=== PATIENT | male | born 1950 | race American Indian/Alaskan Native ===

== ENCOUNTER 2017-07-23 11:48 | Emergency (ER) | payer MEDICARE, OTHER ==
[2015-09-01 14:25] VITALS: BMI 23.3
[2017-07-23 11:53] VITALS: BP 152/81; PULSE 60; TEMP 98.4; O2SAT 94
--- NOTE | 2017-07-23 12:40 | RAD ---
HISTORY: SOB COMPARISON: Chest x-ray performed 02/27/16 TECHNIQUE: Chest PA and lateral FINDINGS: LUNGS: No focal consolidation. Please note that chest x-ray has limited sensitivity for the detection of pulmonary masses. PLEURA: No significant pleural effusion identified. No definite pneumothorax . CARDIOVASCULAR: Cardiomegaly. Tortuous aorta. OSSEOUS STRUCTURES: Degenerative changes of the spine. VISUALIZED UPPER ABDOMEN: Unremarkable. OTHER FINDINGS: None. IMPRESSION: No focal consolidation, significant pleural effusion, or definite pneumothorax identified.
[2017-07-23 12:48] LABS: BASO # 0.1 K/uL (0.0-0.2); BASO % 2.8 % (0.0-2.0); EOS # 0.5 K/uL (0.0-0.7); EOS % 10.8 % (0.0-4.0); HEMATOCRIT 44.1 % (35.0-51.0); LYMPH % 39.7 % (20.0-40.0); MEAN CELL VOLUME 91.9 fL (80.0-94.0); MEAN CORPUSCULAR HEMOGLOBIN 30.5 pg (27.0-31.0); MEAN CORPUSCULAR HGB CONC 33.2 g/dL (33.0-37.0); MEAN PLATELET VOLUME 8.8 fL (7.2-11.7); MONO # 0.7 K/uL (0.0-0.8); MONO % 14.9 % (0.0-10.0); NRBC % 0.1 % (0.0-2.0); RED CELL DISTRIBUTION WIDTH 14.2 % (11.5-14.5); WHITE BLOOD COUNT 4.9 K/uL (4.8-10.8)
--- NOTE | 2017-07-23 12:49 | C.PDOC ---
History Of Present Illness 66 yr old male with PMHx of COPD, presents to the ER with complaints of SOB for 1 week. Patient states he has been using his nebulizer treatments at home with no relief. Patient states he also started coughing up white sputum. He admits started smoking again. Denies fever or chest pain. Time Seen by Provider: 07/23/17 12:16 Chief Complaint (Nursing): Shortness Of Breath History Per: Patient History/Exam Limitations: no limitations Onset/Duration Of Symptoms: Days (1 week) Initiating Event: Exposure To Smoke Current Respiratory Medications: See Home Med List Associated Symptoms: Productive Cough Past Medical History Reviewed: Historical Data, Nursing Documentation, Vital Signs Vital Signs: Last Vital Signs Temp 98.4 F 07/23/17 11:50 Pulse 60 07/23/17 11:50 Resp 20 07/23/17 12:55 BP 152/81 H 07/23/17 11:50 Pulse Ox 94 L 07/23/17 13:21 - Medical History PMH: Asthma (CHILDHOOD), COPD, Fractures, HTN Surgical History: Coronary Stent (X2) Family History: States: No Known Family Hx - Social History Hx Alcohol Use: Yes Hx Substance Use: No - Immunization History Hx Tetanus Toxoid Vaccination: No Hx Influenza Vaccination: No Hx Pneumococcal Vaccination: No Review Of Systems Except As Marked, All Systems Reviewed And Found Negative. Constitutional: Negative for: Fever Cardiovascular: Negative for: Chest Pain Respiratory: Positive for: Cough, Shortness of Breath, Sputum (White) Gastrointestinal: Negative for: Vomiting, Abdominal Pain, Diarrhea Genitourinary: Negative for: Dysuria Skin: Negative for: Rash Neurological: Negative for: Weakness, Numbness, Headache, Dizziness Physical Exam - Physical Exam Appears: Non-toxic, No Acute Distress Skin: Warm, Dry, No Rash Head: Atraumatic, Normacephalic Eye(s): bilateral: Normal Inspection, EOMI Nose: Normal, No Flaring Oral Mucosa: Moist Throat: Normal, No Erythema, No Exudate Neck: Normal ROM, Supple Chest: Symmetrical, No Tenderness Cardiovascular: Rhythm Regular, No Murmur Respiratory: No Accessory Muscle Use, No Rales, Rhonchi (Scattered), Wheezing ( Bilateral ) Gastrointestinal/Abdominal: Normal Exam, Soft, No Tenderness, No Guarding, No Rebound Extremity: Normal ROM, No Pedal Edema, No Swelling Neurological/Psych: Oriented x3, Normal Speech Gait: Steady ED Course And Treatment - Laboratory Results Result Diagrams: 07/23/17 12:36 07/23/17 12:36 Lab Interpretation: No Acute Changes O2 Sat by Pulse Oximetry: 94 (RA) Pulse Ox Interpretation: Normal - Other Rad CXR X-Ray: Viewed By Me, Read By Radiologist Interpretation: HISTORY: SOB. COMPARISON: Chest x-ray performed 02/27/16. TECHNIQUE: Chest PA and lateral. FINDINGS: LUNGS: No focal consolidation. Please note that chest x-ray has limited sensitivity for the detection of pulmonary masses. PLEURA: No significant pleural effusion identified. No definite pneumothorax . CARDIOVASCULAR: Cardiomegaly. Tortuous aorta. OSSEOUS STRUCTURES: Degenerative changes of the spine. VISUALIZED UPPER ABDOMEN: Unremarkable. OTHER FINDINGS: None. IMPRESSION: No focal consolidation, significant pleural effusion, or definite pneumothorax identified. Medical Decision Making Medical Decision Making: Plan: * CXR * CBC * CMP * Albuterol IH * Solumedrol IVP Progress: CXR shows No focal consolidation, significant pleural effusion, or definite pneumothorax identified. Labs reviewed no leukocytosis or acute abnormality Patient was treated with duonebs and IV steroids. Patient observed in the ER for over 2 hours. Upon reevaluation patient is resting comfortably in no respiratory distress. He reports feeling better. Lung sounds have improved better air exchange, mild expiratory wheeze. He feels comfortable going home and asking for prescriptions. 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 Will discharge home and instruct to follow up with PCP Dr Hopper Disposition Counseled Patient/Family Regarding: Studies Performed, Diagnosis, Need For Followup, Rx Given, Smoking Cessation - Disposition Referrals: Hi Hopper MD [Staff Provider] - Disposition: HOME/ ROUTINE Disposition Time: 14:40 Condition: IMPROVED Additional Instructions: Follow up with your primary medical doctor Ruchi in 2-5 days for further evaluation. Take medications as prescribed. Return to the emergency department at any time if symptoms persist or worsen. 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 - Scribe Statement The provider has reviewed the documentation as recorded by the Scribe Chely Giraldo All medical record entries made by the Scribe were at my direction and personally dictated by me. I have reviewed the chart and agree that the record accurately reflects my personal performance of the history, physical exam, medical decision making, and the department course for this patient. I have also personally directed, reviewed, and agree with the discharge instructions and disposition.
[2017-07-23] MEDS ORDERED: Albuterol-Ipratrop 3 mg / 0.5 (3 ml) UD ONE ×2 (12:50→13:03)
[2017-07-23] MEDS: Albuterol-Ipratrop 3 mg / 0.5 (3 ml) UD IH SCH ×3 (12:52→13:15)
[2017-07-23 12:57] VITALS: RESP 20
[2017-07-23 13:00] LABS: CHLORIDE 101 mmol/L (98-107); POTASSIUM 4.4 mmol/L (3.6-5.2); SODIUM 143 mmol/L (132-148)
[2017-07-23 13:02] LABS: ALB/GLOB RATIO 1.1 (1.0-2.1); AST/SGOT 29 U/L (17-59); BILIRUBIN,TOTAL 0.9 mg/dL (0.2-1.3); CARBON DIOXIDE 28 mmol/L (22-30); GFR AFRICAN-AMERICAN > 60; TOTAL PROTEIN 7.3 g/dL (6.3-8.3)
[2017-07-23 13:03] LABS: ALKALINE PHOSPHATASE 101 U/L (38-126); ALT/SGPT 26 U/L (21-72); BLOOD UREA NITROGEN 13 mg/dL (9-20); CALCIUM 9.7 mg/dl (8.6-10.4); GLUCOSE,RANDOM 80 mg/dL (75-110)
== END 2017-07-23 14:49 | disposition home or self-care (01) ==
LOC: C.ER 11:48
DX: J44.1 Chronic obstructive pulmonary disease with (acute) exacerbation (principal)
CPT/HCPCS: 71020; 80053; 83880; 85025; 94150; 94640; 96374; 99283; J2930

== ENCOUNTER 2018-12-17 09:13 | Inpatient (IN) | payer MEDICARE ==
[2018-12-17 09:28] VITALS: BMI 25.9
[2018-12-17] MEDS ORDERED: Iodixanol 320 MG/ML 100 ML BOTTLE IV ONE ×2 (09:35→09:41)
[2018-12-17 09:39] LABS: BASO % 0.9 % (0.0-2.0); EOS # 0.1 K/uL (0.0-0.7); EOS % 3.2 % (0.0-4.0); HEMOGLOBIN 14.6 g/dL (12.0-18.0); LYMPH % 51.7 % (20.0-40.0); MEAN CORPUSCULAR HGB CONC 33.3 g/dL (33.0-37.0); MEAN PLATELET VOLUME 8.6 fL (7.2-11.7); MONO # 0.5 K/uL (0.0-0.8); MONO % 13.9 % (0.0-10.0); NEUT # 1.2 K/uL (1.8-7.0); NEUT % 30.3 % (50.0-75.0); RBC 4.7 Mil/uL (4.40-5.90); RED CELL DISTRIBUTION WIDTH 13.6 % (11.5-14.5); WHITE BLOOD COUNT 3.9 K/uL (4.8-10.8)
--- NOTE | 2018-12-17 09:41 | C.PDOC ---
History Of Present Illness 68 year old male with a PMHx of HTN brought in by for complaints of left upper extremity weakness that began at 7:00am while making breakfast. Patient also felt right-sided facial weakness and was having some difficulty with speech per at bedside. He denies any facial numbness/droop, visual loss, dizziness, headache, chest pain, or SOB. Patient also reports he felt off balance while walking. On arrival, he states symptoms are completely resolved and he has no focal weakness. Patient speaking in full sentences. Seen im mediately on arrival and Code Stroke initiated. Time Seen by Provider: 12/17/18 09:30 Chief Complaint (Nursing): Weakness/Neurological Deficit History Per: Patient History/Exam Limitations: no limitations Onset/Duration Of Symptoms: Hrs (x 1) Current Symptoms Are (Timing): Still Present Seizure Or Post-ictal Symptoms: None Past Medical History Reviewed: Historical Data, Nursing Documentation, Vital Signs Vital Signs: Last Vital Signs Temp 97.8 F 12/17/18 09:18 Pulse 67 12/17/18 09:18 Resp 18 12/17/18 09:18 BP 154/89 H 12/17/18 09:18 Pulse Ox 99 12/17/18 09:18 - Medical History PMH: Asthma (CHILDHOOD), COPD, Fractures, HTN Denies: Chronic Kidney Disease Surgical History: Coronary Stent (X2) Family History: States: No Known Family Hx - Social History Hx Alcohol Use: Yes Hx Substance Use: No - Immunization History Hx Tetanus Toxoid Vaccination: No Hx Influenza Vaccination: No Hx Pneumococcal Vaccination: No Review Of Systems Constitutional: Negative for: Fever Eyes: Negative for: Vision Change Cardiovascular: Negative for: Chest Pain, Palpitations Respiratory: Negative for: Cough, Shortness of Breath Gastrointestinal: Negative for: Nausea, Vomiting, Diarrhea Musculoskeletal: Negative for: Back Pain Skin: Negative for: Rash, Lesions Neurological: Positive for: Weakness (left arm weakness and right facial weakness, now resolved), Change in Speech (now resolved). Negative for: Numbness, Incoordination, Confusion, Headache, Dizziness Physical Exam - Physical Exam Appears: Non-toxic, No Acute Distress Skin: Normal Color, Warm, Dry Head: Atraumatic, Normacephalic Eye(s): bilateral: Normal Inspection (conjunctiva clear, no nystagmus), PERRL, EOMI Nose: Normal Oral Mucosa: Moist Neck: Normal ROM Chest: Symmetrical Cardiovascular: Rhythm Regular, No Murmur Respiratory: Normal Breath Sounds, No Rales, No Rhonchi, No Wheezing Gastrointestinal/Abdominal: Soft, No Tenderness, No Distention Extremity: Bilateral: Atraumatic, Normal Color And Temperature, Normal ROM, Other (Bolt Sawyer strength equal bilaterally) Pulses: Left Dorsalis Pedis: Normal, Right Dorsalis Pedis: Normal Neurological/Psych: Oriented x3, Normal Speech (speaking in full sentences, no slur), Normal Cognition, Normal Cranial Nerves (2-12 grossly intact), Normal Motor, Normal Sensation, No Expressive Aphasia, No Dysarthria, Other (No drift, extremities with 5/5 strength throughout, patient following commands) Gait: Steady Other Neurological Findings: No Facial Palsy Extremity: Right: No Drift, Left: No Drift, Upper: No Drift, Lower: No Drift ED Course And Treatment - Laboratory Results Result Diagrams: 12/20/18 05:40 12/20/18 05:40 ECG: Interpreted By Me, Viewed By Ut ECG Rhythm: Sinus Bradycardia ECG Interpretation: No Acute Changes Rate From EC (bpm) O2 Sat by Pulse Oximetry: 99 (RA) Pulse Ox Interpretation: Normal - Other Rad CXR X-Ray: Read By Radiologist Interpretation: Accession No. : [id number]. Patient Name / ID : MARE CONTI / [id number]. Exam Date : 12/17/2018 09:43:02 ( Approved ). Study Comment : Sex / Age : M / 68Y. Creator : Zain Baer MD. Dictator : Zain Baer MD. Courtesy Driver : Hide Examiner : Zain Baer MD. Approver2 : Report Date : 12/17/2018 09:56:06. My Comment : . Date of service: 12/17/2018. HISTORY: Code Stroke. COMPARISON: 07/23/2017. FINDINGS: LUNGS: No active pulmonary disease. PLEURA: Curvilinear calcification at the level of the right hemidiaphragm which may be related to calcified diaphragmatic pleural plaque. This is not evident on the prior chest radiograph of 2017. This could indicate asbestos related pleural disease but is not certain merely on the basis of this examination. No pleural effusion or pneumothorax. CARDIOVASCULAR: No aortic atherosclerotic calcification present. Normal cardiac size. No pulmonary vascular congestion. OSSEOUS STRUCTURES: No significant abnormalities. V ISUALIZED UPPER ABDOMEN: Normal. OTHER FINDINGS: None. IMPRESSION: No infiltrate. Questionable calcified pleural plaque along right nish diaphragmatic pleural surface. No additional abnormality. - CT Scan/US CT Head Other Rad Studies (CT/US): Read By Radiologist, Radiology Report Reviewed CT/US Interpretation: Accession No. : [id number]. Patient Name / ID : MARE CONTI / [id number]. Exam Date : 12/17/2018 09:34:05 ( Approved ). Study Comment : Sex / Age : M / 68Y. Creator : Zain Baer MD. Dictator : Zain Baer MD. Courtesy Driver : Hide Examiner : Zain Baer MD. Approver2 : Report Date : 12/17/2018 09:47:15. My Comment : . Date of service: 12/17/2018. PROCEDURE: CT HEAD WITHOUT CONTRAST. HISTORY: Code Stroke. COMPARISON: Not available. TECHNIQUE: Axial computed tomography images were obtained through the head/brain without intravenous contrast. Radiation dose: Total exam DLP = 1060.58 mGy-cm. This CT exam was performed using one or more of the following dose reduction techniques: Automated exposure control, adjustment of the mA and/or kV according to patient size, and/or use of iterative reconstruction technique. FINDINGS: HEMORRHAGE: No intracranial hemorrhage. BRAIN: No mass effect or edema. No evidence of acute infarct. Minimal chronic periventricular matter ischemic change adjacent to the frontal horns of lateral ventricles. VENTRICLES: Unremarkable. No hydrocephalus. CALVARIUM: Unremarkable. PARANASAL SINUSES: Unremarkable as visualized. No significant inflammatory changes. MASTOID AIR CELLS: Unremarkable as visualized. No inflammatory changes. OTHER FINDINGS: None. IMPRESSION: No evidence of acute infarct. No intracranial hemorrhage. Minimal chronic white matter ischemic change. Findings were discussed by telephone with Dr. Concepcion at 9:46 a.m. on 12/17/2018. CTA Head/Neck Other Rad Studies (CT/US): Read By Radiologist, Radiology Report Reviewed CT/US Interpretation: Accession No. : [id number]. Patient Name / ID : MARE CONTI / [id number]. Exam Date : 12/17/2018 09:38:22 ( Approved ). Study Comment : Sex / Age : M / 68Y. Creator : Babak Abdul MD. Dictator : Babak Abdul MD. Courtesy Driver : Hide Examiner : Babak Abdul MD. Approver2 : Report Date : 12/17/2018 10:40:17. My Comment : . Date of service: 12/17/2018. PROCEDURE: CT Angiography of the Brain. HISTORY: code stroke. COMPARISON: None available. TECHNIQUE: CT angiography of the intracranial arteries was performed. Coronal and sagittal maximum intensity projection reformated images were generated. Radiation dose: Total exam DLP = 615.93 mGy- cm. This CT exam was performed using one or more of the following dose reduction techniques: Automated exposure control, adjustment of the mA and/or kV according to patient size, and/or use of iterative reconstruction technique. FINDINGS: INTERNAL CEREBRAL ARTERIES: Atherosclerotic plaques identified at the bilateral cavernous internal carotid artery segments resulting in at least a moderate stenosis at the right ICA but no significant stenosis at the left. The skull base, petrous, and supraclinoid segments are otherwise bilaterally widely patent. ANTERIOR CEREBRAL ARTERIES: Unremarkable. A1 and A2 segments are widely patent. Smaller distal branches unremarkable, as visualized. MIDDLE CEREBRAL ARTERIES: Unremarkable. M1 and M2 segments are widely patent. Perisylvian branches grossly symmetric. POSTERIOR CIRCULATION: Basilar Artery: Ectatic, widely patent basilar artery. Distal Vertebral Arteries: Hypoplastic right vertebral artery with left dominant vertebrobasilar circulation. Posterior Cerebral Arteries: Unremarkable. Posterior Inferior Cerebellar Arteries: Unremarkable. NECK CTA: Common Carotid arteries: Limited bilateral carotid bulbar atherosclerosis, partially calcified. The bilateral common carotid appear widely patent from their origins to their bifurcations with no significant stenosis appreciated. No evidence to suggest common carotid artery dissection. Internal Carotid arteries: No significant stenosis is appreciated throughout the cervical internal carotid artery segments bilaterally and there is no evidence of dissection either. External Carotid arteries: Appear unremarkable bilaterally. Vertebral arteries: The bilateral vertebral arteries appear patent from their origins to their distal cervical segments. No significant stenosis or definite pattern of dissection. Moderately hypoplastic right vertebral artery identified. ANEURYSM/ VASCULAR MALFORMATIONS: None. OTHER FINDINGS: None. IMPRESSION: 1. Limited bilateral carotid bulbar atherosclerosis without significant stenosis in the bilateral common or internal carotid arteries identified. 2. Bilateral cavernous partially calcified atherosclerosis with a least moderate stenosis at the right but no significant left-sided stenosis. Bilateral ICAs appear patent through their bifurcations. 3. No definite intracranial or extracranial arterial occlusion appreciable. 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 NIHSS Stroke Scale 2 - Date/Time Evaluation Performed Date Performed: 12/17/18 Time Performed: 09:20 When Was NIHSS Performed: Code Stroke - How Severe is the Stroke Level of Consciousness: 0=Alert LOC to Questions: 0=Both comments correct LOC to commands: 0=Obeys both correctly Best Gaze: 0=Normal Visual: 0=No visual loss Facial: 0=Normal Motor Arm - Left: 0=No drift Motor Arm - Right: 0=No drift Motor Leg - Left: 0=No drift Motor Leg - Right: 0=No drift Limb Ataxia: 0=Absent Sensory: 0=Normal Best Language: 0=No aphasia Dysarthia: 0=Normal articulation Extinction & Inattention (Neglect): 0=Normal, no object Score: 0 Medical Decision Making Medical Decision Makin:21 Patient was seen and evaluated immediately. Code Stroke orders placed. Pending CT Head. 9:[address] Medrano who advises that given all symptoms resolved, patient is not a TPA candidate. Requests CTA head/neck. 9:46 Informed by radiology that CT is negative for intracranial bleeding. Still pending labs, EKG, and CTA. 9:[address] Arrington, advised that AI picked up a large vessel occlusion on the scan. MRA and MRI likely recommended. 10:[address] Medrano, who advised not to order MRA but wants MRI of the brain. She recommends Integrilin 45mcg/kg bolus, and 0.5mcg/kg/min infusion. 10:07 Informed by RN that patient is currently unable to speak, non-verbal, not responding to questions. 10:11 Went to reassess patient, who is now speaking normally again. Episode lasted ~30 seconds per nursing staff at bedside. Sinus bradycardia @ 59 bpm, left axis deviation, normal intervals, no ST elevations or depressions 10:[address] Medrano, updated on clinical condition, and recommends giving IV fluids. 10:[address] Medrano, who discussed with neuro-interventionalists. Dr. Medrano states they want to transfer the patient to [place], where there is an open OR. Dr. Medrano is en route to evaluate the patient in the ED. 10:[address] Kahn, who reviewed CTA, states there is no occlusion. 10:48 Dr. Medrano is at bedside, evaluating patient. States she spoke again with interventionalists, plan is no longer to be transferred patient to be admitted to ICU. Now requesting MRA. Case discussed with Dr. Hopper, who accepts patient to his service. Paged Dr. Chidi mcgrath for ICU consult. 11:25 Left voice mail for lottery clerk, Dr. Degroot 11:31 Received call back from Dr. Degroot, patient accepted to ICU. Disposition Counseled Patient/Family Regarding: Studies Performed, Diagnosis - Disposition Disposition: HOSPITALIZED Disposition Time: 11:31 Condition: STABLE - POA Present On Arrival: None Core Measure Indicators: Code Stroke - Clinical Impression Clinical Impression: CVA (cerebral vascular accident) - Scribe Statement The provider has reviewed the documentation as recorded by the Milady Lindo Provider Attestation: All medical record entries made by the Briaibgiovanni were at my direction and personally dictated by me. I have reviewed the chart and agree that the record accurately reflects my personal performance of the history, physical exam, medical decision making, and the department course for this patient. I have also personally directed, reviewed, and agree with the discharge instructions and disposition. Decision To Admit - Pt Status Changed To: Hospital Disposition Of: Inpatient - Admit Certification Admit to Inpatient:: After my assessment, the patient will require hospitalization for at least two midnights. This is because of the severity of symptoms shown, intensity of services needed, and/or the medical risk in this patient being treated as an outpatient. - InPatient: Physician Admission Certification: I certify that this patient requires 2 or more midnights of care for the following reason:: CVA - . Bed Request Type: ICU Patient Diagnosis: CVA (cerebral vascular accident)
[2018-12-17 09:45] LABS: PROTHROMBIN TIME 11.2 SECONDS (9.7-12.2)
--- NOTE | 2018-12-17 09:51 | CT ---
Date of service: 12/17/2018 PROCEDURE: CT HEAD WITHOUT CONTRAST. HISTORY: Code Stroke COMPARISON: Not available TECHNIQUE: Axial computed tomography images were obtained through the head/brain without intravenous contrast. Radiation dose: Total exam DLP = 1060.58 mGy-cm. This CT exam was performed using one or more of the following dose reduction techniques: Automated exposure control, adjustment of the mA and/or kV according to patient size, and/or use of iterative reconstruction technique. FINDINGS: HEMORRHAGE: No intracranial hemorrhage. BRAIN: No mass effect or edema. No evidence of acute infarct. Minimal chronic periventricular matter ischemic change adjacent to the frontal horns of lateral ventricles. VENTRICLES: Unremarkable. No hydrocephalus. CALVARIUM: Unremarkable. PARANASAL SINUSES: Unremarkable as visualized. No significant inflammatory changes. MASTOID AIR CELLS: Unremarkable as visualized. No inflammatory changes. OTHER FINDINGS: None. IMPRESSION: No evidence of acute infarct. No intracranial hemorrhage. Minimal chronic white matter ischemic change. Findings were discussed by telephone with Dr. Concepcion at 9:46 a.m. on 12/17/2018.
[2018-12-17 09:55] LABS: ALB/GLOB RATIO 1.4 (1.0-2.1); ALBUMIN 4.8 g/dL (3.5-5.0); ALT/SGPT 10 U/L (21-72); AST/SGOT 29 U/L (17-59); BLOOD UREA NITROGEN 21 mg/dL (9-20); CALCIUM 9.6 mg/dl (8.6-10.4); GFR NON-AFRICAN AMERICAN 47; HDL CHOLESTEROL 52 mg/dL (30-70)
--- NOTE | 2018-12-17 09:59 | RAD ---
Date of service: 12/17/2018 HISTORY: Code Stroke COMPARISON: 07/23/2017 FINDINGS: LUNGS: No active pulmonary disease. PLEURA: Curvilinear calcification at the level of the right hemidiaphragm which may be related to calcified diaphragmatic pleural plaque. This is not evident on the prior chest radiograph of 2017. This could indicate asbestos related pleural disease but is not certain merely on the basis of this examination. No pleural effusion or pneumothorax. CARDIOVASCULAR: No aortic atherosclerotic calcification present. Normal cardiac size. No pulmonary vascular congestion. OSSEOUS STRUCTURES: No significant abnormalities. VISUALIZED UPPER ABDOMEN: Normal. OTHER FINDINGS: None. IMPRESSION: No infiltrate. Questionable calcified pleural plaque along right nish diaphragmatic pleural surface. No additional abnormality.
[2018-12-17] MEDS ORDERED: Eptifibatide 20 mg/10mL Inj IVP ONE ×3 (10:05→10:36)
[2018-12-17 10:06] LABS: LDL CHOLESTEROL 86 mg/dL (0-129)
[2018-12-17] MEDS ORDERED: Sodium Chloride 0.9% 1,000 ML IV ONE (10:15)
[2018-12-17] MEDS: Eptifibatide 0.75 mg/ml 75 MG/100 ML BOTTLE IV SCH (10:43)
--- NOTE | 2018-12-17 10:44 | CT ---
Date of service: 12/17/2018 PROCEDURE: CT Angiography of the Brain. HISTORY: code stroke COMPARISON: None available. TECHNIQUE: CT angiography of the intracranial arteries was performed. Coronal and sagittal maximum intensity projection reformated images were generated. Radiation dose: Total exam DLP = 615.93 mGy-cm. This CT exam was performed using one or more of the following dose reduction techniques: Automated exposure control, adjustment of the mA and/or kV according to patient size, and/or use of iterative reconstruction technique. FINDINGS: INTERNAL CEREBRAL ARTERIES: Atherosclerotic plaques identified at the bilateral cavernous internal carotid artery segments resulting in at least a moderate stenosis at the right ICA but no significant stenosis at the left. The skull base, petrous, and supraclinoid segments are otherwise bilaterally widely patent. ANTERIOR CEREBRAL ARTERIES: Unremarkable. A1 and A2 segments are widely patent. Smaller distal branches unremarkable, as visualized. MIDDLE CEREBRAL ARTERIES: Unremarkable. M1 and M2 segments are widely patent. Perisylvian branches grossly symmetric. POSTERIOR CIRCULATION: Basilar Artery: Ectatic, widely patent basilar artery. Distal Vertebral Arteries: Hypoplastic right vertebral artery with left dominant vertebrobasilar circulation. Posterior Cerebral Arteries: Unremarkable. Posterior Inferior Cerebellar Arteries: Unremarkable. NECK CTA: Common Carotid arteries: Limited bilateral carotid bulbar atherosclerosis, partially calcified. The bilateral common carotid appear widely patent from their origins to their bifurcations with no significant stenosis appreciated. No evidence to suggest common carotid artery dissection. Internal Carotid arteries: No significant stenosis is appreciated throughout the cervical internal carotid artery segments bilaterally and there is no evidence of dissection either. External Carotid arteries: Appear unremarkable bilaterally. Vertebral arteries: The bilateral vertebral arteries appear patent from their origins to their distal cervical segments. No significant stenosis or definite pattern of dissection. Moderately hypoplastic right vertebral artery identified. ANEURYSM/ VASCULAR MALFORMATIONS: None. OTHER FINDINGS: None. IMPRESSION: 1. Limited bilateral carotid bulbar atherosclerosis without significant stenosis in the bilateral common or internal carotid arteries identified. 2. Bilateral cavernous partially calcified atherosclerosis with a least moderate stenosis at the right but no significant left-sided stenosis. Bilateral ICAs appear patent through their bifurcations. 3. No definite intracranial or extracranial arterial occlusion appreciable. 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
[2018-12-17] MEDS: Sodium Chloride 0.9% 1,000 ML IV SCH ×3 (11:47→22:00)
--- NOTE | 2018-12-17 12:09 | CP.PCM.CON ---
History of Present Illness - History of Present Illness History of Present Illness: Neurology consult called by ER attending Dr. Concepcion. 68 yr old male who came in as a code stroke, but is not a TPA candidate. Mr. Hdz was well this morning, when he developed right sided weakness, and aphasia, which resolved, and then one hour later, he developed left arm weakness. CTA head and neck was done and showed a M1 occlusion of the MCA as per interventional neurologist. He was admitted to ICU, and will be monitored for further progression of symptoms. Intervention was not planned as the patients NIH stroke scale was 0 and he had good collaterals. THere is no prior history of symptoms as per family and he is now well with no complaints. NIHSS: 0. ROS: no headache, no nausea, no vomiting, no numbness, no tingling. 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 No tobacco, no etoh. All: nkda On exam: AAox3. PERRL. Cn 2-12 normal. EOMI. VFF. Speech fluent. Can name and repeat. No paraphasic errors. motor: tone normal. strength: 5/5 ul and ll bl. Sensory: intact ft, pin, position and vibration sense. Cerebellar: f/n no dysmetria Gait: normal. no ataxia +2 dtr ul and ll bl. Toes downgoing. No clonus. Past Patient History - Infectious Disease Hx of Infectious Diseases: None - Past Medical History & Family History Past Medical History?: Yes - Past Social History Smoking Status: Light Smoker < 10 Cigarettes Daily - CARDIAC Hx Hypertension: Yes - PULMONARY Hx Asthma: Yes (CHILDHOOD) Hx Chronic Obstructive Pulmonary Disease (COPD): Yes - NEUROLOGICAL Hx Neurological Disorder: No - HEENT Hx HEENT Problems: Yes Other/Comment: WEARS GLASSES - RENAL Hx Chronic Kidney Disease: No - ENDOCRINE/METABOLIC Hx Endocrine Disorders: No - HEMATOLOGICAL/ONCOLOGICAL Hx Blood Disorders: No Hx Blood Transfusions: No - INTEGUMENTARY Hx Dermatological Problems: No - MUSCULOSKELETAL/RHEUMATOLOGICAL Hx Fractures: Yes - GASTROINTESTINAL Hx Gastrointestinal Disorders: No - GENITOURINARY/GYNECOLOGICAL Hx Genitourinary Disorders: No - PSYCHIATRIC Hx Substance Use: No - SURGICAL HISTORY Hx Coronary Stent: Yes (X2) - ANESTHESIA Hx Anesthesia: Yes Hx Anesthesia Reactions: No Hx Malignant Hyperthermia: No Meds Allergies/Adverse Reactions: Allergies Allergy/AdvReac Type Severity Reaction Status Date / Time No Known Allergies Allergy Verified 12/17/18 09:30 - Medications Medications: Current Medications Eptifibatide (Integrilin) 75 mg in 100 mls @ 2.921 mls/hr IV .Q24H [facility] Last Admin: 12/17/18 10:43 Dose: 2.921 mls/hr Sodium Chloride (Sodium Chloride 0.9%) 1,000 mls @ 150 mls/hr IV .Q6H40M [facility] Last Admin: 12/17/18 11:47 Dose: Not Given Results - Vital Signs Recent Vital Signs: Last Vital Signs Temp 97.8 F 12/17/18 09:18 Pulse 65 12/17/18 10:00 Resp 12 12/17/18 10:00 BP 148/99 H 12/17/18 10:00 Pulse Ox 99 12/17/18 11:38 - Labs Result Diagrams: 12/19/18 06:24 12/19/18 06:21 Labs: Laboratory Results - last 24 hr 12/17/18 12/17/18 12/17/18 09:26 09:28 09:32 WBC 3.9 L RBC 4.70 Hgb 14.6 Hct 43.7 MCV 93.0 MCH 31.0 MCHC 33.3 RDW 13.6 Plt Count 241 MPV 8.6 Neut % (Auto) 30.3 L Lymph % (Auto) 51.7 H [place] % (Auto) 13.9 H Eos % (Auto) 3.2 Baso % (Auto) 0.9 Neut # (Auto) 1.2 L Lymph # (Auto) 2.0 [place] # (Auto) 0.5 Eos # (Auto) 0.1 Baso # (Auto) 0.0 PT INR APTT Sodium Potassium Chloride Carbon Dioxide Anion Gap BUN Creatinine Est GFR ( Amer) Est GFR (Non-Af Amer) POC Glucose (mg/dL) 103 Random Glucose Hemoglobin A1c 5.7 Calcium Total Bilirubin AST ALT Alkaline Phosphatase Troponin I Total Protein Albumin Globulin Albumin/Globulin Ratio Triglycerides Cholesterol LDL Cholesterol Direct HDL Cholesterol Blood Type Antibody Screen 12/17/18 12/17/18 12/17/18 09:32 09:32 09:53 WBC RBC Hgb Hct MCV MCH MCHC RDW Plt Count MPV Neut % (Auto) Lymph % (Auto) [place] % (Auto) Eos % (Auto) Baso % (Auto) Neut # (Auto) Lymph # (Auto) [place] # (Auto) Eos # (Auto) Baso # (Auto) PT 11.2 INR 1.0 APTT 30 Sodium 140 Potassium 3.7 Chloride 103 Carbon Dioxide 29 Anion Gap 12 BUN 21 H Creatinine 1.5 Est GFR ( Amer) 56 Est GFR (Non-Af Amer) 47 POC Glucose (mg/dL) Random Glucose 113 H D Hemoglobin A1c Calcium 9.6 Total Bilirubin 0.7 AST 29 ALT 10 L D Alkaline Phosphatase 97 Troponin I < 0.0120 Total Protein 8.1 Albumin 4.8 Globulin 3.3 Albumin/Globulin Ratio 1.4 Triglycerides 97 Cholesterol 162 LDL Cholesterol Direct 86 HDL Cholesterol 52 Blood Type O POSITIVE Antibody Screen Negative Assessment & Plan - Assessment and Plan (Free Text) Assessment: 68 yr old male with probable TIAS in left mca distribution, with a possible differential of epilepsy. We will admit him to ICU and monitor for further even ts. He is not a TPA candidate due to resolution of symptoms. Plan: 1. Admit to ICU 2. Neuro checks q one hour with any change in mental status please call neurology 3. start integrilin at 2mcg/kg/min 4. MRI MRA brain 5. Lipid profile 6. PT ST OT 7. EEG. 8. ECHO Thank you Harvey Carroll MD DPN Neurology
[2018-12-17] MEDS ORDERED: Gadodiamide 287 MG/ML VIAL (15ML) IV ONE (12:15)
--- NOTE | 2018-12-17 12:32 | MRI ---
Date of service: 12/17/2018 PROCEDURE: MR Angiography of the neck without contrast HISTORY: cva COMPARISON: None available. TECHNIQUE: 3D [id number] angiography of the neck was performed. Rotating maximum intensity projection images of the cervical carotid and vertebral arteries were generated. The origins of the common carotid arteries were not visualized, which is a limitation inherent to the non-contrast time of flight technique. FINDINGS: RIGHT CAROTID ARTERIES: Common Carotid Artery: Widely patent without significant stenosis. Carotid Bifurcation: Prominent atherosclerotic plaque is identified at the right carotid bulb. Internal Carotid Artery:Patent diffusely as imaged, without significant stenosis. Mild stenosis is identified at the proximal intra canalicular ICA segment at the skull base well proximal to the cavernous segment. External Carotid Artery (proximal branches): Normal. LEFT CAROTID ARTERIES: Common Carotid Artery: Widely patent without significant stenosis apparent. Carotid Bifurcation: [id number] atherosclerotic plaque is identified at the left carotid bulb Internal Carotid Artery:Patent diffusely as imaged with no significant stenosis appreciated. External Carotid Artery (proximal branches): Normal. VERTEBRAL ARTERIES: Right Vertebral Artery: Moderately hypoplastic throughout. Left Vertebral Artery: Normal. OTHER FINDINGS: None. IMPRESSION: No significant stenosis bilateral common or internal carotid arteries with prominent right and [id number] left carotid bulbar atherosclerotic plaque identified. No significant stenosis in either common or internal carotid artery as imaged.
--- NOTE | 2018-12-17 12:41 | MRI ---
Date of service: 12/17/2018 PROCEDURE: MRI BRAIN WITH AND WITHOUT CONTRAST HISTORY: cva COMPARISON: Noncontrast head CT 12/17/2018 9:34 a.m.. TECHNIQUE: Multiplanar, multisequence MR images of the brain were obtained with and without intravenous contrast enhancement (Omniscan 12 cc). FINDINGS: HEMORRHAGE: None DWI: No evidence of an acute or early subacute infarction. BRAIN PARENCHYMA: Good corticomedullary differentiation is seen. Reiterated limited diffuse cerebral atrophy and chronic microangiopathy. No suspicious extra-axial fluid collection is identified and the midline brain anatomy appears grossly nonfocal as imaged. No mass effect identified. ENHANCEMENT: No abnormal intracranial enhancement. VENTRICLES: Unremarkable. No hydrocephalus. CRANIUM: Unremarkable. ORBITS: Grossly unremarkable. PARANASAL SINUSES/MASTOIDS: Clear VASCULAR SYSTEM: Skull base flow voids intact. OTHER FINDINGS: None . IMPRESSION: Stable age-appropriate limited age related neuro degenerative change are identified as discussed above. There is no abnormal intracranial enhancement throughout the brain or extra-axial spaces..
--- NOTE | 2018-12-17 13:08 | MRI ---
Date of service: 12/17/2018 PROCEDURE: Magnetic Resonance Angiography Brain HISTORY: cva COMPARISON: CT angiogram of the head and neck 12/17/2018 9:41 a.m.. TECHNIQUE: 3D time of flight MR angiography of the intracranial arteries was performed. Rotating maximum intensity projection images were generated. FINDINGS: This examination is inferior to the CT angiogram of the head and neck performed 12/17/2018 due to the current study's motion artifacts and lack of intravenous contrast (by nature). INTERNAL CAROTID ARTERIES: The skull base, petrous, cavernous and supraclinoid segments are patient. No high-grade stenosis appreciable. No significant cavernous internal artery stenosis appreciable in the current exam, however, prior CT a is more lie oval than the current images. ANTERIOR CEREBRAL ARTERIES: Based on source images, A1 and A2 segments are patent. No significant stenosis appreciated. No occlusion. Smaller distal branches unremarkable, as visualized. Reformatted data sets poorly reformat the right A1 segment. MIDDLE CEREBRAL ARTERIES: Attenuation of M3 branches of the bilateral anterior and middle cerebral arteries is appreciated which is not apparent in the prior CT angiogram noted above. M1 and M2 branches appear adequately patent POSTERIOR CIRCULATION: Basilar Artery: Motion artifacts obscure basilar artery though ectasis is reiterated compared to the prior exam noted above. Distal Vertebral Arteries: Hypoplastic right vertebral artery with dominant left vertebrobasilar circulation identified. Posterior Cerebral Arteries: Unremarkable. Posterior Inferior Cerebellar Arteries: Unremarkable. ANEURYSM/ VASCULAR MALFORMATIONS: None. OTHER FINDINGS: None. IMPRESSION: Limited examination due to motion artifacts. This is most apparent in evaluation of the basilar artery, including source images. No significant interval stenosis or occlusion is felt to be present, particularly based on source images in this noncontrast MRI of the brain. The CT angiogram of the brain is felt to be far more robust in evaluation of the arterial anatomy of the brain and neck unless there has been a significant change in the neurological status since prior CT head and neck 12/17/2018 9:41 a.m.. Note, no acute intracranial findings are demonstrated in brain MRI immediately preceding this examination 12/17/2018.
--- NOTE | 2018-12-17 16:10 | CP.PCM.CON ---
History of Present Illness - History of Present Illness History of Present Illness: PGY-1 ICU consult note for Dr Degroot service CC: weakness, slurred speech, CODE stroke Patient is 68 year old male with pmhx of asthma, CAD with stents that came to the ED this morning after noticing that he was dropping objects and could not pick them, such as a frying larios and cup of coffee. Patient admits this never happened in this intensity anymore. Patient felt weak as well, could not get up from bed. Patient states he saw left lower side of face droop when he saw himself in the mirror. took him to the ED. Code stroke activated in the ED, but patient was outside [place] for tPA. In ed, patient noticed to have aphasia, which resolved an hour later, and then he developed left arm weakness. Patient seen in ICU, not feeling weak, reports no acute complaints at this time, AAOx3. Denies fever, chills, chest pain, headaches, or any other complaints Pmhx: asthma, CAD, Stents shx: unspecified leg and arm surgery all: NKDA Fmhx: CAD/NE (mother) Fmhx: 1 pack /day for 30 years, no alcohol, tobacco use Review of Systems - Review of Systems All systems: reviewed and no additional remarkable complaints except Review of Systems: as stated in HPI Past Patient History - Infectious Disease Hx of Infectious Diseases: None - Past Medical History & Family History Past Medical History?: Yes - Past Social History Smoking Status: Current Some Days Smoker - CARDIAC Hx Hypertension: Yes - PULMONARY Hx Asthma: Yes (CHILDHOOD) Hx Chronic Obstructive Pulmonary Disease (COPD): Yes - NEUROLOGICAL Hx Neurological Disorder: No - HEENT Hx HEENT Problems: Yes Other/Comment: WEARS GLASSES - RENAL Hx Chronic Kidney Disease: No - ENDOCRINE/METABOLIC Hx Endocrine Disorders: No - HEMATOLOGICAL/ONCOLOGICAL Hx Blood Disorders: No Hx Blood Transfusions: No - INTEGUMENTARY Hx Dermatological Problems: No - MUSCULOSKELETAL/RHEUMATOLOGICAL Hx Falls: No - GASTROINTESTINAL Hx Gastrointestinal Disorders: No - GENITOURINARY/GYNECOLOGICAL Hx Genitourinary Disorders: No - PSYCHIATRIC Hx Substance Use: No - SURGICAL HISTORY Hx Coronary Stent: Yes (X2) - ANESTHESIA Hx Anesthesia: Yes Hx Anesthesia Reactions: No Hx Malignant Hyperthermia: No Meds Allergies/Adverse Reactions: Allergies Allergy/AdvReac Type Severity Reaction Status Date / Time No Known Allergies Allergy Verified 12/17/18 09:30 - Medications Medications: Current Medications Famotidine (Pepcid) 20 mg IVP Q12 [facility] Eptifibatide (Integrilin) 75 mg in 100 mls @ 2.921 mls/hr IV .Q24H [facility] Last Admin: 12/17/18 10:43 Dose: 2.921 mls/hr Sodium Chloride (Sodium Chloride 0.9%) 1,000 mls @ 150 mls/hr IV .Q6H40M [facility] Last Admin: 12/17/18 11:47 Dose: Not Given Physical Exam - Constitutional Appears: Non-toxic, No Acute Distress - Head Exam Head Exam: ATRAUMATIC, NORMAL INSPECTION, NORMOCEPHALIC - Eye Exam Eye Exam: EOMI, Normal appearance Pupil Exam: NORMAL ACCOMODATION - ENT Exam ENT Exam: Mucous Membranes Moist, Normal Exam - Neck Exam Neck exam: Positive for: Normal Inspection - Respiratory Exam Respiratory Exam: Clear to Auscultation Bilateral, NORMAL BREATHING PATTERN. absent: Rales, Rhonchi, Wheezes - Cardiovascular Exam Cardiovascular Exam: REGULAR RHYTHM, +S1, +S2 - GI/Abdominal Exam GI & Abdominal Exam: Distended, Normal Bowel Sounds, Soft - Extremities Exam Extremities exam: Positive for: full ROM, normal inspection. Negative for: pedal edema, tenderness - Neurological Exam Neurological exam: Alert, CN II-XII Intact, Oriented x3 - Expanded Neurological Exam Expanded Cranial nerves: EOM's Intact: Normal, Facial Palsey w/Forehead Movement: Normal, Facial Palsey w/o Forehead Movement: Normal, Facial Sensation: Normal, Tongue D eviation: Normal Sensory exam: Lower Extremity Light Touch: Normal, Upper Extremity Light Touch: Normal Neuro motor strength exam: Left Upper Extremity: 4, Right Upper Extremity: 5, Left Lower Extremity: 5, Right Lower Extremity: 5 - Psychiatric Exam Psychiatric exam: Normal Affect, Normal Mood - Skin Skin Exam: Dry, Intact, Normal Color, Warm Results - Vital Signs Recent Vital Signs: Last Vital Signs Temp 98.3 F 12/17/18 14:00 Pulse 71 12/17/18 15:22 Resp 14 12/17/18 15:22 BP 108/60 12/17/18 15:22 Pulse Ox 99 12/17/18 15:00 - Labs Result Diagrams: 12/17/18 09:32 12/17/18 09:32 Labs: Laboratory Results - last 24 hr 12/17/18 12/17/18 12/17/18 09:26 09:28 09:32 WBC 3.9 L RBC 4.70 Hgb 14.6 Hct 43.7 MCV 93.0 MCH 31.0 MCHC 33.3 RDW 13.6 Plt Count 241 MPV 8.6 Neut % (Auto) 30.3 L Lymph % (Auto) 51.7 H [place] % (Auto) 13.9 H Eos % (Auto) 3.2 Baso % (Auto) 0.9 Neut # (Auto) 1.2 L Lymph # (Auto) 2.0 [place] # (Auto) 0.5 Eos # (Auto) 0.1 Baso # (Auto) 0.0 PT INR APTT Sodium Potassium Chloride Carbon Dioxide Anion Gap BUN Creatinine Est GFR ( Amer) Est GFR (Non-Af Amer) POC Glucose (mg/dL) 103 Random Glucose Hemoglobin A1c 5.7 Calcium Total Bilirubin AST ALT Alkaline Phosphatase Troponin I Total Protein Albumin Globulin Albumin/Globulin Ratio Triglycerides Cholesterol LDL Cholesterol Direct HDL Cholesterol Blood Type Antibody Screen 12/17/18 12/17/18 12/17/18 09:32 09:32 09:53 WBC RBC Hgb Hct MCV MCH MCHC RDW Plt Count MPV Neut % (Auto) Lymph % (Auto) [place] % (Auto) Eos % (Auto) Baso % (Auto) Neut # (Auto) Lymph # (Auto) [place] # (Auto) Eos # (Auto) Baso # (Auto) PT 11.2 INR 1.0 APTT 30 Sodium 140 Potassium 3.7 Chloride 103 Carbon Dioxide 29 Anion Gap 12 BUN 21 H Creatinine 1.5 Est GFR ( Amer) 56 Est GFR (Non-Af Amer) 47 POC Glucose (mg/dL) Random Glucose 113 H D Hemoglobin A1c Calcium 9.6 Total Bilirubin 0.7 AST 29 ALT 10 L D Alkaline Phosphatase 97 Troponin I < 0.0120 Total Protein 8.1 Albumin 4.8 Globulin 3.3 Albumin/Globulin Ratio 1.4 Triglycerides 97 Cholesterol 162 LDL Cholesterol Direct 86 HDL Cholesterol 52 Blood Type O POSITIVE Antibody Screen Negative Assessment & Plan - Assessment and Plan (Free Text) Assessment: 68 year old male with pmhx of asthma, CAD, HTN, came to ED for weakness whole body and right side droop of face, slurred speech, code stroke called for possible CVA, currently asymptomatic, CT head and CTA unremarkable Plan: Neuro AA0x3 CT head - No evidence of acute infarct. No intracranial hemorrhage. Minimal chronic white matter ischemic change CTA head and neck - 1. Limited bilateral carotid bulbar atherosclerosis without significant stenosis in the bilateral common or internal carotid arteries identified. 2. Bilateral cavernous partially calcified atherosclerosis with a least moderate stenosis at the right but no significant left-sided stenosis. Bilateral ICAs appear patent through their bifurcations. 3. No definite intracranial or extracranial arterial occlusion appreciable. Code stroke - NIHHSS score 0 MRA - no interval stenosis or occlusions close monitoring Neuro Q1 integrilin f/u Dr Medrano and neuro order fulfillment specialist NS 150cc/hr repeat Head w/o contrast in am Cardio Monitor Hx of Htn : start home meds: norvasc, metoprolol, losartan/HCTZ Pulm O2 NC Duonebs PRN Singulair GI HHD pepcid ppx Pepcid no DVT ppx due to possible bleeding, SCDS PT/OT Mulitvitamins Plan discussed with Dr Zane Mendoza, PGY-1 - Date & Time Date: 12/17/18 Time: 18:00
[2018-12-17 21:50] LABS: BLOOD UREA NITROGEN 15 mg/dL (9-20); CALCIUM 8.4 mg/dl (8.6-10.4); GFR NON-AFRICAN AMERICAN > 60
[2018-12-18 06:14] LABS: BASO % 0.6 % (0.0-2.0); EOS # 0.1 K/uL (0.0-0.7); EOS % 1.9 % (0.0-4.0); LYMPH # 1.8 K/uL (1.0-4.3); LYMPH % 29.7 % (20.0-40.0); MEAN CELL VOLUME 93.5 fL (80.0-94.0); MEAN CORPUSCULAR HEMOGLOBIN 30.7 pg (27.0-31.0); MEAN CORPUSCULAR HGB CONC 32.9 g/dL (33.0-37.0); MEAN PLATELET VOLUME 9.2 fL (7.2-11.7); MONO # 0.9 K/uL (0.0-0.8); MONO % 14.8 % (0.0-10.0); NEUT # 3.1 K/uL (1.8-7.0); NRBC % 0.2 % (0.0-2.0); RBC 4.23 Mil/uL (4.40-5.90); RED CELL DISTRIBUTION WIDTH 13.1 % (11.5-14.5); WHITE BLOOD COUNT 5.9 K/uL (4.8-10.8)
--- NOTE | 2018-12-18 06:36 | HP ---
HISTORY OF PRESENT ILLNESS: A 68-year-old male chief complaint slurred speech. The patient came to the ER. In the ER, they noted episode of slurred speech. The patient was advised admission to the hospital. The patient ____ hypertension. PHYSICAL EXAMINATION: GENERAL: The patient is awake, alert, and oriented. VITAL SIGNS: Temperature 98, pulse 90. HEENT: Within normal limits. NECK: Supple. CHEST: Symmetrical. HEART: Regular. ABDOMEN: Soft. EXTREMITIES: No edema. ASSESSMENT AND PLAN: The patient suffers from transient ischemic attack . The patient ICU admission. Neurology consultation with stat MRI of the brain which is being done now. Hi Hopper MD
[2018-12-18 07:12] LABS: ALB/GLOB RATIO 1.2 (1.0-2.1); ALBUMIN 3.7 g/dL (3.5-5.0); ALT/SGPT < 6 U/L (21-72); AST/SGOT 36 U/L (17-59); BLOOD UREA NITROGEN 13 mg/dL (9-20); CALCIUM 8.7 mg/dl (8.6-10.4); GFR NON-AFRICAN AMERICAN > 60
[2018-12-18] MEDS: Multiple Vitamins Tab PO SCH (09:15)
[2018-12-18] MEDS: Metoprolol Succinate 25 mg XL Tab PO SCH (10:30)
[2018-12-18] MEDS ORDERED: Eptifibatide 0.75 mg/ml 75 MG/100 ML BOTTLE IV SCH (11:00)
[2018-12-18] MEDS: Eptifibatide 0.75 mg/ml 75 MG/100 ML BOTTLE IV SCH (11:21)
[2018-12-18] MEDS: Sodium Chloride 0.9% 1,000 ML IV SCH (11:27)
--- NOTE | 2018-12-18 11:42 | CT ---
Date of service: 12/18/2018 PROCEDURE: CT HEAD WITHOUT CONTRAST. HISTORY: Code stroke COMPARISON: 12/17/2018 TECHNIQUE: Axial computed tomography images were obtained through the head/brain without intravenous contrast. Radiation dose: Total exam DLP = 1063.35 mGy-cm. This CT exam was performed using one or more of the following dose reduction techniques: Automated exposure control, adjustment of the mA and/or kV according to patient size, and/or use of iterative reconstruction technique. FINDINGS: HEMORRHAGE: No intracranial hemorrhage. BRAIN: No mass effect or edema. No evidence of acute infarct. Minimal periventricular white matter lucency consistent with chronic microvascular ischemic change. Minimal diffuse atrophy. VENTRICLES: Unremarkable. No hydrocephalus. CALVARIUM: Unremarkable. PARANASAL SINUSES: Unremarkable as visualized. No significant inflammatory changes. MASTOID AIR CELLS: Unremarkable as visualized. No inflammatory changes. OTHER FINDINGS: None. IMPRESSION: No evidence of acute infarct. No intracranial mass or hemorrhage. Mild age-appropriate atrophy and chronic white matter ischemic change. No change from 12/17/2018.
[2018-12-18] MEDS: Albuterol-Ipratrop 3 mg / 0.5 (3 ml) UD INH PRN ×2 (13:45→20:19)
[2018-12-18] MEDS: Budesonide 0.5 mg/2 ml Inhal Susp UD INH SCH ×2 (13:45→20:19)
--- NOTE | 2018-12-18 16:29 | CP.PCM.CON ---
History of Present Illness - History of Present Illness History of Present Illness: is a 68 year old male right hand dominant with PmHx as listed below. Arrived to ED as a code stroke with right upper and lower extremity weakness and change in speech described as expressive aphasia. CTA head/neck showed left M1 occlusion. Review of Systems - Constitutional Constitutional: As Per HPI - Neurological Neurological: Other Additional comments: General: awake, sitting up in bed Mental Status: alert and oriented to person, place and time, follows commands, regards on both sides Speech: no dysarthria, speech fluent Cranial Nerves: PERRL, BTT bilaterally,EOMI,no facial asymmetry, tongue midline Motor: 5/5 left and right upper and lower extremities Sensory: intact bilaterally Coordination: [id number] no dysmetria Gait: deferred Past Patient History - Infectious Disease Hx of Infectious Diseases: None - Past Medical History & Family History Past Medical History?: Yes - Past Social History Smoking Status: Current Some Days Smoker - CARDIAC Hx Hypertension: Yes - PULMONARY Hx Chronic Obstructive Pulmonary Disease (COPD): Yes - NEUROLOGICAL Hx Neurological Disorder: No - HEENT Hx HEENT Problems: Yes Other/Comment: WEARS GLASSES - RENAL Hx Chronic Kidney Disease: No - ENDOCRINE/METABOLIC Hx Endocrine Disorders: No - HEMATOLOGICAL/ONCOLOGICAL Hx Blood Disorders: No Hx Blood Transfusions: No - INTEGUMENTARY Hx Dermatological Problems: No - MUSCULOSKELETAL/RHEUMATOLOGICAL Hx Falls: No - GASTROINTESTINAL Hx Gastrointestinal Disorders: No - GENITOURINARY/GYNECOLOGICAL Hx Genitourinary Disorders: No - PSYCHIATRIC Hx Substance Use: No - SURGICAL HISTORY Hx Coronary Stent: Yes (X2) - ANESTHESIA Hx Anesthesia: Yes Hx Anesthesia Reactions: No Hx Malignant Hyperthermia: No Meds Allergies/Adverse Reactions: Allergies Allergy/AdvReac Type Severity Reaction Status Date / Time No Known Allergies Allergy Verified 12/17/18 09:30 - Medications Medications: Current Medications Albuterol/Ipratropium (Duoneb 3 Mg/0.5 Mg (3 Ml) Ud) 3 ml INH RQ6 PRN PRN Reason: Shortness of Breath Last Admin: 12/18/18 13:45 Dose: 3 ml Amlodipine Besylate (Norvasc) 10 mg PO DAILY [facility] Last Admin: 12/18/18 10:30 Dose: Not Given Aspirin (Aspirin Chewable) 81 mg PO DAILY [facility] Budesonide (Pulmicort Respules) 0.5 mg INH RQ12 [facility] Last Admin: 12/18/18 13:45 Dose: 0.5 mg Clopidogrel Bisulfate (Plavix) 75 mg PO DAILY [facility] Docusate Sodium (Colace) 100 mg PO BID [facility] Famotidine (Pepcid) 20 mg IVP Q12 [facility] Last Admin: 12/18/18 09:15 Dose: 20 mg Hydrochlorothiazide (Hydrodiuril) 25 mg PO DAILY [facility] Last Admin: 12/18/18 10:30 Dose: Not Given Sodium Chloride (Sodium Chloride 0.9%) 1,000 mls @ 75 mls/hr IV .[id number] [facility] Last Admin: 12/18/18 11:27 Dose: Not Given Losartan Potassium (Cozaar) 100 mg PO DAILY [facility] Last Admin: 12/18/18 10:30 Dose: Not Given Metoprolol Succinate (Toprol Xl) 25 mg PO DAILY [facility] Last Admin: 12/18/18 10:30 Dose: Not Given Montelukast Sodium (Singulair) 10 mg PO DAILY [facility] Last Admin: 12/18/18 09:15 Dose: 10 mg Multivitamins (Hexavitamin) 1 tab PO DAILY [facility] Last Admin: 12/18/18 09:15 Dose: 1 tab Rosuvastatin Calcium (Crestor) [address] [facility] Physical Exam - Head Exam Head Exam: ATRAUMATIC, NORMAL INSPECTION - Eye Exam Eye Exam: EOMI, PERRL - Neck Exam Neck exam: Positive for: Full Rom - Respiratory Exam Respiratory Exam: Clear to Auscultation Bilateral - Neurological Exam Neurological exam: CN II-XII Intact, Oriented x3, Reflexes Normal Results - Vital Signs Recent Vital Signs: Last Vital Signs Temp 98.4 F 12/18/18 12:00 Pulse 70 12/18/18 15:00 Resp 17 12/18/18 15:00 BP 138/84 12/18/18 14:22 Pulse Ox 99 12/18/18 15:00 - Labs Result Diagrams: 12/18/18 06:08 12/18/18 06:08 Labs: Laboratory Results - last 24 hr 12/17/18 12/17/18 12/18/18 21:14 21:34 06:08 WBC 5.9 D RBC 4.23 L Hgb 13.0 Hct 39.6 MCV 93.5 MCH 30.7 MCHC 32.9 L RDW 13.1 Plt Count 182 MPV 9.2 Neut % (Auto) 53.0 Lymph % (Auto) 29.7 Divide % (Auto) 14.8 H Eos % (Auto) 1.9 Baso % (Auto) 0.6 Neut # (Auto) 3.1 Lymph # (Auto) 1.8 Divide # (Auto) 0.9 H Eos # (Auto) 0.1 Baso # (Auto) 0.0 Sodium 138 Potassium 3.5 L Chloride 107 Carbon Dioxide 25 Anion Gap 9 L BUN 15 Creatinine 0.9 Est GFR ( Amer) > 60 Est GFR (Non-Af Amer) > 60 POC Glucose (mg/dL) 355 H Random Glucose 125 H Calcium 8.4 L Phosphorus Magnesium Total Bilirubin AST ALT Alkaline Phosphatase Total Protein Albumin Globulin Albumin/Globulin Ratio 12/18/18 12/18/18 12/18/18 06:08 07:28 11:48 WBC RBC Hgb Hct MCV MCH MCHC RDW Plt Count MPV Neut % (Auto) Lymph % (Auto) Divide % (Auto) Eos % (Auto) Baso % (Auto) Neut # (Auto) Lymph # (Auto) Divide # (Auto) Eos # (Auto) Baso # (Auto) Sodium 137 Potassium 4.1 Chloride 106 Carbon Dioxide 22 Anion Gap 13 BUN 13 Creatinine 0.9 Est GFR ( Amer) > 60 Est GFR (Non-Af Amer) > 60 POC Glucose (mg/dL) 81 126 H Random Glucose 73 L D Calcium 8.7 Phosphorus 2.6 Magnesium 1.7 Total Bilirubin 0.9 AST 36 ALT < 6 L D Alkaline Phosphatase 79 Total Protein 6.6 Albumin 3.7 Globulin 2.9 Albumin/Globulin Ratio 1.2 Assessment & Plan - Assessment and Plan (Free Text) Assessment: 68 year old male patient with left M1 occlusion on CTA. Head wCT today with no changes noted. Neurological assessment normal,with a slight drift noted via right upper extremity. Carotid duplex completed and preliminary result with no significant narrowing noted. Plan: Plan 1-agree with EEG monotoring 2-continue neuro checks per ICU protocol 3-If I can be of further assistance please contact me Critical Care This patient suffers from a critical illness, acute M1 occlusion; 45 minutes were spent in the neurological evaluation and treatment. - Date & Time Date: 12/18/18 Time: 16:45
--- NOTE | 2018-12-18 16:34 | CP.PCM.PN ---
<Ismael Blum - Last Filed: 12/18/18 16:41> Subjective - Date & Time of Evaluation Date of Evaluation: 12/18/18 Time of Evaluation: 16:31 - Subjective Subjective: Neurology Progress Note: Patient seen and assessed at bedside. Patient noted to have multiple episodes of dysphagia intermittently overnight. Patient reports that he remembers these episodes and denies any headache, aura, changes in his vision, confusion or memory loss during the episodes. He denies any other complaints at this time and 12 point ROS unremarkable except what is written above. Objective - Vital Signs/Intake and Output Vital Signs (last 24 hours): Temp Pulse Resp BP Pulse Ox 98.4 F 70 17 138/84 99 12/18/18 12:00 12/18/18 15:00 12/18/18 15:00 12/18/18 14:22 12/18/18 15:00 Intake and Output: 12/18/18 12/18/18 06:59 18:59 Intake Total 1549.8 1242.4 Output Total 450 Balance 1549.8 792.4 - Medications Medications: Current Medications Albuterol/Ipratropium (Duoneb 3 Mg/0.5 Mg (3 Ml) Ud) 3 ml INH RQ6 PRN PRN Reason: Shortness of Breath Last Admin: 12/18/18 13:45 Dose: 3 ml Amlodipine Besylate (Norvasc) 10 mg PO DAILY [facility] Last Admin: 12/18/18 10:30 Dose: Not Given Aspirin (Aspirin Chewable) 81 mg PO DAILY [facility] Budesonide (Pulmicort Respules) 0.5 mg INH RQ12 [facility] Last Admin: 12/18/18 13:45 Dose: 0.5 mg Clopidogrel Bisulfate (Plavix) 75 mg PO DAILY [facility] Docusate Sodium (Colace) 100 mg PO BID [facility] Famotidine (Pepcid) 20 mg IVP Q12 [facility] Last Admin: 12/18/18 09:15 Dose: 20 mg Hydrochlorothiazide (Hydrodiuril) 25 mg PO DAILY [facility] Last Admin: 12/18/18 10:30 Dose: Not Given Sodium Chloride (Sodium Chloride 0.9%) 1,000 mls @ 75 mls/hr IV .[id number] [facility] Last Admin: 12/18/18 11:27 Dose: Not Given Losartan Potassium (Cozaar) 100 mg PO DAILY [facility] Last Admin: 12/18/18 10:30 Dose: Not Given Metoprolol Succinate (Toprol Xl) 25 mg PO DAILY [facility] Last Admin: 12/18/18 10:30 Dose: Not Given Montelukast Sodium (Singulair) 10 mg PO DAILY [facility] Last Admin: 12/18/18 09:15 Dose: 10 mg Multivitamins (Hexavitamin) 1 tab PO DAILY [facility] Last Admin: 12/18/18 09:15 Dose: 1 tab Rosuvastatin Calcium (Crestor) 5 mg PO HS [facility] - Labs Labs: 12/18/18 06:08 12/18/18 06:08 PT 11.2 SECONDS (9.7-12.2) 12/17/18 09:32 INR 1.0 12/17/18 09:32 APTT 30 SECONDS (21-34) 12/17/18 09:32 - Constitutional Appears: Non-toxic, No Acute Distress - Head Exam Head Exam: ATRAUMATIC, NORMOCEPHALIC - Eye Exam Eye Exam: EOMI, Normal appearance, PERRL. absent: Conjunctival injection, Nystagmus, Periorbital swelling, Periorbital tenderness, Scleral icterus Pupil Exam: NORMAL ACCOMODATION, PERRL - ENT Exam ENT Exam: Mucous Membranes Moist, Normal Exam - Neck Exam Neck Exam: Full ROM, Normal Inspection. absent: Lymphadenopathy, Meningismus, Tenderness, Thyromegaly - Respiratory Exam Respiratory Exam: Clear to Ausculation Bilateral, NORMAL BREATHING PATTERN - Cardiovascular Exam Cardiovascular Exam: REGULAR RHYTHM - GI/Abdominal Exam GI & Abdominal Exam: Soft, Normal Bowel Sounds. absent: Tenderness - Extremities Exam Extremities Exam: Full ROM - Neurological Exam Neurological Exam: Alert, Awake, CN II-XII Intact, Normal Gait, Oriented x3, Reflexes Normal Neuro motor strength exam: Left Upper Extremity: 5, Right Upper Extremity: 5, Left Lower Extremity: 5, Right Lower Extremity: 5 Additional comments: No expressive or receptive aphasia appreciated on exam - Psychiatric Exam Psychiatric exam: Normal Affect, Normal Mood - Skin Skin Exam: Dry, Intact, Normal Color, Warm Assessment and Plan - Assessment and Plan (Free Text) Assessment: 68 year old male with a past medical history significant for CAD s/p two ABIODUN, HTN and COPD who presented as a code stroke with expressive aphasia and upper and lower extremity weakness. Plan: -MRI Brain negative for any acute infarctions -CTA Head/Neck showed left M1 occlusion -Start daily low dose ASA and Plavix -Video EEG to r/o seizures -Further recommendations as per Dr. Medrano Patient seen and case discussed with attending, Dr. Medrano. Ismael Blum PGY2 <Harvey Medrano - Last Filed: 12/18/18 17:27> Objective - Vital Signs/Intake and Output Vital Signs (last 24 hours): Temp Pulse Resp BP Pulse Ox 98.6 F 68 10 L 123/77 100 12/18/18 16:00 12/18/18 17:00 12/18/18 17:00 12/18/18 16:21 12/18/18 17:00 Intake and Output: 12/18/18 12/18/18 06:59 18:59 Intake Total 1549.8 1592.4 Output Total 650 Balance 1549.8 942.4 - Medications Medications: Current Medications Albuterol/Ipratropium (Duoneb 3 Mg/0.5 Mg (3 Ml) Ud) 3 ml INH RQ6 PRN PRN Reason: Shortness of Breath Last Admin: 12/18/18 13:45 Dose: 3 ml Amlodipine Besylate (Norvasc) 10 mg PO DAILY [facility] Last Admin: 12/18/18 10:30 Dose: Not Given Aspirin (Aspirin Chewable) 81 mg PO DAILY [facility] Budesonide (Pulmicort Respules) 0.5 mg INH RQ12 [facility] Last Admin: 12/18/18 13:45 Dose: 0.5 mg Clopidogrel Bisulfate (Plavix) 75 mg PO DAILY [facility] Docusate Sodium (Colace) 100 mg PO BID [facility] Famotidine (Pepcid) 20 mg IVP Q12 [facility] Last Admin: 12/18/18 09:15 Dose: 20 mg Hydrochlorothiazide (Hydrodiuril) 25 mg PO DAILY [facility] Last Admin: 12/18/18 10:30 Dose: Not Given Losartan Potassium (Cozaar) 100 mg PO DAILY [facility] Last Admin: 12/18/18 10:30 Dose: Not Given Metoprolol Succinate (Toprol Xl) 25 mg PO DAILY [facility] Last Admin: 12/18/18 10:30 Dose: Not Given Montelukast Sodium (Singulair) 10 mg PO DAILY [facility] Last Admin: 12/18/18 09:15 Dose: 10 mg Multivitamins (Hexavitamin) 1 tab PO DAILY [facility] Last Admin: 12/18/18 09:15 Dose: 1 tab Rosuvastatin Calcium (Crestor) 5 mg PO HS [facility] - Labs Labs: 12/18/18 06:08 12/18/18 06:08 PT 11.2 SECONDS (9.7-12.2) 12/17/18 09:32 INR 1.0 12/17/18 09:32 APTT 30 SECONDS (21-34) 12/17/18 09:32 Assessment and Plan - Assessment and Plan (Free Text) Plan: I examined the patient independently and agree with the assessment and plan. Dr. Medrano Neurology
--- NOTE | 2018-12-18 17:31 | CP.CCUPN ---
<John Holder - Last Filed: 12/18/18 17:45> CCU Objective - Vital Signs / Intake & Output Vital Signs (Last 4 hours): Vital Signs Temp Pulse Resp BP Pulse Ox 12/18/18 17:00 68 10 L 100 12/18/18 16:21 70 13 123/77 100 12/18/18 16:00 98.6 F 68 22 100 12/18/18 15:22 79 18 118/74 100 12/18/18 15:00 70 17 99 12/18/18 14:22 101 H 17 138/84 100 12/18/18 14:00 59 L 20 99 12/18/18 13:46 96 H Intake and Output (Last 8hrs): Intake & Output 12/18/18 12/18/18 12/18/18 06:59 14:59 22:59 Intake Total 693.2 917.4 675 Output Total 450 200 Balance 693.2 467.4 475 Weight 136 lb 0.2 oz Intake: Intake, IV Amount 573.2 617.4 225 Left Antecubital 550 600 225 side port left AC 23.2 17.4 0 Oral 120 300 450 Output: Urine 450 200 Urine, Voided 450 200 Other: # Voids Urine, Voided 0 0 1 # Bowel Movements 0 0 0 - Medications Active Medications: Active Medications Generic Name Dose Route Start Last Admin Trade Name Freq PRN Reason Stop Dose Admin Albuterol/Ipratropium 3 ml 12/17/18 20:00 12/18/18 13:45 Duoneb 3 Mg/0.5 Mg (3 Ml) Ud INH 3 ml RQ6 PRN Administration Shortness of Breath Amlodipine Besylate 10 mg 12/18/18 10:00 12/18/18 10:30 Norvasc PO Not Given DAILY [facility] Aspirin 81 mg 12/19/18 10:00 Aspirin Chewable PO DAILY [facility] Budesonide 0.5 mg 12/18/18 11:00 12/18/18 13:45 Pulmicort Respules INH 0.5 mg RQ12 DARSHAN Administration Clopidogrel Bisulfate 75 mg 12/19/18 10:00 Plavix PO DAILY [facility] Docusate Sodium 100 mg 12/18/18 18:00 Colace PO BID [facility] Famotidine 20 mg 12/17/18 22:00 12/18/18 09:15 Pepcid IVP 20 mg Q12 DARSHAN Administration Hydrochlorothiazide 25 mg 12/18/18 10:00 12/18/18 10:30 Hydrodiuril PO Not Given DAILY DARSHAN Losartan Potassium 100 mg 12/18/18 10:00 12/18/18 10:30 Cozaar PO Not Given DAILY DARSHAN Metoprolol Succinate 25 mg 12/18/18 10:00 12/18/18 10:30 Toprol Xl PO Not Given DAILY DARSHAN Montelukast Sodium 10 mg 12/18/18 10:00 12/18/18 09:15 Singulair PO 10 mg DAILY DARSHAN Administration Multivitamins 1 tab 12/18/18 10:00 12/18/18 09:15 Hexavitamin PO 1 tab DAILY DARSHAN Administration Rosuvastatin Calcium 5 mg 12/18/18 22:00 Crestor PO HS DARSHAN - Patient Studies Lab Studies: Lab Studies 12/18/18 12/18/18 12/18/18 Range/Units 16:31 11:48 07:28 WBC (4.8-10.8) K/uL RBC (4.40-5.90) Mil/uL Hgb (12.0-18.0) g/dL Hct (35.0-51.0) % MCV (80.0-94.0) fL MCH (27.0-31.0) pg MCHC (33.0-37.0) g/dL RDW (11.5-14.5) % Plt Count (130-400) K/uL MPV (7.2-11.7) fL Neut % (Auto) (50.0-75.0) % Lymph % (Auto) (20.0-40.0) % [place] % (Auto) (0.0-10.0) % Eos % (Auto) (0.0-4.0) % Baso % (Auto) (0.0-2.0) % Neut # (Auto) (1.8-7.0) K/uL Lymph # (Auto) (1.0-4.3) K/uL [place] # (Auto) (0.0-0.8) K/uL Eos # (Auto) (0.0-0.7) K/uL Baso # (Auto) (0.0-0.2) K/uL Sodium (132-148) mmol/L Potassium (3.6-5.2) mmol/L Chloride (98-107) mmol/L Carbon Dioxide (22-30) mmol/L Anion Gap (10-20) BUN (9-20) mg/dL Creatinine (0.8-1.5) mg/dL Est GFR ( Amer) Est GFR (Non-Af Amer) POC Glucose (mg/dL) 117 H 126 H 81 (65-110) mg/dL Random Glucose (75-110) mg/dL Calcium (8.6-10.4) mg/dl Phosphorus (2.5-4.5) mg/dL Magnesium (1.6-2.3) mg/dL Total Bilirubin (0.2-1.3) mg/dL AST (17-59) U/L ALT (21-72) U/L Alkaline Phosphatase (38-126) U/L Total Protein (6.3-8.3) g/dL Albumin (3.5-5.0) g/dL Globulin (2.2-3.9) gm/dL Albumin/Globulin Ratio (1.0-2.1) 12/18/18 12/18/18 12/17/18 Range/Units 06:08 06:08 21:34 WBC 5.9 D (4.8-10.8) K/uL RBC 4.23 L (4.40-5.90) Mil/uL Hgb 13.0 (12.0-18.0) g/dL Hct 39.6 (35.0-51.0) % MCV 93.5 (80.0-94.0) fL MCH 30.7 (27.0-31.0) pg MCHC 32.9 L (33.0-37.0) g/dL RDW 13.1 (11.5-14.5) % Plt Count 182 (130-400) K/uL MPV 9.2 (7.2-11.7) fL Neut % (Auto) 53.0 (50.0-75.0) % Lymph % (Auto) 29.7 (20.0-40.0) % [place] % (Auto) 14.8 H (0.0-10.0) % Eos % (Auto) 1.9 (0.0-4.0) % Baso % (Auto) 0.6 (0.0-2.0) % Neut # (Auto) 3.1 (1.8-7.0) K/uL Lymph # (Auto) 1.8 (1.0-4.3) K/uL [place] # (Auto) 0.9 H (0.0-0.8) K/uL Eos # (Auto) 0.1 (0.0-0.7) K/uL Baso # (Auto) 0.0 (0.0-0.2) K/uL Sodium 137 138 (132-148) mmol/L Potassium 4.1 3.5 L (3.6-5.2) mmol/L Chloride 106 107 (98-107) mmol/L Carbon Dioxide 22 25 (22-30) mmol/L Anion Gap 13 9 L (10-20) BUN 13 15 (9-20) mg/dL Creatinine 0.9 0.9 (0.8-1.5) mg/dL Est GFR ( Amer) > 60 > 60 Est GFR (Non-Af Amer) > 60 > 60 POC Glucose (mg/dL) (65-110) mg/dL Random Glucose 73 L D 125 H (75-110) mg/dL Calcium 8.7 8.4 L (8.6-10.4) mg/dl Phosphorus 2.6 (2.5-4.5) mg/dL Magnesium 1.7 (1.6-2.3) mg/dL Total Bilirubin 0.9 (0.2-1.3) mg/dL AST 36 (17-59) U/L ALT < 6 L D (21-72) U/L Alkaline Phosphatase 79 (38-126) U/L Total Protein 6.6 (6.3-8.3) g/dL Albumin 3.7 (3.5-5.0) g/dL Globulin 2.9 (2.2-3.9) gm/dL Albumin/Globulin Ratio 1.2 (1.0-2.1) 12/17/18 Range/Units 21:14 WBC (4.8-10.8) K/uL RBC (4.40-5.90) Mil/uL Hgb (12.0-18.0) g/dL Hct (35.0-51.0) % MCV (80.0-94.0) fL MCH (27.0-31.0) pg MCHC (33.0-37.0) g/dL RDW (11.5-14.5) % Plt Count (130-400) K/uL MPV (7.2-11.7) fL Neut % (Auto) (50.0-75.0) % Lymph % (Auto) (20.0-40.0) % [place] % (Auto) (0.0-10.0) % Eos % (Auto) (0.0-4.0) % Baso % (Auto) (0.0-2.0) % Neut # (Auto) (1.8-7.0) K/uL Lymph # (Auto) (1.0-4.3) K/uL [place] # (Auto) (0.0-0.8) K/uL Eos # (Auto) (0.0-0.7) K/uL Baso # (Auto) (0.0-0.2) K/uL Sodium (132-148) mmol/L Potassium (3.6-5.2) mmol/L Chloride (98-107) mmol/L Carbon Dioxide (22-30) mmol/L Anion Gap (10-20) BUN (9-20) mg/dL Creatinine (0.8-1.5) mg/dL Est GFR ( Amer) Est GFR (Non-Af Amer) POC Glucose (mg/dL) 355 H (65-110) mg/dL Random Glucose (75-110) mg/dL Calcium (8.6-10.4) mg/dl Phosphorus (2.5-4.5) mg/dL Magnesium (1.6-2.3) mg/dL Total Bilirubin (0.2-1.3) mg/dL AST (17-59) U/L ALT (21-72) U/L Alkaline Phosphatase (38-126) U/L Total Protein (6.3-8.3) g/dL Albumin (3.5-5.0) g/dL Globulin (2.2-3.9) gm/dL Albumin/Globulin Ratio (1.0-2.1) Laboratory Results - last 24 hr 12/17/18 12/17/18 12/18/18 21:14 21:34 06:08 WBC 5.9 D RBC 4.23 L Hgb 13.0 Hct 39.6 MCV 93.5 MCH 30.7 MCHC 32.9 L RDW 13.1 Plt Count 182 MPV 9.2 Neut % (Auto) 53.0 Lymph % (Auto) 29.7 [place] % (Auto) 14.8 H Eos % (Auto) 1.9 Baso % (Auto) 0.6 Neut # (Auto) 3.1 Lymph # (Auto) 1.8 [place] # (Auto) 0.9 H Eos # (Auto) 0.1 Baso # (Auto) 0.0 Sodium 138 Potassium 3.5 L Chloride 107 Carbon Dioxide 25 Anion Gap 9 L BUN 15 Creatinine 0.9 Est GFR ( Amer) > 60 Est GFR (Non-Af Amer) > 60 POC Glucose (mg/dL) 355 H Random Glucose 125 H Calcium 8.4 L Phosphorus Magnesium Total Bilirubin AST ALT Alkaline Phosphatase Total Protein Albumin Globulin Albumin/Globulin Ratio 12/18/18 12/18/18 12/18/18 06:08 07:28 11:48 WBC RBC Hgb Hct MCV MCH MCHC RDW Plt Count MPV Neut % (Auto) Lymph % (Auto) [place] % (Auto) Eos % (Auto) Baso % (Auto) Neut # (Auto) Lymph # (Auto) [place] # (Auto) Eos # (Auto) Baso # (Auto) Sodium 137 Potassium 4.1 Chloride 106 Carbon Dioxide 22 Anion Gap 13 BUN 13 Creatinine 0.9 Est GFR ( Amer) > 60 Est GFR (Non-Af Amer) > 60 POC Glucose (mg/dL) 81 126 H Random Glucose 73 L D Calcium 8.7 Phosphorus 2.6 Magnesium 1.7 Total Bilirubin 0.9 AST 36 ALT < 6 L D Alkaline Phosphatase 79 Total Protein 6.6 Albumin 3.7 Globulin 2.9 Albumin/Globulin Ratio 1.2 12/18/18 16:31 WBC RBC Hgb Hct MCV MCH MCHC RDW Plt Count MPV Neut % (Auto) Lymph % (Auto) [place] % (Auto) Eos % (Auto) Baso % (Auto) Neut # (Auto) Lymph # (Auto) [place] # (Auto) Eos # (Auto) Baso # (Auto) Sodium Potassium Chloride Carbon Dioxide Anion Gap BUN Creatinine Est GFR ( Amer) Est GFR (Non-Af Amer) POC Glucose (mg/dL) 117 H Random Glucose Calcium Phosphorus Magnesium Total Bilirubin AST ALT Alkaline Phosphatase Total Protein Albumin Globulin Albumin/Globulin Ratio Radiology Impressions: Radiology Impressions Head CT 12/18/18 10:00 IMPRESSION: No evidence of acute infarct. No intracranial mass or hemorrhage. Mild age-appropriate atrophy and chronic white matter ischemic change. No change from 12/17/2018. Critical Care Progress Note - Nutrition Nutrition: Nutrition Category Date Time Status Heart Healthy Diet [DIET] Diets 12/17/18 Dinner Active Attending/Attestation - Attestation I have personally seen and examined this patient.: Yes I have fully participated in the care of the patient.: Yes I have reviewed all pertinent clinical information: Yes Notes (Text): 12/18/18 17:32 I have seen and examined the patient. Medical records, lab studies, and imaging were reviewed by me and a management plan was formulated on multidisciplinary rounds with resident Dr. Mendoza. I agree with their documented assessment and plan. Patient is still having episodes of aphasia, uncertain if this is seizure activity so obtaining EEG. Stopping integrillin drip. Neurointerventional sees M1 occlusion, but MRI does not show any evidence of ischemia on diffusion, and patient's NIHSS score is low so not a candidate for thrombectomy. Obtaining EEG to r/o focal seizures. Critical Care Time 35 minutes. Multi-disciplinary rounds were performed with house staff, nursing, speech therapy, respiratory therapy, pharmacy and nutrition with integrated input from the primary team/attending and other consulting services. The documented time is cumulative and includes review of patient data/exams/labs/chart review and examination of the patient on rounds and throughout the day; time is exclusive of any procedures or teaching time. 12/18/18 17:45 <Ludwig Mendoza - Last Filed: 12/18/18 21:39> CCU Subjective - Physician Review Subjective (Free Text): PGY-1 ICU progress note for Dr Holder service Patient is seen and examined at bedside. Patient states feeling well with no acute events overnight. Patient denies any pain, weakness. negative ROS. Critical Care Time Spent (in minutes): 35 CCU Objective - Vital Signs / Intake & Output Vital Signs (Last 4 hours): Vital Signs Temp Pulse Resp BP Pulse Ox 12/18/18 17:00 68 10 L 100 12/18/18 16:21 70 13 123/77 100 12/18/18 16:00 98.6 F 68 22 100 12/18/18 15:22 79 18 118/74 100 12/18/18 15:00 70 17 99 12/18/18 14:22 101 H 17 138/84 100 12/18/18 14:00 59 L 20 99 12/18/18 13:46 96 H Intake and Output (Last 8hrs): Intake & Output 12/18/18 12/18/18 12/18/18 06:59 14:59 22:59 Intake Total 693.2 917.4 675 Output Total 450 200 Balance 693.2 467.4 475 Weight 136 lb 0.2 oz Intake: Intake, IV Amount 573.2 617.4 225 Left Antecubital 550 600 225 side port left AC 23.2 17.4 0 Oral 120 300 450 Output: Urine 450 200 Urine, Voided 450 200 Other: # Voids Urine, Voided 0 0 1 # Bowel Movements 0 0 0 - Physical Exam Head: Positive for: Atraumatic, Normocephalic Pupils: Positive for: PERRL Extroacular Muscles: Positive for: EOMI Conjunctiva: Positive for: Normal Neck: Positive for: Normal Range of Motion Respiratory/Chest: Positive for: Wheezes (right middle and lower lobes ) Cardiovascular: Positive for: Regular Rate and Rhythm, Normal S1, S2 Abdomen: Positive for: Normal Bowel Sounds Upper Extremity: Positive for: Normal Inspection Lower Extremity: Positive for: Normal Inspection Neurological: Positive for: GCS=15, CN II-XII Intact Skin: Positive for: Warm, Dry, Normal Color Psychiatric: Positive for: Alert, Oriented x 3, Normal Insight, Normal Concentration, Normal Affect, Normal Mood - Medications Active Medications: Active Medications Generic Name Dose Route Start Last Admin Trade Name Freq PRN Reason Stop Dose Admin Albuterol/Ipratropium 3 ml 12/17/18 20:00 12/18/18 13:45 Duoneb 3 Mg/0.5 Mg (3 Ml) Ud INH 3 ml RQ6 PRN Administration Shortness of Breath Amlodipine Besylate 10 mg 12/18/18 10:00 12/18/18 10:30 Norvasc PO Not Given DAILY DARSHAN Aspirin 81 mg 12/19/18 10:00 Aspirin Chewable PO DAILY [facility] Budesonide 0.5 mg 12/18/18 11:00 12/18/18 13:45 Pulmicort Respules INH 0.5 mg RQ12 DARSHAN Administration Clopidogrel Bisulfate 75 mg 12/19/18 10:00 Plavix PO DAILY [facility] Docusate Sodium 100 mg 12/18/18 18:00 Colace PO BID [facility] Famotidine 20 mg 12/17/18 22:00 12/18/18 09:15 Pepcid IVP 20 mg Q12 DARSHAN Administration Hydrochlorothiazide 25 mg 12/18/18 10:00 12/18/18 10:30 Hydrodiuril PO Not Given DAILY [facility] Losartan Potassium 100 mg 12/18/18 10:00 12/18/18 10:30 Cozaar PO Not Given DAILY [facility] Metoprolol Succinate 25 mg 12/18/18 10:00 12/18/18 10:30 Toprol Xl PO Not Given DAILY [facility] Montelukast Sodium 10 mg 12/18/18 10:00 12/18/18 09:15 Singulair PO 10 mg DAILY DARSHAN Administration Multivitamins 1 tab 12/18/18 10:00 12/18/18 09:15 Hexavitamin PO 1 tab DAILY [facility] Administration Rosuvastatin Calcium 5 mg 12/18/18 22:00 Crestor PO HS [facility] - Patient Studies Lab Studies: Lab Studies 12/18/18 12/18/18 12/18/18 Range/Units 16:31 11:48 07:28 WBC (4.8-10.8) K/uL RBC (4.40-5.90) Mil/uL Hgb (12.0-18.0) g/dL Hct (35.0-51.0) % MCV (80.0-94.0) fL MCH (27.0-31.0) pg MCHC (33.0-37.0) g/dL RDW (11.5-14.5) % Plt Count (130-400) K/uL MPV (7.2-11.7) fL Neut % (Auto) (50.0-75.0) % Lymph % (Auto) (20.0-40.0) % [place] % (Auto) (0.0-10.0) % Eos % (Auto) (0.0-4.0) % Baso % (Auto) (0.0-2.0) % Neut # (Auto) (1.8-7.0) K/uL Lymph # (Auto) (1.0-4.3) K/uL [place] # (Auto) (0.0-0.8) K/uL Eos # (Auto) (0.0-0.7) K/uL Baso # (Auto) (0.0-0.2) K/uL Sodium (132-148) mmol/L Potassium (3.6-5.2) mmol/L Chloride (98-107) mmol/L Carbon Dioxide (22-30) mmol/L Anion Gap (10-20) BUN (9-20) mg/dL Creatinine (0.8-1.5) mg/dL Est GFR ( Amer) Est GFR (Non-Af Amer) POC Glucose (mg/dL) 117 H 126 H 81 (65-110) mg/dL Random Glucose (75-110) mg/dL Calcium (8.6-10.4) mg/dl Phosphorus (2.5-4.5) mg/dL Magnesium (1.6-2.3) mg/dL Total Bilirubin (0.2-1.3) mg/dL AST (17-59) U/L ALT (21-72) U/L Alkaline Phosphatase (38-126) U/L Total Protein (6.3-8.3) g/dL Albumin (3.5-5.0) g/dL Globulin (2.2-3.9) gm/dL Albumin/Globulin Ratio (1.0-2.1) 12/18/18 12/18/18 12/17/18 Range/Units 06:08 06:08 21:34 WBC 5.9 D (4.8-10.8) K/uL RBC 4.23 L (4.40-5.90) Mil/uL Hgb 13.0 (12.0-18.0) g/dL Hct 39.6 (35.0-51.0) % MCV 93.5 (80.0-94.0) fL MCH 30.7 (27.0-31.0) pg MCHC 32.9 L (33.0-37.0) g/dL RDW 13.1 (11.5-14.5) % Plt Count 182 (130-400) K/uL MPV 9.2 (7.2-11.7) fL Neut % (Auto) 53.0 (50.0-75.0) % Lymph % (Auto) 29.7 (20.0-40.0) % [place] % (Auto) 14.8 H (0.0-10.0) % Eos % (Auto) 1.9 (0.0-4.0) % Baso % (Auto) 0.6 (0.0-2.0) % Neut # (Auto) 3.1 (1.8-7.0) K/uL Lymph # (Auto) 1.8 (1.0-4.3) K/uL [place] # (Auto) 0.9 H (0.0-0.8) K/uL Eos # (Auto) 0.1 (0.0-0.7) K/uL Baso # (Auto) 0.0 (0.0-0.2) K/uL Sodium 137 138 (132-148) mmol/L Potassium 4.1 3.5 L (3.6-5.2) mmol/L Chloride 106 107 (98-107) mmol/L Carbon Dioxide 22 25 (22-30) mmol/L Anion Gap 13 9 L (10-20) BUN 13 15 (9-20) mg/dL Creatinine 0.9 0.9 (0.8-1.5) mg/dL Est GFR ( Amer) > 60 > 60 Est GFR (Non-Af Amer) > 60 > 60 POC Glucose (mg/dL) (65-110) mg/dL Random Glucose 73 L D 125 H (75-110) mg/dL Calcium 8.7 8.4 L (8.6-10.4) mg/dl Phosphorus 2.6 (2.5-4.5) mg/dL Magnesium 1.7 (1.6-2.3) mg/dL Total Bilirubin 0.9 (0.2-1.3) mg/dL AST 36 (17-59) U/L ALT < 6 L D (21-72) U/L Alkaline Phosphatase 79 (38-126) U/L Total Protein 6.6 (6.3-8.3) g/dL Albumin 3.7 (3.5-5.0) g/dL Globulin 2.9 (2.2-3.9) gm/dL Albumin/Globulin Ratio 1.2 (1.0-2.1) 12/17/18 Range/Units 21:14 WBC (4.8-10.8) K/uL RBC (4.40-5.90) Mil/uL Hgb (12.0-18.0) g/dL Hct (35.0-51.0) % MCV (80.0-94.0) fL MCH (27.0-31.0) pg MCHC (33.0-37.0) g/dL RDW (11.5-14.5) % Plt Count (130-400) K/uL MPV (7.2-11.7) fL Neut % (Auto) (50.0-75.0) % Lymph % (Auto) (20.0-40.0) % [place] % (Auto) (0.0-10.0) % Eos % (Auto) (0.0-4.0) % Baso % (Auto) (0.0-2.0) % Neut # (Auto) (1.8-7.0) K/uL Lymph # (Auto) (1.0-4.3) K/uL [place] # (Auto) (0.0-0.8) K/uL Eos # (Auto) (0.0-0.7) K/uL Baso # (Auto) (0.0-0.2) K/uL Sodium (132-148) mmol/L Potassium (3.6-5.2) mmol/L Chloride (98-107) mmol/L Carbon Dioxide (22-30) mmol/L Anion Gap (10-20) BUN (9-20) mg/dL Creatinine (0.8-1.5) mg/dL Est GFR ( Amer) Est GFR (Non-Af Amer) POC Glucose (mg/dL) 355 H (65-110) mg/dL Random Glucose (75-110) mg/dL Calcium (8.6-10.4) mg/dl Phosphorus (2.5-4.5) mg/dL Magnesium (1.6-2.3) mg/dL Total Bilirubin (0.2-1.3) mg/dL AST (17-59) U/L ALT (21-72) U/L Alkaline Phosphatase (38-126) U/L Total Protein (6.3-8.3) g/dL Albumin (3.5-5.0) g/dL Globulin (2.2-3.9) gm/dL Albumin/Globulin Ratio (1.0-2.1) Laboratory Results - last 24 hr 12/17/18 12/17/18 12/18/18 21:14 21:34 06:08 WBC 5.9 D RBC 4.23 L Hgb 13.0 Hct 39.6 MCV 93.5 MCH 30.7 MCHC 32.9 L RDW 13.1 Plt Count 182 MPV 9.2 Neut % (Auto) 53.0 Lymph % (Auto) 29.7 [place] % (Auto) 14.8 H Eos % (Auto) 1.9 Baso % (Auto) 0.6 Neut # (Auto) 3.1 Lymph # (Auto) 1.8 [place] # (Auto) 0.9 H Eos # (Auto) 0.1 Baso # (Auto) 0.0 Sodium 138 Potassium 3.5 L Chloride 107 Carbon Dioxide 25 Anion Gap 9 L BUN 15 Creatinine 0.9 Est GFR ( Amer) > 60 Est GFR (Non-Af Amer) > 60 POC Glucose (mg/dL) 355 H Random Glucose 125 H Calcium 8.4 L Phosphorus Magnesium Total Bilirubin AST ALT Alkaline Phosphatase Total Protein Albumin Globulin Albumin/Globulin Ratio 12/18/18 12/18/18 12/18/18 06:08 07:28 11:48 WBC RBC Hgb Hct MCV MCH MCHC RDW Plt Count MPV Neut % (Auto) Lymph % (Auto) [place] % (Auto) Eos % (Auto) Baso % (Auto) Neut # (Auto) Lymph # (Auto) [place] # (Auto) Eos # (Auto) Baso # (Auto) Sodium 137 Potassium 4.1 Chloride 106 Carbon Dioxide 22 Anion Gap 13 BUN 13 Creatinine 0.9 Est GFR ( Amer) > 60 Est GFR (Non-Af Amer) > 60 POC Glucose (mg/dL) 81 126 H Random Glucose 73 L D Calcium 8.7 Phosphorus 2.6 Magnesium 1.7 Total Bilirubin 0.9 AST 36 ALT < 6 L D Alkaline Phosphatase 79 Total Protein 6.6 Albumin 3.7 Globulin 2.9 Albumin/Globulin Ratio 1.2 12/18/18 16:31 WBC RBC Hgb Hct MCV MCH MCHC RDW Plt Count MPV Neut % (Auto) Lymph % (Auto) [place] % (Auto) Eos % (Auto) Baso % (Auto) Neut # (Auto) Lymph # (Auto) [place] # (Auto) Eos # (Auto) Baso # (Auto) Sodium Potassium Chloride Carbon Dioxide Anion Gap BUN Creatinine Est GFR ( Amer) Est GFR (Non-Af Amer) POC Glucose (mg/dL) 117 H Random Glucose Calcium Phosphorus Magnesium Total Bilirubin AST ALT Alkaline Phosphatase Total Protein Albumin Globulin Albumin/Globulin Ratio Radiology Impressions: Radiology Impressions Head CT 12/18/18 10:00 IMPRESSION: No evidence of acute infarct. No intracranial mass or hemorrhage. Mild age-appropriate atrophy and chronic white matter ischemic change. No change from 12/17/2018. Fingerstick Blood Sugar Results: 117 Critical Care Progress Note - Nutrition Nutrition: Nutrition Category Date Time Status Heart Healthy Diet [DIET] Diets 12/17/18 Dinner Active Assessment/Plan - Assessment and Plan (Free Text) Assessment: 68 year old male with pmhx of asthma, CAD, HTN, came to ED for weakness whole body and right side droop of face, slurred speech, code stroke called for possible CVA, repeat CTA and carotid dopplers unremarkable, on video EEG as per neuro to r/o focal seizure Plan: Neuro AAOx3 Carotid dopplers - prelim result show no occlusions - f/u official report integrilin D/C repeat Head w/o contrast - no acute changes, no hemorrhage Neuro consult, Dr Medrano - EEG video monitoring 24 hours to rule out seizure activity Neuro [employer] - f/u Cardio Monitor continue home meds: norvasc, metoprolol, losartan, HCTZ Pulm O2 NC Duonebs PRN Pulmicort Singulair GI HHD pepcid ppx Pepcid SCDS PT/OT Mulitvitamins Plan discussed with Dr Glory Mendoza, PGY-1 - Date & Time Date: 12/18/18 Time: 09:00
--- NOTE | 2018-12-19 06:31 | HP ---
HISTORY OF PRESENT ILLNESS: Mr. Hdz is a 68-year-old male with hypertension, high cholesterol, admitted to the hospital with chief complaint of sudden onset of slurred speech, weakness. The patient came to the ER. MRI showed occlusion of the middle cerebral artery and the patient advised admission. The patient is tired. PHYSICAL EXAMINATION: GENERAL: The patient is awake, alert, oriented to time and place. Speech is slightly slurred. VITAL SIGNS: Temperature 98, pulse 90, blood pressure 140/80. HEENT: There is slight facial droop. NECK: Supple. CHEST: Symmetrical. HEART: Regular. ABDOMEN: Soft. EXTREMITIES: No edema. NEUROLOGIC: There is slight facial droop present, otherwise intact. ASSESSMENT AND PLAN: The patient suffers from cerebrovascular accident, hypertension. The patient get bed rest, , Neurology evaluation. Hi Hopper MD
[2018-12-19 06:34] LABS: BASO # 0.1 K/uL (0.0-0.2); BASO % 1.2 % (0.0-2.0); EOS # 0.1 K/uL (0.0-0.7); EOS % 2.6 % (0.0-4.0); HEMOGLOBIN 12.4 g/dL (12.0-18.0); LYMPH # 1.9 K/uL (1.0-4.3); MEAN CELL VOLUME 91.2 fL (80.0-94.0); MEAN CORPUSCULAR HEMOGLOBIN 30.3 pg (27.0-31.0); MEAN CORPUSCULAR HGB CONC 33.2 g/dL (33.0-37.0); MEAN PLATELET VOLUME 8.9 fL (7.2-11.7); MONO # 0.5 K/uL (0.0-0.8); MONO % 12.3 % (0.0-10.0); NEUT # 1.7 K/uL (1.8-7.0); NEUT % 39.9 % (50.0-75.0); NRBC % 0.1 % (0.0-2.0); RBC 4.09 Mil/uL (4.40-5.90); RED CELL DISTRIBUTION WIDTH 13.2 % (11.5-14.5); WHITE BLOOD COUNT 4.4 K/uL (4.8-10.8)
[2018-12-19 06:52] LABS: ALB/GLOB RATIO 1.4 (1.0-2.1); ALBUMIN 3.6 g/dL (3.5-5.0); ALT/SGPT 19 U/L (21-72); AST/SGOT 22 U/L (17-59); BLOOD UREA NITROGEN 12 mg/dL (9-20); CALCIUM 8.7 mg/dl (8.6-10.4); GFR NON-AFRICAN AMERICAN > 60
[2018-12-19] MEDS: Albuterol-Ipratrop 3 mg / 0.5 (3 ml) UD INH PRN ×2 (07:41→22:30)
[2018-12-19] MEDS: Metoprolol Succinate 25 mg XL Tab PO SCH (09:09)
[2018-12-19] MEDS: Multiple Vitamins Tab PO SCH (09:10)
[2018-12-19] MEDS: Budesonide 0.5 mg/2 ml Inhal Susp UD INH SCH ×2 (11:30→22:30)
[2018-12-19] MEDS ORDERED: Sodium Chloride 0.9% 1,000 ML IV ONE (13:40)
--- NOTE | 2018-12-19 14:37 | CP.CCUPN ---
<Ludwig Mendoza - Last Filed: 12/19/18 14:39> CCU Subjective - Physician Review Subjective (Free Text): PGY-1 ICU progress note for Dr Holder service Patient is seen and examined sitting in chair. Patient states on and off symptoms of weakness and slurred speech, noticed right sided face drooping. Symptoms are observe to appear when patient is hypotensive. Patient states needs assistance getting up from chair. Denies any other symptoms, no fever, chills, chest pain, wheezing, sob, n/v/d/c or urinary symptoms. Critical Care Time Spent (in minutes): 35 CCU Objective - Vital Signs / Intake & Output Intake and Output (Last 8hrs): Intake & Output 12/18/18 12/19/18 12/19/18 22:59 06:59 14:59 Intake Total 1135 Output Total 200 600 0 Balance 935 -600 0 Weight 132 lb 8 oz Intake: Intake, IV Amount 225 Left Antecubital 225 side port left AC 0 Oral 910 Output: Urine 200 600 0 Urine, Voided 200 600 0 Other: # Voids Urine, Voided 0 1 # Bowel Movements 0 - Physical Exam Head: Positive for: Atraumatic, Normocephalic Pupils: Positive for: PERRL Extroacular Muscles: Positive for: EOMI Conjunctiva: Positive for: Normal Neck: Positive for: Normal Range of Motion Respiratory/Chest: Positive for: Clear to Auscultation. Negative for: Wheezes, Rales, Rhonchi Cardiovascular: Positive for: Regular Rate and Rhythm, Normal S1, S2 Abdomen: Positive for: Normal Bowel Sounds. Negative for: Tenderness, Distention Upper Extremity: Positive for: Normal Inspection. Negative for: Edema Lower Extremity: Positive for: Normal Inspection. Negative for: Edema Neurological: Positive for: GCS=15, Motor Func Grossly Intact, Normal Sensory Function, Normal Cerebellar Funct, Normal 2Pt Descrimination, Other (right sided face drooping ) Skin: Positive for: Warm, Dry, Normal Color Psychiatric: Positive for: Alert, Oriented x 3, Normal Insight, Normal Concentration, Normal Affect, Normal Mood - Medications Active Medications: Active Medications Generic Name Dose Route Start Last Admin Trade Name Freq PRN Reason Stop Dose Admin Albuterol/Ipratropium 3 ml 12/17/18 20:00 12/19/18 07:41 Duoneb 3 Mg/0.5 Mg (3 Ml) Ud INH 3 ml RQ6 PRN Administration Shortness of Breath Amlodipine Besylate 10 mg 12/18/18 10:00 12/19/18 09:09 Norvasc PO 10 mg DAILY DARSHAN Administration Aspirin 81 mg 12/19/18 10:00 12/19/18 09:09 Aspirin Chewable PO 81 mg DAILY D[facility] Administration Budesonide 0.5 mg 12/18/18 11:00 12/19/18 11:30 Pulmicort Respules INH Not Given RQ12 [facility] Clopidogrel Bisulfate 75 mg 12/19/18 10:00 12/19/18 09:09 Plavix PO 75 mg DAILY DARSHAN Administration Docusate Sodium 100 mg 12/18/18 18:00 12/19/18 09:09 Colace PO 100 mg BID DARSHAN Administration Hydrochlorothiazide 25 mg 12/18/18 10:00 12/19/18 09:09 Hydrodiuril PO 25 mg DAILY DARSHAN Administration Sodium Chloride 1,000 mls @ 1,000 mls/hr 12/19/18 13:40 Sodium Chloride 0.9% IV 12/19/18 14:39 .Q1H ONE Losartan Potassium 100 mg 12/18/18 10:00 12/19/18 09:09 Cozaar PO 100 mg DAILY DAR[facility]AN Administration Metoprolol Succinate 25 mg 12/18/18 10:00 12/19/18 09:09 Toprol Xl PO 25 mg DAILY D[facility]AN Administration Montelukast Sodium 10 mg 12/18/18 10:00 12/19/18 12:39 Singulair PO 10 mg DAILY D[facility]AN Administration Multivitamins 1 tab 12/18/18 10:00 12/19/18 09:10 Hexavitamin PO 1 tab DAILY [facility] Administration Rosuvastatin Calcium 5 mg 12/18/18 22:00 12/18/18 22:25 Crestor PO 5 mg HS DARSHAN Administration - Patient Studies Lab Studies: Microbiology Studies 12/17/18 13:00 MRSA Culture (Admit) - Final Naris MRSA NOT DETECTED Lab Studies 12/19/18 12/19/18 12/19/18 Range/Units 12:00 07:36 06:24 WBC 4.4 L (4.8-10.8) K/uL RBC 4.09 L (4.40-5.90) Mil/uL Hgb 12.4 (12.0-18.0) g/dL Hct 37.3 (35.0-51.0) % MCV 91.2 D (80.0-94.0) fL MCH 30.3 (27.0-31.0) pg MCHC 33.2 (33.0-37.0) g/dL RDW 13.2 (11.5-14.5) % Plt Count 192 (130-400) K/uL MPV 8.9 (7.2-11.7) fL Neut % (Auto) 39.9 L (50.0-75.0) % Lymph % (Auto) 44.0 H (20.0-40.0) % [place] % (Auto) 12.3 H (0.0-10.0) % Eos % (Auto) 2.6 (0.0-4.0) % Baso % (Auto) 1.2 (0.0-2.0) % Neut # (Auto) 1.7 L (1.8-7.0) K/uL Lymph # (Auto) 1.9 (1.0-4.3) K/uL [place] # (Auto) 0.5 (0.0-0.8) K/uL Eos # (Auto) 0.1 (0.0-0.7) K/uL Baso # (Auto) 0.1 (0.0-0.2) K/uL Sodium (132-148) mmol/L Potassium (3.6-5.2) mmol/L Chloride (98-107) mmol/L Carbon Dioxide (22-30) mmol/L Anion Gap (10-20) BUN (9-20) mg/dL Creatinine (0.8-1.5) mg/dL Est GFR ( Amer) Est GFR (Non-Af Amer) POC Glucose (mg/dL) 133 H 100 (65-110) mg/dL Random Glucose (75-110) mg/dL Calcium (8.6-10.4) mg/dl Phosphorus (2.5-4.5) mg/dL Magnesium (1.6-2.3) mg/dL Total Bilirubin (0.2-1.3) mg/dL AST (17-59) U/L ALT (21-72) U/L Alkaline Phosphatase (38-126) U/L Total Protein (6.3-8.3) g/dL Albumin (3.5-5.0) g/dL Globulin (2.2-3.9) gm/dL Albumin/Globulin Ratio (1.0-2.1) 12/19/18 12/18/18 12/18/18 Range/Units 06:21 21:24 16:31 WBC (4.8-10.8) K/uL RBC (4.40-5.90) Mil/uL Hgb (12.0-18.0) g/dL Hct (35.0-51.0) % MCV (80.0-94.0) fL MCH (27.0-31.0) pg MCHC (33.0-37.0) g/dL RDW (11.5-14.5) % Plt Count (130-400) K/uL MPV (7.2-11.7) fL Neut % (Auto) (50.0-75.0) % Lymph % (Auto) (20.0-40.0) % [place] % (Auto) (0.0-10.0) % Eos % (Auto) (0.0-4.0) % Baso % (Auto) (0.0-2.0) % Neut # (Auto) (1.8-7.0) K/uL Lymph # (Auto) (1.0-4.3) K/uL [place] # (Auto) (0.0-0.8) K/uL Eos # (Auto) (0.0-0.7) K/uL Baso # (Auto) (0.0-0.2) K/uL Sodium 135 (132-148) mmol/L Potassium 3.7 (3.6-5.2) mmol/L Chloride 101 (98-107) mmol/L Carbon Dioxide 28 (22-30) mmol/L Anion Gap 11 (10-20) BUN 12 (9-20) mg/dL Creatinine 0.9 (0.8-1.5) mg/dL Est GFR ( Amer) > 60 Est GFR (Non-Af Amer) > 60 POC Glucose (mg/dL) 112 H 117 H (65-110) mg/dL Random Glucose 83 (75-110) mg/dL Calcium 8.7 (8.6-10.4) mg/dl Phosphorus 3.2 (2.5-4.5) mg/dL Magnesium 1.7 (1.6-2.3) mg/dL Total Bilirubin 0.6 (0.2-1.3) mg/dL AST 22 (17-59) U/L ALT 19 L D (21-72) U/L Alkaline Phosphatase 77 (38-126) U/L Total Protein 6.3 (6.3-8.3) g/dL Albumin 3.6 (3.5-5.0) g/dL Globulin 2.7 (2.2-3.9) gm/dL Albumin/Globulin Ratio 1.4 (1.0-2.1) Laboratory Results - last 24 hr 12/18/18 12/18/18 12/19/18 16:31 21:24 06:21 WBC RBC Hgb Hct MCV MCH MCHC RDW Plt Count MPV Neut % (Auto) Lymph % (Auto) [place] % (Auto) Eos % (Auto) Baso % (Auto) Neut # (Auto) Lymph # (Auto) [place] # (Auto) Eos # (Auto) Baso # (Auto) Sodium 135 Potassium 3.7 Chloride 101 Carbon Dioxide 28 Anion Gap 11 BUN 12 Creatinine 0.9 Est GFR ( Amer) > 60 Est GFR (Non-Af Amer) > 60 POC Glucose (mg/dL) 117 H 112 H Random Glucose 83 Calcium 8.7 Phosphorus 3.2 Magnesium 1.7 Total Bilirubin 0.6 AST 22 ALT 19 L D Alkaline Phosphatase 77 Total Protein 6.3 Albumin 3.6 Globulin 2.7 Albumin/Globulin Ratio 1.4 12/19/18 12/19/18 12/19/18 06:24 07:36 12:00 WBC 4.4 L RBC 4.09 L Hgb 12.4 Hct 37.3 MCV 91.2 D MCH 30.3 MCHC 33.2 RDW 13.2 Plt Count 192 MPV 8.9 Neut % (Auto) 39.9 L Lymph % (Auto) 44.0 H [place] % (Auto) 12.3 H Eos % (Auto) 2.6 Baso % (Auto) 1.2 Neut # (Auto) 1.7 L Lymph # (Auto) 1.9 [place] # (Auto) 0.5 Eos # (Auto) 0.1 Baso # (Auto) 0.1 Sodium Potassium Chloride Carbon Dioxide Anion Gap BUN Creatinine Est GFR ( Amer) Est GFR (Non-Af Amer) POC Glucose (mg/dL) 100 133 H Random Glucose Calcium Phosphorus Magnesium Total Bilirubin AST ALT Alkaline Phosphatase Total Protein Albumin Globulin Albumin/Globulin Ratio Fingerstick Blood Sugar Results: 100 Critical Care Progress Note - Prophylaxis GI Prophylaxis GI: Not Indicated - Prophylaxis DVT Prophylaxis DVT: SCDs - Nutrition Nutrition: Nutrition Category Date Time Status Heart Healthy Diet [DIET] Diets 12/17/18 Dinner Active Assessment/Plan - Assessment and Plan (Free Text) Plan: 68 year old male with pmhx of asthma, CAD, HTN, came to ED for weakness whole body and right side droop of face, slurred speech, code stroke called for possible CVA, repeat CTA and carotid dopplers unremarkable on 12/19, 24 hour video EEG done show left temporal slowing p Neuro AAOx3 EEG monitor- Left temporal slowing, possible seizure - f/u official report and neuro recs f/u Dr Medrano recs correlation of symptoms with hypotension, consider vascular flow deficiency causing neuro symptoms 1 Bolus NS Cardio hypotensive this am correlation of symptoms with hypotension, consider vascular flow deficiency causing neuro symptoms 1 Bolus NS Watch BP and monitor for symptoms continue home meds: norvasc, metoprolol, losartan, HCTZ Pulm O2 NC Duonebs PRN Pulmicort Singulair GI HHD pepcid ppx Pepcid SCDS PT/OT Mulitvitamins Plan discussed with Dr Glory Mendoza, PGY-1 - Date & Time Date: 12/19/18 Time: 17:00 <John Holder - Last Filed: 12/19/18 16:20> CCU Objective - Vital Signs / Intake & Output Vital Signs (Last 4 hours): Vital Signs Pulse Resp BP 12/19/18 14:02 66 22 121/93 H 12/19/18 13:36 71 15 146/86 Intake and Output (Last 8hrs): Intake & Output 12/19/18 12/19/18 12/19/18 06:59 14:59 22:59 Output Total 600 0 Balance -600 0 Weight 132 lb 8 oz Output: Urine 600 0 Urine, Voided 600 0 Other: # Voids Urine, Voided 1 - Medications Active Medications: Active Medications Generic Name Dose Route Start Last Admin Trade Name Freq PRN Reason Stop Dose Admin Albuterol/Ipratropium 3 ml 12/17/18 20:00 12/19/18 07:41 Duoneb 3 Mg/0.5 Mg (3 Ml) Ud INH 3 ml RQ6 PRN Administration Shortness of Breath Aspirin 81 mg 12/19/18 10:00 12/19/18 09:09 Aspirin Chewable PO 81 mg DAILY [facility] Administration Budesonide 0.5 mg 12/18/18 11:00 12/19/18 11:30 Pulmicort Respules INH Not Given RQ12 [facility] Clopidogrel Bisulfate 75 mg 12/19/18 10:00 12/19/18 09:09 Plavix PO 75 mg DAILY [facility] Administration Divalproex Sodium 500 mg 12/20/18 10:[address] PO BID [facility] Docusate Sodium 100 mg 12/18/18 18:00 12/19/18 09:09 Colace PO 100 mg BID [facility] Administration Famotidine 20 mg 12/20/18 10:00 Pepcid PO DAILY DARSHAN Hydrochlorothiazide 25 mg 12/18/18 10:00 12/19/18 09:09 Hydrodiuril PO 25 mg DAILY DARSHAN Administration Heparin Sodium/Sodium Chloride 25,000 units in 250 mls @ 10.818 mls/hr 12/19/18 15:22 12/19/18 16:00 Heparin 91160 Units/250ml 1/2 Normal Saline IV 18 units/kg/hr .Q23H7M PRN 10.818 mls/hr ADJUST RATE PER PROTOCOL Administration Protocol 18 UNITS/KG/HR Midodrine 2.5 mg 12/19/18 18:00 Proamatine PO TID [facility] Montelukast Sodium 10 mg 12/18/18 10:00 12/19/18 12:39 Singulair PO 10 mg DAILY DARSHAN Administration Multivitamins 1 tab 12/18/18 10:00 12/19/18 09:10 Hexavitamin PO 1 tab DAILY [facility] Administration Rosuvastatin Calcium 5 mg 12/18/18 22:00 12/18/18 22:25 Crestor PO 5 mg HS DARSHAN Administration - Patient Studies Lab Studies: Microbiology Studies 12/17/18 13:00 MRSA Culture (Admit) - Final Naris MRSA NOT DETECTED Lab Studies 12/19/18 12/19/18 12/19/18 Range/Units 12:00 07:36 06:24 WBC 4.4 L (4.8-10.8) K/uL RBC 4.09 L (4.40-5.90) Mil/uL Hgb 12.4 (12.0-18.0) g/dL Hct 37.3 (35.0-51.0) % MCV 91.2 D (80.0-94.0) fL MCH 30.3 (27.0-31.0) pg MCHC 33.2 (33.0-37.0) g/dL RDW 13.2 (11.5-14.5) % Plt Count 192 (130-400) K/uL MPV 8.9 (7.2-11.7) fL Neut % (Auto) 39.9 L (50.0-75.0) % Lymph % (Auto) 44.0 H (20.0-40.0) % [place] % (Auto) 12.3 H (0.0-10.0) % Eos % (Auto) 2.6 (0.0-4.0) % Baso % (Auto) 1.2 (0.0-2.0) % Neut # (Auto) 1.7 L (1.8-7.0) K/uL Lymph # (Auto) 1.9 (1.0-4.3) K/uL [place] # (Auto) 0.5 (0.0-0.8) K/uL Eos # (Auto) 0.1 (0.0-0.7) K/uL Baso # (Auto) 0.1 (0.0-0.2) K/uL Sodium (132-148) mmol/L Potassium (3.6-5.2) mmol/L Chloride (98-107) mmol/L Carbon Dioxide (22-30) mmol/L Anion Gap (10-20) BUN (9-20) mg/dL Creatinine (0.8-1.5) mg/dL Est GFR ( Amer) Est GFR (Non-Af Amer) POC Glucose (mg/dL) 133 H 100 (65-110) mg/dL Random Glucose (75-110) mg/dL Calcium (8.6-10.4) mg/dl Phosphorus (2.5-4.5) mg/dL Magnesium (1.6-2.3) mg/dL Total Bilirubin (0.2-1.3) mg/dL AST (17-59) U/L ALT (21-72) U/L Alkaline Phosphatase (38-126) U/L Total Protein (6.3-8.3) g/dL Albumin (3.5-5.0) g/dL Globulin (2.2-3.9) gm/dL Albumin/Globulin Ratio (1.0-2.1) 12/19/18 12/18/18 12/18/18 Range/Units 06:21 21:24 16:31 WBC (4.8-10.8) K/uL RBC (4.40-5.90) Mil/uL Hgb (12.0-18.0) g/dL Hct (35.0-51.0) % MCV (80.0-94.0) fL MCH (27.0-31.0) pg MCHC (33.0-37.0) g/dL RDW (11.5-14.5) % Plt Count (130-400) K/uL MPV (7.2-11.7) fL Neut % (Auto) (50.0-75.0) % Lymph % (Auto) (20.0-40.0) % [place] % (Auto) (0.0-10.0) % Eos % (Auto) (0.0-4.0) % Baso % (Auto) (0.0-2.0) % Neut # (Auto) (1.8-7.0) K/uL Lymph # (Auto) (1.0-4.3) K/uL [place] # (Auto) (0.0-0.8) K/uL Eos # (Auto) (0.0-0.7) K/uL Baso # (Auto) (0.0-0.2) K/uL Sodium 135 (132-148) mmol/L Potassium 3.7 (3.6-5.2) mmol/L Chloride 101 (98-107) mmol/L Carbon Dioxide 28 (22-30) mmol/L Anion Gap 11 (10-20) BUN 12 (9-20) mg/dL Creatinine 0.9 (0.8-1.5) mg/dL Est GFR ( Amer) > 60 Est GFR (Non-Af Amer) > 60 POC Glucose (mg/dL) 112 H 117 H (65-110) mg/dL Random Glucose 83 (75-110) mg/dL Calcium 8.7 (8.6-10.4) mg/dl Phosphorus 3.2 (2.5-4.5) mg/dL Magnesium 1.7 (1.6-2.3) mg/dL Total Bilirubin 0.6 (0.2-1.3) mg/dL AST 22 (17-59) U/L ALT 19 L D (21-72) U/L Alkaline Phosphatase 77 (38-126) U/L Total Protein 6.3 (6.3-8.3) g/dL Albumin 3.6 (3.5-5.0) g/dL Globulin 2.7 (2.2-3.9) gm/dL Albumin/Globulin Ratio 1.4 (1.0-2.1) Laboratory Results - last 24 hr 12/18/18 12/18/18 12/19/18 16:31 21:24 06:21 WBC RBC Hgb Hct MCV MCH MCHC RDW Plt Count MPV Neut % (Auto) Lymph % (Auto) [place] % (Auto) Eos % (Auto) Baso % (Auto) Neut # (Auto) Lymph # (Auto) [place] # (Auto) Eos # (Auto) Baso # (Auto) Sodium 135 Potassium 3.7 Chloride 101 Carbon Dioxide 28 Anion Gap 11 BUN 12 Creatinine 0.9 Est GFR ( Amer) > 60 Est GFR (Non-Af Amer) > 60 POC Glucose (mg/dL) 117 H 112 H Random Glucose 83 Calcium 8.7 Phosphorus 3.2 Magnesium 1.7 Total Bilirubin 0.6 AST 22 ALT 19 L D Alkaline Phosphatase 77 Total Protein 6.3 Albumin 3.6 Globulin 2.7 Albumin/Globulin Ratio 1.4 12/19/18 12/19/18 12/19/18 06:24 07:36 12:00 WBC 4.4 L RBC 4.09 L Hgb 12.4 Hct 37.3 MCV 91.2 D MCH 30.3 MCHC 33.2 RDW 13.2 Plt Count 192 MPV 8.9 Neut % (Auto) 39.9 L Lymph % (Auto) 44.0 H [place] % (Auto) 12.3 H Eos % (Auto) 2.6 Baso % (Auto) 1.2 Neut # (Auto) 1.7 L Lymph # (Auto) 1.9 [place] # (Auto) 0.5 Eos # (Auto) 0.1 Baso # (Auto) 0.1 Sodium Potassium Chloride Carbon Dioxide Anion Gap BUN Creatinine Est GFR ( Amer) Est GFR (Non-Af Amer) POC Glucose (mg/dL) 100 133 H Random Glucose Calcium Phosphorus Magnesium Total Bilirubin AST ALT Alkaline Phosphatase Total Protein Albumin Globulin Albumin/Globulin Ratio Critical Care Progress Note - Nutrition Nutrition: Nutrition Category Date Time Status Heart Healthy Diet [DIET] Diets 12/17/18 Dinner Active Attending/Attestation - Attestation I have personally seen and examined this patient.: Yes I have fully participated in the care of the patient.: Yes I have reviewed all pertinent clinical information: Yes Notes (Text): 12/19/18 16:18 I have seen and examined the patient. Medical records, lab studies, and imaging were reviewed by me and a management plan was formulated on multidisciplinary rounds with resident Dr. Mendoza. I agree with their documented assessment and plan. Patient is sitll having intermittent signs of aphasia and right facial droop. Today this was seen to be associated with a minor drop in blood pressure. We are now stopping all anti-hypertensives and starting the patient on midodrine, and a heparin drip for suspected thrombotic Left MCA occlusion. Discussed with neurology, Dr. Hernandez. Critical Care Time 35 minutes. Multi-disciplinary rounds were performed with house staff, nursing, speech therapy, respiratory therapy, pharmacy and nutrition with integrated input from the primary team/attending and other consulting services. The documented time is cumulative and includes review of patient data/exams/labs/chart review and examination of the patient on rounds and throughout the day; time is exclusive of any procedures or teaching time.
--- NOTE | 2018-12-19 14:49 | CP.PCM.PN ---
Subjective - Date & Time of Evaluation Date of Evaluation: 12/19/18 Time of Evaluation: 14:48 - Subjective Subjective: Neurology Follow-Up Note: Mr. Hdz was evaluated this afternoon in the ICU. Family present at bedside. Pt is complaining of not being able to "get the right words out." He denies h/a, dizziness, visual changes, chest pain, palpitations, sob, cough, abd pain, n/v/d. Objective - Vital Signs/Intake and Output Vital Signs (last 24 hours): Temp Pulse Resp BP Pulse Ox 98.3 F 66 22 121/93 H 97 12/19/18 04:00 12/19/18 14:02 12/19/18 14:02 12/19/18 14:02 12/19/18 07:00 Intake and Output: 12/19/18 12/19/18 06:59 18:59 Intake Total 360 Output Total 600 0 Balance -240 0 - Medications Medications: Current Medications Albuterol/Ipratropium (Duoneb 3 Mg/0.5 Mg (3 Ml) Ud) 3 ml INH RQ6 PRN PRN Reason: Shortness of Breath Last Admin: 12/19/18 07:41 Dose: 3 ml Amlodipine Besylate (Norvasc) 10 mg PO DAILY [facility] Last Admin: 12/19/18 09:09 Dose: 10 mg Aspirin (Aspirin Chewable) 81 mg PO DAILY [facility] Last Admin: 12/19/18 09:09 Dose: 81 mg Budesonide (Pulmicort Respules) 0.5 mg INH RQ12 [facility] Last Admin: 12/19/18 11:30 Dose: Not Given Clopidogrel Bisulfate (Plavix) 75 mg PO DAILY [facility] Last Admin: 12/19/18 09:09 Dose: 75 mg Docusate Sodium (Colace) 100 mg PO BID [facility] Last Admin: 12/19/18 09:09 Dose: 100 mg Hydrochlorothiazide (Hydrodiuril) 25 mg PO DAILY [facility] Last Admin: 12/19/18 09:09 Dose: 25 mg Losartan Potassium (Cozaar) 100 mg PO DAILY [facility] Last Admin: 12/19/18 09:09 Dose: 100 mg Metoprolol Succinate (Toprol Xl) 25 mg PO DAILY [facility] Last Admin: 12/19/18 09:09 Dose: 25 mg Montelukast Sodium (Singulair) 10 mg PO DAILY [facility] Last Admin: 12/19/18 12:39 Dose: 10 mg Multivitamins (Hexavitamin) 1 tab PO DAILY [facility] Last Admin: 12/19/18 09:10 Dose: 1 tab Rosuvastatin Calcium (Crestor) 5 mg PO HS [facility] Last Admin: 12/18/18 22:25 Dose: 5 mg - Labs Labs: 12/19/18 06:24 12/19/18 06:21 PT 11.2 SECONDS (9.7-12.2) 12/17/18 09:32 INR 1.0 12/17/18 09:32 APTT 30 SECONDS (21-34) 12/17/18 09:32 - Constitutional Appears: Well, Non-toxic, No Acute Distress - Head Exam Head Exam: ATRAUMATIC, NORMAL INSPECTION, NORMOCEPHALIC - Eye Exam Eye Exam: EOMI, Normal appearance Pupil Exam: NORMAL ACCOMODATION, PERRL - ENT Exam ENT Exam: Mucous Membranes Moist, Normal Exam - Neck Exam Neck Exam: Full ROM, Normal Inspection - Respiratory Exam Respiratory Exam: NORMAL BREATHING PATTERN - Cardiovascular Exam Cardiovascular Exam: REGULAR RHYTHM - GI/Abdominal Exam GI & Abdominal Exam: Soft - Extremities Exam Extremities Exam: Full ROM (able to move all extremities with minimal right sided weakness), Normal Inspection. absent: Calf Tenderness, Pedal Edema - Back Exam Back Exam: Full ROM, NORMAL INSPECTION - Neurological Exam Neurological Exam: Alert, Awake, CN II-XII Intact, Oriented x3, Reflexes Normal Neuro motor strength exam: Left Upper Extremity: 5, Right Upper Extremity: 4 (pipelayer 4/5), Left Lower Extremity: 5, Right Lower Extremity: 4 Additional comments: AAOx3 Speech clear, no slurring. + expressive aphasia noted Slight right facial droop--more noticeable when pt smiles. + right pronator drift noted + right dysmetria noted with [id number] test Sensation slightly diminished to the RLE but intact to right side of face and RUE Gait not assessed; PT notes reviewed. - Psychiatric Exam Psychiatric exam: Normal Affect, Normal Mood - Skin Skin Exam: Normal Color Assessment and Plan (1) CVA (cerebral vascular accident) Assessment & Plan: Imaging reviewed: -CT head (12/18/18): No evidence of acute infarct. No intracranial mass or hemorrhage. Mild age-appropriate atrophy and chronic white matter ischemic change. No change from 12/17/2018. -MRA Neck (12/17/18): No significant stenosis bilateral common or internal carotid arteries with prominent right and [id number] left carotid bulbar atherosclerotic plaque identified. No significant stenosis in either common or internal carotid artery as imaged. -MRA Head (12/17/18): Limited examination due to motion artifacts. This is most apparent in evaluation of the basilar artery, including source images. No significant interval stenosis or occlusion is felt to be present, particularly based on source images in this noncontrast MRI of the brain. The CT angiogram of the brain is felt to be far more robust in evaluation of the arterial anatomy of the brain and neck unless there has been a significant change in the neurological status since prior CT head and neck 12/17/2018 9:41 a.m.. Note, no acute intracranial findings are demonstrated in brain MRI immediately preceding this examination 12/17/2018. -MRI Brain (12/17/18): Stable age-appropriate limited age related neuro degenerative change are identified as discussed above. There is no abnormal intracranial enhancement throughout the brain or extra-axial spaces.. -CTA Head and neck (12/17/18): 1. Limited bilateral carotid bulbar atherosclerosis without significant stenosis in the bilateral common or internal carotid arteries identified. 2. Bilateral cavernous partially calcified atherosclerosis with a least moderate stenosis at the right but no significant left-sided stenosis. Bilateral ICAs appear patent through their bifurcations. 3. No definite intracranial or extracranial arterial occlusion appreciable. 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 -CT Head (12/17/18): No evidence of acute infarct. No intracranial hemorrhage. Minimal chronic white matter ischemic change. 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 Neuro IR evaluated pt yesterday for the occlusion; no surgical intervention per their notes. -EEG read by Dr. Medrano---showed left temporal lobe slowing, possible seizure. -Seizure precautions. -We will load him with Depakote 1,000 mg PO x1 dose today, then start Depakote 500mg PO BID tomorrow morning -Continue BP control -Continue ICU monitoring -Continue PT/OT---PT recommends acute rehab. -Possibly repeat CT Head within 24-48 hours to re-eval for any acute changes. -Notify neuro team of any acute changes in condition. Time spent in ICU with pt and family for full neuro exam and for discussing pt's results/plan: 35 minutes. Case discussed with Dr. Hernandez Status: Acute
[2018-12-19] MEDS ORDERED: Divalproex 500 mg DR Tab PO STA (15:19)
--- NOTE | 2018-12-19 15:51 | CARD ---
APPROVED REPORT Date of service: 12/17/2018 EKG Measurement Heart [id number] <Conclusion> Sinus bradycardia Left axis deviation Abnormal ECG
[2018-12-19] MEDS: Heparin25000 units/250ml 1/2NS 25,000 UNITS/250 ML BAG IV PRN (16:00)
--- NOTE | 2018-12-19 16:39 | PCM.VEEG ---
Video EEG - Procedure Start Date: 12/18/18 Start Time: 14:20 End Date: 12/19/18 Technical Summary: This is a video EEG acquired using the 10/20 international electrode system. Azar detection was employed and reviewed by physician. Electrodes were referenced to A1 and A2 and P1 and P2 respectively. - Interpretation Description of the study: The posterior dominant rhythm was a well developed 10 hz activity that is reactive, well modulated and symmetric with eye opening. There was a normal amount of frontal beta noted in the frontal regions bilaterally. Drowsiness was achieved with attenuation of rhythms. Normal sleep was achieved with bilaterally symmetric 12 hz spindles, K complexes and POSTS. Throughout the record there was a delta theta activity mainly in the left temporal region, which was not TIRDA. There were no clinical or subclinical seizures noted. There were no interictal epileptiform discharges. Interictal non-epileptiform abnormalities: none - Impression Impression: This is an abnormal awake and sleep video EEG. Continuous slowing in the left temporal region indicates focal intracerebral lesion or postictal state. Dr. Harvey Medrano MD DPN System director of Epilepsy [facility]
[2018-12-20 05:50] LABS: BASO # 0.1 K/uL (0.0-0.2); BASO % 1.1 % (0.0-2.0); EOS # 0.3 K/uL (0.0-0.7); EOS % 5.7 % (0.0-4.0); HEMOGLOBIN 13.4 g/dL (12.0-18.0); LYMPH # 2.6 K/uL (1.0-4.3); LYMPH % 45.9 % (20.0-40.0); MEAN CELL VOLUME 91.7 fL (80.0-94.0); MEAN CORPUSCULAR HEMOGLOBIN 30.6 pg (27.0-31.0); MEAN CORPUSCULAR HGB CONC 33.4 g/dL (33.0-37.0); MEAN PLATELET VOLUME 8.6 fL (7.2-11.7); MONO # 0.7 K/uL (0.0-0.8); MONO % 13.2 % (0.0-10.0); NEUT # 1.9 K/uL (1.8-7.0); NEUT % 34.1 % (50.0-75.0); NRBC % 0.1 % (0.0-2.0); RBC 4.38 Mil/uL (4.40-5.90); RED CELL DISTRIBUTION WIDTH 13.2 % (11.5-14.5); WHITE BLOOD COUNT 5.7 K/uL (4.8-10.8)
[2018-12-20 06:26] LABS: ALB/GLOB RATIO 1.2 (1.0-2.1); ALBUMIN 3.7 g/dL (3.5-5.0); ALT/SGPT 9 U/L (21-72); AST/SGOT 29 U/L (17-59); BLOOD UREA NITROGEN 14 mg/dL (9-20); GFR NON-AFRICAN AMERICAN > 60
[2018-12-20] MEDS: Albuterol-Ipratrop 3 mg / 0.5 (3 ml) UD INH PRN ×2 (07:56→20:09)
[2018-12-20] MEDS: Budesonide 0.5 mg/2 ml Inhal Susp UD INH SCH ×2 (07:56→20:10)
[2018-12-20] MEDS ORDERED: Divalproex 500 mg DR Tab PO SCH (10:00)
[2018-12-20] MEDS: Multiple Vitamins Tab PO SCH (10:12)
--- NOTE | 2018-12-20 12:41 | CP.PCM.PN ---
Subjective - Date & Time of Evaluation Date of Evaluation: 12/20/18 Time of Evaluation: 12:35 - Subjective Subjective: Mr. Hdz was seen and examined today in the ICU. He did not have any new weakness or any recurrent events overnight. He continues to be on heparin drip and was on aspirin and plavix as well, but I discontinued these. He was started on midodrine to increase his blood pressure after it was noted that he became more symptomatic with lower pressures. This was discussed wit Dr. 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 Objective - Vital Signs/Intake and Output Vital Signs (last 24 hours): Temp Pulse Resp BP Pulse Ox 98.2 F 64 22 92/60 L 97 12/20/18 08:00 12/20/18 10:00 12/20/18 10:00 12/20/18 10:01 12/20/18 10:00 Intake and Output: 12/20/18 12/20/18 06:59 18:59 Intake Total 588 627 Output Total 1600 Balance -1012 627 - Medications Medications: Current Medications Albuterol/Ipratropium (Duoneb 3 Mg/0.5 Mg (3 Ml) Ud) 3 ml INH RQ6 PRN PRN Reason: Shortness of Breath Last Admin: 12/20/18 07:56 Dose: 3 ml Aspirin (Aspirin Chewable) 81 mg PO DAILY [facility] Last Admin: 12/20/18 10:12 Dose: 81 mg Budesonide (Pulmicort Respules) 0.5 mg INH RQ12 [facility] Last Admin: 12/20/18 07:56 Dose: 0.5 mg Clopidogrel Bisulfate (Plavix) 75 mg PO DAILY [facility] Last Admin: 12/20/18 10:12 Dose: 75 mg Divalproex Sodium (Depakote Dr) 500 mg PO BID [facility] Last Admin: 12/20/18 10:12 Dose: 500 mg Docusate Sodium (Colace) 100 mg PO BID [facility] Last Admin: 12/20/18 10:12 Dose: 100 mg Famotidine (Pepcid) 20 mg PO DAILY [facility] Last Admin: 12/20/18 10:12 Dose: 20 mg Heparin Sodium/Sodium Chloride (Heparin 98925 Units/250ml 1/2 Normal Saline) 25,000 units in 250 mls @ 10.818 mls/hr IV .Q23H7M PRN; Protocol PRN Reason: ADJUST RATE PER PROTOCOL Last Titration: 12/19/18 18:30 Dose: 15 units/kg/hr, 9.015 mls/hr Lactated Ringer's (Lactated Ringer's) 1,000 mls @ 100 mls/hr IV .Q10H [facility] Midodrine (Proamatine) 2.5 mg PO TID [facility] Last Admin: 12/20/18 10:12 Dose: 2.5 mg Montelukast Sodium (Singulair) 10 mg PO DAILY [facility] Last Admin: 12/20/18 10:12 Dose: 10 mg Multivitamins (Hexavitamin) 1 tab PO DAILY [facility] Last Admin: 12/20/18 10:12 Dose: 1 tab Rosuvastatin Calcium (Crestor) 5 mg PO HS [facility] Last Admin: 12/19/18 22:00 Dose: 5 mg - Labs Labs: 12/20/18 05:40 12/20/18 05:40 PT 11.2 SECONDS (9.7-12.2) 12/17/18 09:32 INR 1.0 12/17/18 09:32 APTT 68 SECONDS (21-34) H 12/20/18 05:40 - Constitutional Appears: Well - Head Exam Head Exam: ATRAUMATIC, NORMAL INSPECTION, NORMOCEPHALIC - Eye Exam Eye Exam: EOMI, Normal appearance, PERRL Pupil Exam: NORMAL ACCOMODATION, PERRL - ENT Exam ENT Exam: Mucous Membranes Moist, Normal Exam - Neck Exam Neck Exam: Full ROM, Normal Inspection. absent: Lymphadenopathy - Respiratory Exam Respiratory Exam: Clear to Ausculation Bilateral, NORMAL BREATHING PATTERN - Cardiovascular Exam Cardiovascular Exam: REGULAR RHYTHM, +S1, +S2. absent: Murmur - GI/Abdominal Exam GI & Abdominal Exam: Soft, Normal Bowel Sounds. absent: Tenderness - Extremities Exam Extremities Exam: Full ROM, Normal Capillary Refill, Normal Inspection. absent: Joint Swelling, Pedal Edema - Back Exam Back Exam: NORMAL INSPECTION - Neurological Exam Neurological Exam: Abnormal Gait, Alert, Awake, CN II-XII Intact, Oriented x3, Reflexes Normal Neuro motor strength exam: Left Upper Extremity: 5, Right Upper Extremity: 5, Left Lower Extremity: 5, Right Lower Extremity: 5 Additional comments: Slight pronator drift of right arm. NIHSS = 1 - Psychiatric Exam Psychiatric exam: Normal Affect, Normal Mood - Skin Skin Exam: Dry, Intact, Normal Color, Warm Assessment and Plan (1) Hypoperfusion of brain Assessment & Plan: This is likely due to dependence on collateral flow. We will continue heparin drip and midodrine with the hope of allowing more time for collateral development. The goal for the PTT with heparin is 70-90. Will hold aspirin and plavix for now to avoid the added risk of bleeding. The plan is to continue heparin drip for another 24 hours and then re-evaluate. Status: Acute
[2018-12-20] MEDS: Lactated Ringer's 1,000 ML IV SCH (13:29)
--- NOTE | 2018-12-20 18:21 | CP.CCUPN ---
CCU Subjective - Physician Review Events Since Last Encounter (Free Text): 12/20/18 18:16 no further episodes of aphasia today. CCU Objective - Vital Signs / Intake & Output Vital Signs (Last 4 hours): Vital Signs Pulse Resp BP Pulse Ox 12/20/18 15:02 99/72 L 12/20/18 15:00 74 13 100 Intake and Output (Last 8hrs): Intake & Output 12/20/18 12/20/18 12/20/18 06:59 14:59 22:59 Intake Total 72 1047 Output Total 700 200 300 Balance -628 847 -300 Weight 129 lb 8 oz Intake: Intake, IV Amount 72 27 Left Antecubital 72 27 Oral 1020 Output: Urine 700 200 300 Urine, Voided 700 200 300 Other: # Voids Urine, Voided 1 # Bowel Movements 1 1 - Physical Exam Head: Positive for: Atraumatic, Normocephalic Pupils: Positive for: PERRL Extroacular Muscles: Positive for: EOMI Conjunctiva: Positive for: Normal Neck: Positive for: Normal Range of Motion Respiratory/Chest: Positive for: Clear to Auscultation. Negative for: Wheezes, Rales, Rhonchi Cardiovascular: Positive for: Regular Rate and Rhythm, Normal S1, S2 Abdomen: Positive for: Normal Bowel Sounds. Negative for: Tenderness, Distention Upper Extremity: Positive for: Normal Inspection. Negative for: Edema Lower Extremity: Positive for: Normal Inspection. Negative for: Edema Neurological: Positive for: GCS=15, Motor Func Grossly Intact, Normal Sensory Function, Normal Cerebellar Funct, Normal 2Pt Descrimination, Other (right sided face drooping ) Skin: Positive for: Warm, Dry, Normal Color Psychiatric: Positive for: Alert, Oriented x 3, Normal Insight, Normal Concentration, Normal Affect, Normal Mood - Medications Active Medications: Active Medications Generic Name Dose Route Start Last Admin Trade Name Freq PRN Reason Stop Dose Admin Albuterol/Ipratropium 3 ml 12/17/18 20:00 12/20/18 07:56 Duoneb 3 Mg/0.5 Mg (3 Ml) Ud INH 3 ml RQ6 PRN Administration Shortness of Breath Budesonide 0.5 mg 12/18/18 11:00 12/20/18 07:56 Pulmicort Respules INH 0.5 mg RQ12 [facility] Administration Docusate Sodium 100 mg 12/18/18 18:00 12/20/18 10:12 Colace PO 100 mg BID [facility] Administration Famotidine 20 mg 12/20/18 10:00 12/20/18 10:12 Pepcid PO 20 mg DAILY [facility] Administration Heparin Sodium/Sodium Chloride 25,000 units in 250 mls @ 10.818 mls/hr 12/19/18 15:22 12/19/18 18:30 Heparin 06772 Units/250ml 1/2 Normal Saline IV 15 units/kg/hr .Q23H7M PRN 9.015 mls/hr ADJUST RATE PER PROTOCOL Titration Protocol 18 UNITS/KG/HR Lactated Ringer's 1,000 mls @ 100 mls/hr 12/20/18 11:30 12/20/18 13:29 Lactated Ringer's IV 100 mls/hr .Q10H [facility] Administration Midodrine 2.5 mg 12/19/18 18:00 12/20/18 15:26 Proamatine PO 2.5 mg TID [facility] Administration Montelukast Sodium 10 mg 12/18/18 10:00 12/20/18 10:12 Singulair PO 10 mg DAILY [facility] Administration Multivitamins 1 tab 12/18/18 10:00 12/20/18 10:12 Hexavitamin PO 1 tab DAILY [facility] Administration Rosuvastatin Calcium 5 mg 12/18/18 22:00 12/19/18 22:00 Crestor PO 5 mg HS [facility] Administration - Patient Studies Lab Studies: Lab Studies 12/20/18 12/20/18 12/20/18 Range/Units 16:48 11:51 07:32 WBC (4.8-10.8) K/uL RBC (4.40-5.90) Mil/uL Hgb (12.0-18.0) g/dL Hct (35.0-51.0) % MCV (80.0-94.0) fL MCH (27.0-31.0) pg MCHC (33.0-37.0) g/dL RDW (11.5-14.5) % Plt Count (130-400) K/uL MPV (7.2-11.7) fL Neut % (Auto) (50.0-75.0) % Lymph % (Auto) (20.0-40.0) % [place] % (Auto) (0.0-10.0) % Eos % (Auto) (0.0-4.0) % Baso % (Auto) (0.0-2.0) % Neut # (Auto) (1.8-7.0) K/uL Lymph # (Auto) (1.0-4.3) K/uL [place] # (Auto) (0.0-0.8) K/uL Eos # (Auto) (0.0-0.7) K/uL Baso # (Auto) (0.0-0.2) K/uL APTT (21-34) SECONDS Sodium (132-148) mmol/L Potassium (3.6-5.2) mmol/L Chloride (98-107) mmol/L Carbon Dioxide (22-30) mmol/L Anion Gap (10-20) BUN (9-20) mg/dL Creatinine (0.8-1.5) mg/dL Est GFR ( Amer) Est GFR (Non-Af Amer) POC Glucose (mg/dL) 166 H 80 93 (65-110) mg/dL Random Glucose (75-110) mg/dL Calcium (8.6-10.4) mg/dl Phosphorus (2.5-4.5) mg/dL Magnesium (1.6-2.3) mg/dL Total Bilirubin (0.2-1.3) mg/dL AST (17-59) U/L ALT (21-72) U/L Alkaline Phosphatase (38-126) U/L Total Protein (6.3-8.3) g/dL Albumin (3.5-5.0) g/dL Globulin (2.2-3.9) gm/dL Albumin/Globulin Ratio (1.0-2.1) 12/20/18 12/20/18 12/20/18 Range/Units 05:40 05:40 05:40 WBC 5.7 (4.8-10.8) K/uL RBC 4.38 L (4.40-5.90) Mil/uL Hgb 13.4 (12.0-18.0) g/dL Hct 40.1 (35.0-51.0) % MCV 91.7 (80.0-94.0) fL MCH 30.6 (27.0-31.0) pg MCHC 33.4 (33.0-37.0) g/dL RDW 13.2 (11.5-14.5) % Plt Count 212 (130-400) K/uL MPV 8.6 (7.2-11.7) fL Neut % (Auto) 34.1 L (50.0-75.0) % Lymph % (Auto) 45.9 H (20.0-40.0) % [place] % (Auto) 13.2 H (0.0-10.0) % Eos % (Auto) 5.7 H (0.0-4.0) % Baso % (Auto) 1.1 (0.0-2.0) % Neut # (Auto) 1.9 (1.8-7.0) K/uL Lymph # (Auto) 2.6 (1.0-4.3) K/uL [place] # (Auto) 0.7 (0.0-0.8) K/uL Eos # (Auto) 0.3 (0.0-0.7) K/uL Baso # (Auto) 0.1 (0.0-0.2) K/uL APTT 68 H (21-34) SECONDS Sodium 136 (132-148) mmol/L Potassium 4.2 (3.6-5.2) mmol/L Chloride 101 (98-107) mmol/L Carbon Dioxide 29 (22-30) mmol/L Anion Gap 11 (10-20) BUN 14 (9-20) mg/dL Creatinine 1.1 (0.8-1.5) mg/dL Est GFR ( Amer) > 60 Est GFR (Non-Af Amer) > 60 POC Glucose (mg/dL) (65-110) mg/dL Random Glucose 82 (75-110) mg/dL Calcium 9.0 (8.6-10.4) mg/dl Phosphorus 3.4 (2.5-4.5) mg/dL Magnesium 1.8 (1.6-2.3) mg/dL Total Bilirubin 0.8 (0.2-1.3) mg/dL AST 29 (17-59) U/L ALT 9 L D (21-72) U/L Alkaline Phosphatase 82 (38-126) U/L Total Protein 6.8 (6.3-8.3) g/dL Albumin 3.7 (3.5-5.0) g/dL Globulin 3.0 (2.2-3.9) gm/dL Albumin/Globulin Ratio 1.2 (1.0-2.1) 12/20/18 12/19/18 Range/Units 00:51 21:07 WBC (4.8-10.8) K/uL RBC (4.40-5.90) Mil/uL Hgb (12.0-18.0) g/dL Hct (35.0-51.0) % MCV (80.0-94.0) fL MCH (27.0-31.0) pg MCHC (33.0-37.0) g/dL RDW (11.5-14.5) % Plt Count (130-400) K/uL MPV (7.2-11.7) fL Neut % (Auto) (50.0-75.0) % Lymph % (Auto) (20.0-40.0) % [place] % (Auto) (0.0-10.0) % Eos % (Auto) (0.0-4.0) % Baso % (Auto) (0.0-2.0) % Neut # (Auto) (1.8-7.0) K/uL Lymph # (Auto) (1.0-4.3) K/uL [place] # (Auto) (0.0-0.8) K/uL Eos # (Auto) (0.0-0.7) K/uL Baso # (Auto) (0.0-0.2) K/uL APTT 71 H D (21-34) SECONDS Sodium (132-148) mmol/L Potassium (3.6-5.2) mmol/L Chloride (98-107) mmol/L Carbon Dioxide (22-30) mmol/L Anion Gap (10-20) BUN (9-20) mg/dL Creatinine (0.8-1.5) mg/dL Est GFR ( Amer) Est GFR (Non-Af Amer) POC Glucose (mg/dL) 92 (65-110) mg/dL Random Glucose (75-110) mg/dL Calcium (8.6-10.4) mg/dl Phosphorus (2.5-4.5) mg/dL Magnesium (1.6-2.3) mg/dL Total Bilirubin (0.2-1.3) mg/dL AST (17-59) U/L ALT (21-72) U/L Alkaline Phosphatase (38-126) U/L Total Protein (6.3-8.3) g/dL Albumin (3.5-5.0) g/dL Globulin (2.2-3.9) gm/dL Albumin/Globulin Ratio (1.0-2.1) Laboratory Results - last 24 hr 12/19/18 12/20/18 12/20/18 21:07 00:51 05:40 WBC 5.7 RBC 4.38 L Hgb 13.4 Hct 40.1 MCV 91.7 MCH 30.6 MCHC 33.4 RDW 13.2 Plt Count 212 MPV 8.6 Neut % (Auto) 34.1 L Lymph % (Auto) 45.[address] [place] % (Auto) 13.2 H Eos % (Auto) 5.7 H Baso % (Auto) 1.1 Neut # (Auto) 1.9 Lymph # (Auto) 2.6 [place] # (Auto) 0.7 Eos # (Auto) 0.3 Baso # (Auto) 0.1 APTT 71 H D Sodium Potassium Chloride Carbon Dioxide Anion Gap BUN Creatinine Est GFR ( Amer) Est GFR (Non-Af Amer) POC Glucose (mg/dL) 92 Random Glucose Calcium Phosphorus Magnesium Total Bilirubin AST ALT Alkaline Phosphatase Total Protein Albumin Globulin Albumin/Globulin Ratio 12/20/18 12/20/18 12/20/18 05:40 05:40 07:32 WBC RBC Hgb Hct MCV MCH MCHC RDW Plt Count MPV Neut % (Auto) Lymph % (Auto) [place] % (Auto) Eos % (Auto) Baso % (Auto) Neut # (Auto) Lymph # (Auto) [place] # (Auto) Eos # (Auto) Baso # (Auto) APTT 68 H Sodium 136 Potassium 4.2 Chloride 101 Carbon Dioxide 29 Anion Gap 11 BUN 14 Creatinine 1.1 Est GFR ( Amer) > 60 Est GFR (Non-Af Amer) > 60 POC Glucose (mg/dL) 93 Random Glucose 82 Calcium 9.0 Phosphorus 3.4 Magnesium 1.8 Total Bilirubin 0.8 AST 29 ALT 9 L D Alkaline Phosphatase 82 Total Protein 6.8 Albumin 3.7 Globulin 3.0 Albumin/Globulin Ratio 1.2 12/20/18 12/20/18 11:51 16:48 WBC RBC Hgb Hct MCV MCH MCHC RDW Plt Count MPV Neut % (Auto) Lymph % (Auto) [place] % (Auto) Eos % (Auto) Baso % (Auto) Neut # (Auto) Lymph # (Auto) [place] # (Auto) Eos # (Auto) Baso # (Auto) APTT Sodium Potassium Chloride Carbon Dioxide Anion Gap BUN Creatinine Est GFR ( Amer) Est GFR (Non-Af Amer) POC Glucose (mg/dL) 80 166 H Random Glucose Calcium Phosphorus Magnesium Total Bilirubin AST ALT Alkaline Phosphatase Total Protein Albumin Globulin Albumin/Globulin Ratio Fingerstick Blood Sugar Results: 80 Review of Systems - Review of Systems All systems: reviewed and no additional remarkable complaints except (no complaints) Critical Care Progress Note - Nutrition Nutrition: Nutrition Category Date Time Status Heart Healthy Diet [DIET] Diets 12/17/18 Dinner Active Assessment/Plan (1) CVA (cerebral vascular accident) Assessment and plan: 68yo M. PMHx of asthma, CAD with stents. p/w stroke like symptoms, out of the window for tpa. Neuro: alert and oriented, no further episodes of aphasia today. If any recurrence of symptoms will have to rediscuss possible intervention with thrombectomy. Dr. Hernandez - Neuro and neurointerventional team following. Pulm: no acute issues, breathing spontaneously on room air. CV: allowing permissive hypertension, with midodrine, fluids, and pressors if ne eded. Hem: continue heparin gtt for 24h more. Renal: no acute issues, monitoring urine output. Endo: no acute issues GI: regular diet ID: no acute issues DVT proph - heparin gtt GI proph - protonix srinivasan for strict I/O's during acute illness Code status - full code Critical Care Time spent 35 minutes Multi-disciplinary rounds were performed with house staff, nursing, speech therapy, respiratory therapy, pharmacy and nutrition with integrated input from the primary team/attending and other consulting services. The documented time is cumulative and includes review of patient data/exams/labs/chart review and examination of the patient on rounds and throughout the day; time is exclusive of any procedures or teaching time. Current Visit: Yes Status: Acute
[2018-12-21] MEDS: Lactated Ringer's 1,000 ML IV SCH ×5 (05:03→18:27)
[2018-12-21 06:28] LABS: BASO % 0.5 % (0.0-2.0); EOS # 0.3 K/uL (0.0-0.7); EOS % 5.5 % (0.0-4.0); HEMOGLOBIN 12.9 g/dL (12.0-18.0); LYMPH # 2.1 K/uL (1.0-4.3); LYMPH % 39.9 % (20.0-40.0); MEAN CELL VOLUME 92.9 fL (80.0-94.0); MEAN CORPUSCULAR HEMOGLOBIN 30.3 pg (27.0-31.0); MEAN CORPUSCULAR HGB CONC 32.6 g/dL (33.0-37.0); MEAN PLATELET VOLUME 8.8 fL (7.2-11.7); MONO # 0.6 K/uL (0.0-0.8); MONO % 11.9 % (0.0-10.0); NEUT # 2.2 K/uL (1.8-7.0); NEUT % 42.2 % (50.0-75.0); NRBC % 0.1 % (0.0-2.0); RBC 4.27 Mil/uL (4.40-5.90); RED CELL DISTRIBUTION WIDTH 13.1 % (11.5-14.5); WHITE BLOOD COUNT 5.2 K/uL (4.8-10.8)
[2018-12-21 06:32] LABS: INR 1.1; PROTHROMBIN TIME 11.5 SECONDS (9.7-12.2)
[2018-12-21 06:53] LABS: ALB/GLOB RATIO 1.3 (1.0-2.1); ALBUMIN 3.7 g/dL (3.5-5.0); ALT/SGPT 14 U/L (21-72); AST/SGOT 35 U/L (17-59); BLOOD UREA NITROGEN 17 mg/dL (9-20); CALCIUM 9.1 mg/dl (8.6-10.4); GFR NON-AFRICAN AMERICAN > 60
[2018-12-21] MEDS: Albuterol-Ipratrop 3 mg / 0.5 (3 ml) UD INH PRN ×2 (07:50→21:11)
[2018-12-21] MEDS: Budesonide 0.5 mg/2 ml Inhal Susp UD INH SCH ×2 (07:50→21:11)
[2018-12-21] MEDS: Multiple Vitamins Tab PO SCH (09:48)
--- NOTE | 2018-12-21 11:59 | CP.PCM.PN ---
Subjective - Date & Time of Evaluation Date of Evaluation: 12/21/18 Time of Evaluation: 11:55 - Subjective Subjective: No events, no other episodes reported. Objective - Vital Signs/Intake and Output Vital Signs (last 24 hours): Temp Pulse Resp BP Pulse Ox 97.5 F L 86 24 126/90 96 12/21/18 08:00 12/21/18 09:02 12/21/18 09:02 12/21/18 09:02 12/21/18 09:02 Intake and Output: 12/21/18 12/21/18 06:59 18:59 Intake Total 1199 627 Output Total 200 480 Balance 999 147 - Medications Medications: Current Medications Albuterol/Ipratropium (Duoneb 3 Mg/0.5 Mg (3 Ml) Ud) 3 ml INH RQ6 PRN PRN Reason: Shortness of Breath Last Admin: 12/21/18 07:50 Dose: 3 ml Aspirin (Aspirin Chewable) 81 mg PO DAILY [facility] Last Admin: 12/21/18 09:50 Dose: 81 mg Budesonide (Pulmicort Respules) 0.5 mg INH RQ12 [facility] Last Admin: 12/21/18 07:50 Dose: 0.5 mg Docusate Sodium (Colace) 100 mg PO BID [facility] Last Admin: 12/21/18 09:48 Dose: 100 mg Famotidine (Pepcid) 20 mg PO DAILY [facility] Last Admin: 12/21/18 09:48 Dose: 20 mg Heparin Sodium/Sodium Chloride (Heparin 84966 Units/250ml 1/2 Normal Saline) 25,000 units in 250 mls @ 10.818 mls/hr IV .Q23H7M PRN; Protocol PRN Reason: ADJUST RATE PER PROTOCOL Last Titration: 12/19/18 18:30 Dose: 15 units/kg/hr, 9.015 mls/hr Lactated Ringer's (Lactated Ringer's) 1,000 mls @ 100 mls/hr IV .Q10H [facility] Last Admin: 12/21/18 07:56 Dose: Not Given Midodrine (Proamatine) 2.5 mg PO TID [facility] Last Admin: 12/21/18 09:58 Dose: 2.5 mg Montelukast Sodium (Singulair) 10 mg PO DAILY [facility] Last Admin: 12/21/18 09:48 Dose: 10 mg Multivitamins (Hexavitamin) 1 tab PO DAILY [facility] Last Admin: 12/21/18 09:48 Dose: 1 tab Rosuvastatin Calcium (Crestor) 5 mg PO HS [facility] Last Admin: 12/21/18 05:20 Dose: Not Given - Labs Labs: 12/21/18 06:18 12/21/18 06:18 PT 11.5 SECONDS (9.7-12.2) 12/21/18 06:18 INR 1.1 12/21/18 06:18 APTT 51 SECONDS (21-34) H D 12/21/18 06:18 - Additional Findings Additional findings: * HEENT TISH * Neck Supple * Chest Clear * CVS Regular, no gallop or rub * PA soft, nt, bs present * Ext no edema * [employer] alert oriented, no aphasia, no weakness no coordination difficulties. * Skin normal turgor. Assessment and Plan - Assessment and Plan (Free Text) Assessment: * Recurrent ischemic episodes due to distal M1 occlusion on left side, but now stabilized with maintainence of BP with midodrine, LR and heparin drip. * Will continue to observe with current management over the weekend. * See orders for detail.
--- NOTE | 2018-12-21 15:33 | CP.PCM.PN ---
Subjective - Date & Time of Evaluation Date of Evaluation: 12/21/18 Time of Evaluation: 15:30 - Subjective Subjective: Mr. Hdz was seen and examined today at bedside in the ICU. He has not had any changes in his neurological exam since yesterday. He was sitting up in his chair and speech was coherent with no significant weakness. I spoke with the patient's and explained the plan for anti-platelet agents tomorrow. Objective - Vital Signs/Intake and Output Vital Signs (last 24 hours): Temp Pulse Resp BP Pulse Ox 98.5 F 61 19 127/82 98 12/21/18 12:00 12/21/18 15:01 12/21/18 15:01 12/21/18 15:01 12/21/18 15:01 Intake and Output: 12/21/18 12/21/18 06:59 18:59 Intake Total 1199 1881 Output Total 200 800 Balance 999 1081 - Medications Medications: Current Medications Albuterol/Ipratropium (Duoneb 3 Mg/0.5 Mg (3 Ml) Ud) 3 ml INH RQ6 PRN PRN Reason: Shortness of Breath Last Admin: 12/21/18 07:50 Dose: 3 ml Aspirin (Aspirin Chewable) 81 mg PO DAILY [facility] Last Admin: 12/21/18 09:50 Dose: 81 mg Budesonide (Pulmicort Respules) 0.5 mg INH RQ12 [facility] Last Admin: 12/21/18 07:50 Dose: 0.5 mg Docusate Sodium (Colace) 100 mg PO BID [facility] Last Admin: 12/21/18 09:48 Dose: 100 mg Famotidine (Pepcid) 20 mg PO DAILY [facility] Last Admin: 12/21/18 09:48 Dose: 20 mg Heparin Sodium/Sodium Chloride (Heparin 10919 Units/250ml 1/2 Normal Saline) 25,000 units in 250 mls @ 10.818 mls/hr IV .Q23H7M PRN; Protocol PRN Reason: ADJUST RATE PER PROTOCOL Last Titration: 12/19/18 18:30 Dose: 15 units/kg/hr, 9.015 mls/hr Lactated Ringer's (Lactated Ringer's) 1,000 mls @ 100 mls/hr IV .Q10H [facility] Last Admin: 12/21/18 15:13 Dose: 100 mls/hr Midodrine (Proamatine) 2.5 mg PO TID [facility] Last Admin: 12/21/18 13:48 Dose: 2.5 mg Montelukast Sodium (Singulair) 10 mg PO DAILY [facility] Last Admin: 12/21/18 09:48 Dose: 10 mg Multivitamins (Hexavitamin) 1 tab PO DAILY [facility] Last Admin: 12/21/18 09:48 Dose: 1 tab Rosuvastatin Calcium (Crestor) 5 mg PO HS [facility] Last Admin: 12/21/18 05:20 Dose: Not Given - Labs Labs: 12/21/18 06:18 12/21/18 06:18 PT 11.5 SECONDS (9.7-12.2) 12/21/18 06:18 INR 1.1 12/21/18 06:18 APTT 51 SECONDS (21-34) H D 12/21/18 06:18 - Constitutional Appears: Well - Head Exam Head Exam: ATRAUMATIC, NORMAL INSPECTION, NORMOCEPHALIC - Eye Exam Eye Exam: EOMI, Normal appearance, PERRL Pupil Exam: NORMAL ACCOMODATION, PERRL - ENT Exam ENT Exam: Mucous Membranes Moist, Normal Exam - Neck Exam Neck Exam: Full ROM, Normal Inspection. absent: Lymphadenopathy - Respiratory Exam Respiratory Exam: Clear to Ausculation Bilateral, NORMAL BREATHING PATTERN - Cardiovascular Exam Cardiovascular Exam: REGULAR RHYTHM, +S1, +S2. absent: Murmur - GI/Abdominal Exam GI & Abdominal Exam: Soft, Normal Bowel Sounds. absent: Tenderness - Rectal Exam Rectal Exam: Deferred - Extremities Exam Extremities Exam: Full ROM, Normal Capillary Refill, Normal Inspection. absent: Joint Swelling, Pedal Edema - Back Exam Back Exam: NORMAL INSPECTION - Neurological Exam Neurological Exam: Alert, Awake, CN II-XII Intact, Normal Gait, Oriented x3, Reflexes Normal Neuro motor strength exam: Left Upper Extremity: 4, Right Upper Extremity: 5, Left Lower Extremity: 5, Right Lower Extremity: 5 Additional comments: slight pronator drift of right arm. NIHSS = 1 - Psychiatric Exam Psychiatric exam: Normal Affect, Normal Mood - Skin Skin Exam: Dry, Intact, Normal Color, Warm Assessment and Plan (1) Hypoperfusion of brain Assessment & Plan: Will continue heparin for another 24 hours and load with aspirin/plavix tomorrow. Will continue midodrine and start PT/OT tomorrow. Q2 hour neuro- checks. May transfer to telemetry tomorrow. Status: Acute
[2018-12-22] MEDS: Lactated Ringer's 1,000 ML IV SCH ×5 (01:43→23:00)
[2018-12-22] MEDS: Heparin25000 units/250ml 1/2NS 25,000 UNITS/250 ML BAG IV PRN (04:23)
[2018-12-22 06:17] LABS: EOS # 0.2 K/uL (0.0-0.7); EOS % 5.4 % (0.0-4.0); HEMOGLOBIN 12.5 g/dL (12.0-18.0); LYMPH # 1.9 K/uL (1.0-4.3); MEAN CELL VOLUME 93.1 fL (80.0-94.0); MEAN CORPUSCULAR HEMOGLOBIN 30.6 pg (27.0-31.0); MEAN CORPUSCULAR HGB CONC 32.8 g/dL (33.0-37.0); MONO # 0.6 K/uL (0.0-0.8); MONO % 13.2 % (0.0-10.0); NEUT # 1.8 K/uL (1.8-7.0); NEUT % 39.4 % (50.0-75.0); NRBC % 0.2 % (0.0-2.0); RBC 4.07 Mil/uL (4.40-5.90); RED CELL DISTRIBUTION WIDTH 13.5 % (11.5-14.5); WHITE BLOOD COUNT 4.6 K/uL (4.8-10.8)
[2018-12-22 06:36] LABS: ALB/GLOB RATIO 1.2 (1.0-2.1); ALBUMIN 3.5 g/dL (3.5-5.0); ALT/SGPT 10 U/L (21-72); AST/SGOT 30 U/L (17-59); BLOOD UREA NITROGEN 17 mg/dL (9-20); CALCIUM 8.9 mg/dl (8.6-10.4); GFR NON-AFRICAN AMERICAN > 60
[2018-12-22] MEDS: Albuterol-Ipratrop 3 mg / 0.5 (3 ml) UD INH PRN ×2 (08:01→19:54)
[2018-12-22] MEDS: Budesonide 0.5 mg/2 ml Inhal Susp UD INH SCH ×2 (08:03→19:54)
[2018-12-22] MEDS: Multiple Vitamins Tab PO SCH (10:09)
--- NOTE | 2018-12-22 11:09 | CP.CCUPN ---
CCU Subjective - Physician Review Subjective (Free Text): PGY-[address] ICU progress note for Dr Rayomnd service Patient is seen and examined sitting in bed. Patient states feeling better today, no acute events overnight reported. Patient states he does not feel weak, or did not experience any slurring of speech. Patient denies any symptoms at this time, eating well and out of bed. CCU Objective - Vital Signs / Intake & Output Vital Signs (Last 4 hours): Vital Signs Pulse Resp BP Pulse Ox 12/22/18 10:04 75 22 147/76 12/22/18 10:00 73 19 92 L 12/22/18 09:57 85 17 147/76 91 L 12/22/18 09:10 97 H 15 151/91 H 12/22/18 09:00 79 19 12/22/18 08:57 77 18 162/92 H 12/22/18 08:00 65 22 98 12/22/18 07:57 66 12 153/85 H 97 12/22/18 07:04 62 15 157/89 H 96 Intake and Output (Last 8hrs): Intake & Output 12/21/18 12/22/18 12/22/18 22:59 06:59 14:59 Intake Total 1154 872 Output Total 150 1600 Balance 1004 -728 Weight 136 lb 8 oz Intake: Intake, IV Amount 654 872 Left Antecubital 54 72 Left Distal Port 600 800 Antecubital Oral 500 Output: Urine 150 1600 Urine, Voided 150 1600 Other: # Bowel Movements 0 - Physical Exam Head: Positive for: Atraumatic, Normocephalic Pupils: Positive for: PERRL Extroacular Muscles: Positive for: EOMI Conjunctiva: Positive for: Normal Neck: Positive for: Normal Range of Motion Respiratory/Chest: Positive for: Clear to Auscultation. Negative for: Wheezes, Rales, Rhonchi Cardiovascular: Positive for: Regular Rate and Rhythm, Normal S1, S2 Abdomen: Positive for: Normal Bowel Sounds. Negative for: Tenderness, Distention Upper Extremity: Positive for: Normal Inspection. Negative for: Edema Lower Extremity: Positive for: Normal Inspection. Negative for: Edema Neurological: Positive for: GCS=15, Motor Func Grossly Intact, Normal Sensory Function, Normal Cerebellar Funct, Normal 2Pt Descrimination, Other (5/5 muscle strength upper and lower extremity b/l) Skin: Positive for: Warm, Dry, Normal Color Psychiatric: Positive for: Alert, Oriented x 3, Normal Insight, Normal Concentration, Normal Affect, Normal Mood - Medications Active Medications: Active Medications Generic Name Dose Route Start Last Admin Trade Name Freq PRN Reason Stop Dose Admin Albuterol/Ipratropium 3 ml 12/17/18 20:00 12/22/18 08:01 Duoneb 3 Mg/0.5 Mg (3 Ml) Ud INH 3 ml RQ6 PRN Administration Shortness of Breath Aspirin 81 mg 12/21/18 10:00 12/22/18 10:09 Aspirin Chewable PO 81 mg DAILY DARSHAN Administration Budesonide 0.5 mg 12/18/18 11:00 12/22/18 08:03 Pulmicort Respules INH Not Given RQ12 DARSHAN Docusate Sodium 100 mg 12/18/18 18:00 12/22/18 10:09 Colace PO 100 mg BID DARSHAN Administration Famotidine 20 mg 12/20/18 10:00 12/22/18 10:09 Pepcid PO 20 mg DAILY DARSHAN Administration Heparin Sodium/Sodium Chloride 25,000 units in 250 mls @ 10.818 mls/hr 12/19/18 15:22 12/22/18 04:23 Heparin 44858 Units/250ml 1/2 Normal Saline IV 15 units/kg/hr .Q23H7M PRN 9.015 mls/hr ADJUST RATE PER PROTOCOL Administration Protocol 18 UNITS/KG/HR Lactated Ringer's 1,000 mls @ 75 mls/hr 12/22/18 09:52 12/22/18 10:17 Lactated Ringer's IV Not Given .[id number] DARSHAN Midodrine 2.5 mg 12/19/18 18:00 12/22/18 10:09 Proamatine PO 2.5 mg TID DARSHAN Administration Montelukast Sodium 10 mg 12/18/18 10:00 12/22/18 10:09 Singulair PO 10 mg DAILY DARSHAN Administration Multivitamins 1 tab 12/18/18 10:00 12/22/18 10:09 Hexavitamin PO 1 tab DAILY DARSHAN Administration Rosuvastatin Calcium 5 mg 12/18/18 22:00 12/21/18 22:57 Crestor PO Not Given HS DARSHAN - Patient Studies Lab Studies: Lab Studies 12/22/18 12/22/18 12/22/18 Range/Units 07:12 06:06 06:05 WBC (4.8-10.8) K/uL RBC (4.40-5.90) Mil/uL Hgb (12.0-18.0) g/dL Hct (35.0-51.0) % MCV (80.0-94.0) fL MCH (27.0-31.0) pg MCHC (33.0-37.0) g/dL RDW (11.5-14.5) % Plt Count (130-400) K/uL MPV (7.2-11.7) fL Neut % (Auto) (50.0-75.0) % Lymph % (Auto) (20.0-40.0) % [place] % (Auto) (0.0-10.0) % Eos % (Auto) (0.0-4.0) % Baso % (Auto) (0.0-2.0) % Neut # (Auto) (1.8-7.0) K/uL Lymph # (Auto) (1.0-4.3) K/uL [place] # (Auto) (0.0-0.8) K/uL Eos # (Auto) (0.0-0.7) K/uL Baso # (Auto) (0.0-0.2) K/uL APTT 54 H (21-34) SECONDS Sodium 136 (132-148) mmol/L Potassium 4.3 (3.6-5.2) mmol/L Chloride 104 (98-107) mmol/L Carbon Dioxide 23 (22-30) mmol/L Anion Gap 12 (10-20) BUN 17 (9-20) mg/dL Creatinine 1.0 (0.8-1.5) mg/dL Est GFR ( Amer) > 60 Est GFR (Non-Af Amer) > 60 POC Glucose (mg/dL) 91 (65-110) mg/dL Random Glucose 75 (75-110) mg/dL Calcium 8.9 (8.6-10.4) mg/dl Phosphorus 3.8 (2.5-4.5) mg/dL Magnesium 1.8 (1.6-2.3) mg/dL Total Bilirubin 0.5 (0.2-1.3) mg/dL AST 30 (17-59) U/L ALT 10 L D (21-72) U/L Alkaline Phosphatase 74 (38-126) U/L Total Protein 6.4 (6.3-8.3) g/dL Albumin 3.5 (3.5-5.0) g/dL Globulin 2.9 (2.2-3.9) gm/dL Albumin/Globulin Ratio 1.2 (1.0-2.1) 12/22/18 12/21/18 12/21/18 Range/Units 06:03 21:05 16:22 WBC 4.6 L (4.8-10.8) K/uL RBC 4.07 L (4.40-5.90) Mil/uL Hgb 12.5 (12.0-18.0) g/dL Hct 38.0 (35.0-51.0) % MCV 93.1 (80.0-94.0) fL MCH 30.6 (27.0-31.0) pg MCHC 32.8 L (33.0-37.0) g/dL RDW 13.5 (11.5-14.5) % Plt Count 208 (130-400) K/uL MPV 9.0 (7.2-11.7) fL Neut % (Auto) 39.4 L (50.0-75.0) % Lymph % (Auto) 41.0 H (20.0-40.0) % [place] % (Auto) 13.2 H (0.0-10.0) % Eos % (Auto) 5.4 H (0.0-4.0) % Baso % (Auto) 1.0 (0.0-2.0) % Neut # (Auto) 1.8 (1.8-7.0) K/uL Lymph # (Auto) 1.9 (1.0-4.3) K/uL [place] # (Auto) 0.6 (0.0-0.8) K/uL Eos # (Auto) 0.2 (0.0-0.7) K/uL Baso # (Auto) 0.0 (0.0-0.2) K/uL APTT (21-34) SECONDS Sodium (132-148) mmol/L Potassium (3.6-5.2) mmol/L Chloride (98-107) mmol/L Carbon Dioxide (22-30) mmol/L Anion Gap (10-20) BUN (9-20) mg/dL Creatinine (0.8-1.5) mg/dL Est GFR ( Amer) Est GFR (Non-Af Amer) POC Glucose (mg/dL) 141 H 100 (65-110) mg/dL Random Glucose (75-110) mg/dL Calcium (8.6-10.4) mg/dl Phosphorus (2.5-4.5) mg/dL Magnesium (1.6-2.3) mg/dL Total Bilirubin (0.2-1.3) mg/dL AST (17-59) U/L ALT (21-72) U/L Alkaline Phosphatase (38-126) U/L Total Protein (6.3-8.3) g/dL Albumin (3.5-5.0) g/dL Globulin (2.2-3.9) gm/dL Albumin/Globulin Ratio (1.0-2.1) Laboratory Results - last 24 hr 12/21/18 12/21/18 12/22/18 16:22 21:05 06:03 WBC 4.6 L RBC 4.07 L Hgb 12.5 Hct 38.0 MCV 93.1 MCH 30.6 MCHC 32.8 L RDW 13.5 Plt Count 208 MPV 9.0 Neut % (Auto) 39.4 L Lymph % (Auto) 41.0 H [place] % (Auto) 13.2 H Eos % (Auto) 5.4 H Baso % (Auto) 1.0 Neut # (Auto) 1.8 Lymph # (Auto) 1.9 [place] # (Auto) 0.6 Eos # (Auto) 0.2 Baso # (Auto) 0.0 APTT Sodium Potassium Chloride Carbon Dioxide Anion Gap BUN Creatinine Est GFR ( Amer) Est GFR (Non-Af Amer) POC Glucose (mg/dL) 100 141 H Random Glucose Calcium Phosphorus Magnesium Total Bilirubin AST ALT Alkaline Phosphatase Total Protein Albumin Globulin Albumin/Globulin Ratio 12/22/18 12/22/18 12/22/18 06:05 06:06 07:12 WBC RBC Hgb Hct MCV MCH MCHC RDW Plt Count MPV Neut % (Auto) Lymph % (Auto) [place] % (Auto) Eos % (Auto) Baso % (Auto) Neut # (Auto) Lymph # (Auto) [place] # (Auto) Eos # (Auto) Baso # (Auto) APTT 54 H Sodium 136 Potassium 4.3 Chloride 104 Carbon Dioxide 23 Anion Gap 12 BUN 17 Creatinine 1.0 Est GFR ( Amer) > 60 Est GFR (Non-Af Amer) > 60 POC Glucose (mg/dL) 91 Random Glucose 75 Calcium 8.9 Phosphorus 3.8 Magnesium 1.8 Total Bilirubin 0.5 AST 30 ALT 10 L D Alkaline Phosphatase 74 Total Protein 6.4 Albumin 3.5 Globulin 2.9 Albumin/Globulin Ratio 1.2 Fingerstick Blood Sugar Results: 171 Review of Systems - Review of Systems All systems: reviewed and no additional remarkable complaints except Review of Systems: as stated in subjective Critical Care Progress Note - Prophylaxis GI Prophylaxis GI: Pepsid - Nutrition Nutrition: Nutrition Category Date Time Status Heart Healthy Diet [DIET] Diets 12/17/18 Dinner Active Assessment/Plan - Assessment and Plan (Free Text) Plan: 68 year old male with pmhx of asthma, CAD, HTN, came to ED for weakness whole body and right side droop of face, slurred speech, code stroke called for possible CVA, repeat CTA and carotid dopplers unremarkable on 12/19, 24 hour video EEG done show left temporal slow questionable lesion vs post ictal, as per Neuro, patient has distal M1 occlusion on left side, with hypotension that increase neuro symptoms, now on BP maintainance, heparin drip Neuro AAOx3 EEG monitor- Continuous slowing in the left temporal region indicates focal intracerebral lesion or postictal state. correlation of symptoms with hypotension BP maintainance to promote collateral development- Midodrine, LR to 75 cc/hr, heparin drip for 24 hours, until reaching PTT goal 70-90, PTT this am 54 f/u neurology recs Cardio BP stable this am BP maintainance - Midodrine, LR to 75 cc/hr, heparin drip for 24 hours Watch BP and monitor for symptoms continue home meds for HTN: norvasc, metoprolol, losartan, HCTZ, crestor Pulm O2 NC Duonebs PRN Pulmicort Singulair GI HHD pepcid ppx Pepcid SCDS, heparin PT/OT Mulitvitamins Dispo: possible downgrade to Tele today, will follow with Dr Hernandez/Mitchell (neuro) recs. Plan discussed with Dr Mandi Mendoza, PGY-1 - Date & Time Date: 12/22/18 Time: 08:00
--- NOTE | 2018-12-22 11:37 | VASCLAB ---
Date of service: 12/18/2018 PROCEDURE: Carotid Duplex Exam. HISTORY: Slurred speech, Weakness, r/o carotid stenosis COMPARISON: None available. TECHNIQUE: Grayscale and duplex Doppler evaluation of the cervical carotid and vertebral arteries were performed. The common carotid, carotid bifurcations and cervical Internal Carotid Artery (ICA) and proximal External Carotid Artery (ECA) were evaluated. The vertebral arteries were evaluated for gross patency and flow direction. Report prepared by Navid Mcclure, BS, RVT FINDINGS: RIGHT CAROTID ARTERIES: 1. Common Carotid Artery: No significant focal plaque formation of the right common carotid artery. Maximum Peak Systolic velocity: 64 cm/sec: End-diastolic velocity 12 cm/sec. 2. Carotid Bifurcation: plaque formation. Maximum Peak Systolic velocity: 57 cm/sec: End-diastolic velocity 11 cm/sec. 3. Internal Carotid Artery: Plaque description: 3.1. Proximal Segment: Peak systolic velocity 81 cm/sec: End-diastolic velocity 15 cm/sec - % stenosis 0-15% 3.2. Middle Segment: Peak systolic velocity 47 cm/sec: End-diastolic velocity 14 cm/sec - % stenosis 0-15% 3.3. Distal Segment: Peak systolic velocity 42 cm/sec: End-diastolic velocity 13 cm/sec - % stenosis 0-15% 4. External Carotid Artery: No significant focal plaque formation. Peak systolic velocity 89 cm/sec 5. ICA/CCA Ratio: 1.3 LEFT CAROTID ARTERIES: 1. Common Carotid Artery: No significant focal plaque formation of the left common carotid artery. Maximum Peak Systolic velocity: 65 cm/sec: End-diastolic velocity 12 cm/sec. 2. Carotid Bifurcation: plaque formation. Maximum Peak Systolic velocity: 66 cm/sec: End-diastolic velocity 15 cm/sec. 3. Internal Carotid Artery: Plaque description: 3.1. Proximal Segment: Peak systolic velocity 62 cm/sec: End-diastolic velocity 13 cm/sec - % stenosis 0-15% 3.2. Middle Segment: Peak systolic velocity 57 cm/sec: End-diastolic velocity 20 cm/sec - % stenosis 0-15% 3.3. Distal Segment: Peak systolic velocity 60 cm/sec: End-diastolic velocity 24 cm/sec - % stenosis 0-15% 4. External Carotid Artery: No significant focal plaque formation. Peak systolic velocity 110 cm/sec 5. ICA/CCA Ratio: 1.0 VERTEBRAL ARTERIES: 1. Right Vertebral Artery: The right vertebral artery flow direction is antegrade. 2. Left Vertebral Artery: The left vertebral artery flow direction is antegrade. OTHER FINDINGS: 1. Right Brachial Blood pressure: 123 mmHg. 2. Left Brachial Blood pressure: mmHg. 3. No atherosclerotic calcification present IMPRESSION: RIGHT: Duplex scan does not suggest hemodynamically significant stenosis of the right extracranial carotid arteries. LEFT: Duplex scan does not suggest hemodynamically significant stenosis of the left extracranial carotid arteries.
--- NOTE | 2018-12-22 14:52 | CP.PCM.PN ---
Subjective - Date & Time of Evaluation Date of Evaluation: 12/22/18 Time of Evaluation: 14:50 - Subjective Subjective: Neurology Follow-Up Note: Mr. Hdz was evaluated this afternoon in the ICU. Family at bedside. Pt states that he feels good today and offers no complaints. He admits to difficulties with his speech being resolved since I last saw him on Saturday. He is eager to be discharged to either home or rehab. Denies h/a, dizziness, visual changes, cheat pain, palpitations, sob, cough, abd pain, n/v/d. Objective - Vital Signs/Intake and Output Vital Signs (last 24 hours): Temp Pulse Resp BP Pulse Ox 98.2 F 65 19 149/89 80 L 12/22/18 12:00 12/22/18 13:00 12/22/18 13:00 12/22/18 12:57 12/22/18 12:00 Intake and Output: 12/22/18 12/22/18 06:59 18:59 Intake Total 1090 1254 Output Total 1600 400 Balance -510 854 - Medications Medications: Current Medications Albuterol/Ipratropium (Duoneb 3 Mg/0.5 Mg (3 Ml) Ud) 3 ml INH RQ6 PRN PRN Reason: Shortness of Breath Last Admin: 12/22/18 08:01 Dose: 3 ml Aspirin (Aspirin Chewable) 81 mg PO DAILY [facility] Last Admin: 12/22/18 10:09 Dose: 81 mg Budesonide (Pulmicort Respules) 0.5 mg INH RQ12 [facility] Last Admin: 12/22/18 08:03 Dose: Not Given Docusate Sodium (Colace) 100 mg PO BID [facility] Last Admin: 12/22/18 10:09 Dose: 100 mg Famotidine (Pepcid) 20 mg PO DAILY [facility] Last Admin: 12/22/18 10:09 Dose: 20 mg Heparin Sodium/Sodium Chloride (Heparin 69854 Units/250ml 1/2 Normal Saline) 25,000 units in 250 mls @ 10.818 mls/hr IV .Q23H7M PRN; Protocol PRN Reason: ADJUST RATE PER PROTOCOL Last Admin: 12/22/18 04:23 Dose: 15 units/kg/hr, 9.015 mls/hr Lactated Ringer's (Lactated Ringer's) 1,000 mls @ 75 mls/hr IV .[id number] [facility] Last Admin: 12/22/18 10:17 Dose: Not Given Midodrine (Proamatine) 2.5 mg PO TID [facility] Last Admin: 12/22/18 14:10 Dose: 2.5 mg Montelukast Sodium (Singulair) 10 mg PO DAILY [facility] Last Admin: 12/22/18 10:09 Dose: 10 mg Multivitamins (Hexavitamin) 1 tab PO DAILY [facility] Last Admin: 12/22/18 10:09 Dose: 1 tab Rosuvastatin Calcium (Crestor) 5 mg PO HS [facility] Last Admin: 12/21/18 22:57 Dose: Not Given - Labs Labs: 12/22/18 06:03 12/22/18 06:06 PT 11.5 SECONDS (9.7-12.2) 12/21/18 06:18 INR 1.1 12/21/18 06:18 APTT 54 SECONDS (21-34) H 12/22/18 06:05 - Constitutional Appears: Well, Non-toxic, No Acute Distress - Head Exam Head Exam: ATRAUMATIC, NORMAL INSPECTION, NORMOCEPHALIC - Eye Exam Eye Exam: EOMI, Normal appearance Pupil Exam: NORMAL ACCOMODATION, PERRL - ENT Exam ENT Exam: Mucous Membranes Moist, Normal Exam - Neck Exam Neck Exam: Full ROM, Normal Inspection - Respiratory Exam Respiratory Exam: NORMAL BREATHING PATTERN - Cardiovascular Exam Cardiovascular Exam: REGULAR RHYTHM - GI/Abdominal Exam GI & Abdominal Exam: Soft - Extremities Exam Extremities Exam: Full ROM. absent: Calf Tenderness, Pedal Edema - Back Exam Back Exam: Full ROM, NORMAL INSPECTION - Neurological Exam Neurological Exam: Alert, Awake, CN II-XII Intact, Oriented x3, Reflexes Normal Neuro motor strength exam: Left Upper Extremity: 5, Right Upper Extremity: 5, Left Lower Extremity: 5, Right Lower Extremity: 5 Additional comments: Speech clear and fluid; no expressive aphasia noted today compared to my last visit with him. No facial asymmetry. Strength equal b/l. Sensation equal and intact b/l. No pronator drift noted. No dysmetria or ataxia noted; no tremors Gait not assessed; PT noted from today reviewed. - Psychiatric Exam Psychiatric exam: Normal Affect, Normal Mood - Skin Skin Exam: Normal Color Assessment and Plan (1) Hypoperfusion of brain Assessment & Plan: -We recommend to d/c the heparin gtt at this time, as the pt has completed 3 full days on it. -Load with Plavix 300 mg PO x1 dose today then continue at 75 mg PO Daily (start this tomorrow). -Continue ASA 81 mg PO Daily. -Continue statin as ordered. -Continue Midodrine as ordered. -Continue PT/OT. -May downgrade to telemetry floor. -PT is recommending TCU---SW to evaluate pt. -Notify neuro team of any acute changes. -Plan discussed at length with ICU resident, Dr. Mendoza, pt and family. Case discussed with Dr. Hernandez Status: Acute
[2018-12-23] MEDS: Lactated Ringer's 1,000 ML IV SCH ×2 (05:05→11:59)
[2018-12-23 06:20] LABS: BASO % 0.9 % (0.0-2.0); EOS # 0.2 K/uL (0.0-0.7); HEMOGLOBIN 12.5 g/dL (12.0-18.0); LYMPH # 1.5 K/uL (1.0-4.3); LYMPH % 32.9 % (20.0-40.0); MEAN CELL VOLUME 92.3 fL (80.0-94.0); MEAN CORPUSCULAR HEMOGLOBIN 30.8 pg (27.0-31.0); MEAN CORPUSCULAR HGB CONC 33.3 g/dL (33.0-37.0); MEAN PLATELET VOLUME 9.1 fL (7.2-11.7); MONO # 0.7 K/uL (0.0-0.8); MONO % 15.3 % (0.0-10.0); NEUT # 2.1 K/uL (1.8-7.0); NEUT % 45.9 % (50.0-75.0); RBC 4.08 Mil/uL (4.40-5.90); RED CELL DISTRIBUTION WIDTH 13.7 % (11.5-14.5); WHITE BLOOD COUNT 4.6 K/uL (4.8-10.8)
[2018-12-23 06:50] LABS: ALB/GLOB RATIO 1.3 (1.0-2.1); ALBUMIN 3.7 g/dL (3.5-5.0); ALT/SGPT 28 U/L (21-72); AST/SGOT 64 U/L (17-59); BLOOD UREA NITROGEN 17 mg/dL (9-20); CALCIUM 9.1 mg/dl (8.6-10.4); GFR NON-AFRICAN AMERICAN > 60
[2018-12-23] MEDS: Albuterol-Ipratrop 3 mg / 0.5 (3 ml) UD INH PRN ×2 (07:40→13:51)
[2018-12-23] MEDS: Budesonide 0.5 mg/2 ml Inhal Susp UD INH SCH ×2 (07:41→21:15)
[2018-12-23] MEDS: Multiple Vitamins Tab PO SCH (09:34)
--- NOTE | 2018-12-23 14:21 | CP.PCM.PN ---
Subjective - Date & Time of Evaluation Date of Evaluation: 12/23/18 Time of Evaluation: 14:19 - Subjective Subjective: Neurology Follow-Up Note: Mr. Hdz was evaluated this afternoon in the ICU. Family at bedside. He was downgraded yesterday afternoon to telemetry. Pt states that he feels good today and is ready to be d/c. He offers no complaints today. Denies h/a, dizziness, visual changes, chest pain, palpitations, sob, cough, abd pain, n/v/d. He also denies any difficulty with speech. Objective - Vital Signs/Intake and Output Vital Signs (last 24 hours): Temp Pulse Resp BP Pulse Ox 97.8 F 66 18 125/77 100 12/23/18 12:00 12/23/18 12:00 12/23/18 11:00 12/23/18 08:44 12/23/18 12:00 Intake and Output: 12/23/18 12/23/18 06:59 18:59 Intake Total 1140 950 Output Total 2100 450 Balance -960 500 - Medications Medications: Current Medications Albuterol/Ipratropium (Duoneb 3 Mg/0.5 Mg (3 Ml) Ud) 3 ml INH RQ6 PRN PRN Reason: Shortness of Breath Last Admin: 12/23/18 13:51 Dose: 3 ml Aspirin (Aspirin Chewable) 81 mg PO DAILY [facility] Last Admin: 12/23/18 09:34 Dose: 81 mg Budesonide (Pulmicort Respules) 0.5 mg INH RQ12 [facility] Last Admin: 12/23/18 07:41 Dose: 0.5 mg Clopidogrel Bisulfate (Plavix) 75 mg PO DAILY [facility] Last Admin: 12/23/18 09:33 Dose: 75 mg Docusate Sodium (Colace) 100 mg PO BID [facility] Last Admin: 12/23/18 09:34 Dose: Not Given Famotidine (Pepcid) 20 mg PO DAILY [facility] Last Admin: 12/23/18 09:33 Dose: 20 mg Lactated Ringer's (Lactated Ringer's) 1,000 mls @ 75 mls/hr IV .[id number] [facility] Last Admin: 12/23/18 11:59 Dose: Not Given Midodrine (Proamatine) 2.5 mg PO TID [facility] Last Admin: 12/23/18 13:36 Dose: Not Given Montelukast Sodium (Singulair) 10 mg PO DAILY [facility] Last Admin: 12/23/18 09:33 Dose: 10 mg Multivitamins (Hexavitamin) 1 tab PO DAILY [facility] Last Admin: 12/23/18 09:34 Dose: 1 tab Rosuvastatin Calcium (Crestor) 5 mg PO HS [facility] Last Admin: 12/22/18 21:00 Dose: 5 mg - Labs Labs: 12/23/18 06:07 12/23/18 06:07 PT 11.5 SECONDS (9.7-12.2) 12/21/18 06:18 INR 1.1 12/21/18 06:18 APTT 54 SECONDS (21-34) H 12/22/18 06:05 - Constitutional Appears: Well, Non-toxic, No Acute Distress - Head Exam Head Exam: ATRAUMATIC, NORMAL INSPECTION, NORMOCEPHALIC - Eye Exam Eye Exam: EOMI, Normal appearance, PERRL Pupil Exam: NORMAL ACCOMODATION, PERRL - ENT Exam ENT Exam: Mucous Membranes Moist, Normal Exam - Neck Exam Neck Exam: Full ROM, Normal Inspection - Respiratory Exam Respiratory Exam: NORMAL BREATHING PATTERN - Cardiovascular Exam Cardiovascular Exam: REGULAR RHYTHM (hr 67 on tele mx; sbp 140) - GI/Abdominal Exam GI & Abdominal Exam: Soft - Extremities Exam Extremities Exam: Full ROM, Normal Inspection. absent: Calf Tenderness, Pedal Edema - Back Exam Back Exam: Full ROM, NORMAL INSPECTION - Neurological Exam Neurological Exam: Alert, Awake, CN II-XII Intact, Oriented x3, Reflexes Normal Neuro motor strength exam: Left Upper Extremity: 5, Right Upper Extremity: 5, Left Lower Extremity: 5, Right Lower Extremity: 5 Additional comments: Speech clear and fluid; no expressive aphasia. No facial asymmetry. Strength equal b/l. Sensation equal and intact b/l. No pronator drift noted. No dysmetria or ataxia noted; no tremors Gait not assessed; PT noted from today reviewed. - Psychiatric Exam Psychiatric exam: Normal Affect, Normal Mood - Skin Skin Exam: Normal Color Assessment and Plan (1) Hypoperfusion of brain Assessment & Plan: Imaging reviewed: -CT head (12/18/18): No evidence of acute infarct. No intracranial mass or hemorrhage. Mild age-appropriate atrophy and chronic white matter ischemic change. No change from 12/17/2018. -MRA Neck (12/17/18): No significant stenosis bilateral common or internal carotid arteries with prominent right and [id number] left carotid bulbar atherosclerotic plaque identified. No significant stenosis in either common or internal carotid artery as imaged. -MRA Head (12/17/18): Limited examination due to motion artifacts. This is most apparent in evaluation of the basilar artery, including source images. No significant interval stenosis or occlusion is felt to be present, particularly based on source images in this noncontrast MRI of the brain. The CT angiogram of the brain is felt to be far more robust in evaluation of the arterial anatomy of the brain and neck unless there has been a significant change in the neurological status since prior CT head and neck 12/17/2018 9:41 a.m.. Note, no acute intracranial findings are demonstrated in brain MRI immediately preceding this examination 12/17/2018. -MRI Brain (12/17/18): Stable age-appropriate limited age related neuro d egenerative change are identified as discussed above. There is no abnormal intracranial enhancement throughout the brain or extra-axial spaces.. -CTA Head and neck (12/17/18): 1. Limited bilateral carotid bulbar atherosclerosis without significant stenosis in the bilateral common or internal carotid arteries identified. 2. Bilateral cavernous partially calcified atherosclerosis with a least moderate stenosis at the right but no significant left-sided stenosis. Bilateral ICAs appear patent through their bifurcations. 3. No definite intracranial or extracranial arterial occlusion appreciable. 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 -CT Head (12/17/18): No evidence of acute infarct. No intracranial hemorrhage. Minimal chronic white matter ischemic change. -Continue Plavix 75 mg PO Daily in hospital and upon d/c. -Continue ASA 81 mg PO Daily in hospital and upon d/c. -Continue statin in hospital and upon d/c. -We will stop the Midodrine today and continue to monitor the BP until tomorrow. If BP remains stable tomorrow, he can be d/c without it. I will re-evaluate the need for this tomorrow and discuss with Dr. Hernandez. -Continue PT/OT. -Notify neuro team of any acute changes. Case discussed with Dr. Hernandez Status: Acute
[2018-12-24] MEDS: Albuterol-Ipratrop 3 mg / 0.5 (3 ml) UD INH PRN (07:15)
[2018-12-24] MEDS: Budesonide 0.5 mg/2 ml Inhal Susp UD INH SCH ×2 (07:15)
[2018-12-24 08:25] VITALS: RESP 20; TEMP 97.5
[2018-12-24] MEDS: Multiple Vitamins Tab PO SCH (09:20)
--- NOTE | 2018-12-24 14:35 | CP.PCM.PN ---
Subjective - Date & Time of Evaluation Date of Evaluation: 12/24/18 Time of Evaluation: 14:31 - Subjective Subjective: PGY2 Medicine Note for Dr. Hopper Patient was seen and examined this morning at bedside. Patient is seen sitting up resting comfortably. He reports feeling well and is without any complaints. He has been eating and drinking well. He is improving with PT and is still without any deficits. Patient has no complaints and is hopeful that he will be discharged home today. Objective - Vital Signs/Intake and Output Vital Signs (last 24 hours): Temp Pulse Resp BP Pulse Ox 97.5 F L 74 20 134/87 95 12/24/18 08:00 12/24/18 08:00 12/24/18 08:00 12/24/18 08:00 12/24/18 08:00 - Medications Medications: Current Medications Albuterol/Ipratropium (Duoneb 3 Mg/0.5 Mg (3 Ml) Ud) 3 ml INH RQ6 PRN PRN Reason: Shortness of Breath Last Admin: 12/24/18 07:15 Dose: 3 ml Aspirin (Aspirin Chewable) 81 mg PO DAILY [facility] Last Admin: 12/24/18 09:20 Dose: 81 mg Budesonide (Pulmicort Respules) 0.5 mg INH RQ12 [facility] Last Admin: 12/24/18 07:15 Dose: Not Given Clopidogrel Bisulfate (Plavix) 75 mg PO DAILY [facility] Last Admin: 12/24/18 09:20 Dose: 75 mg Docusate Sodium (Colace) 100 mg PO BID [facility] Last Admin: 12/24/18 09:20 Dose: 100 mg Famotidine (Pepcid) 20 mg PO DAILY [facility] Last Admin: 12/24/18 09:20 Dose: 20 mg Montelukast Sodium (Singulair) 10 mg PO DAILY [facility] Last Admin: 12/24/18 09:20 Dose: 10 mg Multivitamins (Hexavitamin) 1 tab PO DAILY [facility] Last Admin: 12/24/18 09:20 Dose: 1 tab Rosuvastatin Calcium (Crestor) 5 mg PO HS [facility] Last Admin: 12/23/18 21:17 Dose: 5 mg - Labs Labs: 12/23/18 06:07 12/23/18 06:07 PT 11.5 SECONDS (9.7-12.2) 12/21/18 06:18 INR 1.1 12/21/18 06:18 APTT 54 SECONDS (21-34) H 12/22/18 06:05 - Constitutional Appears: Non-toxic, No Acute Distress - Head Exam Head Exam: ATRAUMATIC - Eye Exam Eye Exam: EOMI, Normal appearance, PERRL - ENT Exam ENT Exam: Mucous Membranes Moist - Neck Exam Neck Exam: absent: Lymphadenopathy - Respiratory Exam Respiratory Exam: Clear to Ausculation Bilateral, NORMAL BREATHING PATTERN. absent: Accessory Muscle Use, Rales, Rhonchi, Wheezes, Respiratory Distress - Cardiovascular Exam Cardiovascular Exam: REGULAR RHYTHM, +S1, +S2 - GI/Abdominal Exam GI & Abdominal Exam: Soft. absent: Distended, Firm, Guarding, Rigid, Tenderness - Extremities Exam Extremities Exam: absent: Calf Tenderness, Pedal Edema - Neurological Exam Neurological Exam: Alert, Awake, CN II-XII Intact, Oriented x3 Neuro motor strength exam: Left Upper Extremity: 5, Right Upper Extremity: 5, Left Lower Extremity: 5, Right Lower Extremity: 5 - Psychiatric Exam Psychiatric exam: Normal Affect, Normal Mood - Skin Skin Exam: Dry, Warm Assessment and Plan - Assessment and Plan (Free Text) Plan: Hypoperfusion of Brain CODE Stroke Neuro consulted, Dr. Hernandez - help appreciated CT head (12/18/18): * No evidence of acute infarct. No intracranial mass or hemorrhage. Mild age- appropriate atrophy and chronic white matter ischemic change. No change from 12/17/2018. MRA Neck (12/17/18): * No significant stenosis bilateral common or internal carotid arteries with prominent right and [id number] left carotid bulbar atherosclerotic p laque identified. No significant stenosis in either common or internal carotid artery as imaged. MRA Head (12/17/18): * Limited examination due to motion artifacts. This is most apparent in evaluation of the basilar artery, including source images. No significant interval stenosis or occlusion is felt to be present, particularly based on source images in this noncontrast MRI of the brain. The CT angiogram of the brain is felt to be far more robust in evaluation of the arterial anatomy of the brain and neck unless there has been a significant change in the neurological status since prior CT head and neck 12/17/2018 9:41 a.m.. Note, no acute intracranial findings are demonstrated in brain MRI immediately preceding this examination 12/17/2018. MRI Brain (12/17/18): * Stable age-appropriate limited age related neuro degenerative change are identified as discussed above. There is no abnormal intracranial enhancement throughout the brain or extra-axial spaces.. CTA Head and neck (12/17/18): * 1. Limited bilateral carotid bulbar atherosclerosis without significant stenosis in the bilateral common or internal carotid arteries identified. * 2. Bilateral cavernous partially calcified atherosclerosis with a least moderate stenosis at the right but no significant left-sided stenosis. Gian ateral ICAs appear patent through their bifurcations. 3. No definite intracranial or extracranial arterial occlusion appreciable. 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 CT Head (12/17/18): * No evidence of acute infarct. No intracranial hemorrhage. Minimal chronic white matter ischemic change. EEG 12/18/18: * This is an abnormal awake and sleep video EEG. Continuous slowing in the left temporal region indicates focal intracerebral lesion or postictal state. Patient has been medically cleared to be discharged home. No focal neuro deficits. No aphasia. Patient and family at bedside were instructed to discontinue all medications except for the medications included in the discharge instructions. He is not to take any more of his blood pressure medications until he follows up with Dr. Hopper. DISPO: Patient is to be discharged home today with the following instructions: Patient is to be discharged home per Dr. Hopper. Patient is to follow up with his primary care physician within 1 week of being discharged home. Please call and schedule an appointment. Patient is to follow up with Dr. Hernandez (Neurology) within 1 week of being discharged home. Please call and schedule an appointment. Patient is to take all of his medications as prescribed. These medications listed below are the only medications he should be taking at this time. - Aspirin 81mg, take 1 tablet by mouth once a day - Clopidogrel (Plavix) 75mg, take 1 tablet by mouth once a day - Budesonide (Pulmicort) 0.5mg INH, take 1 treatment every 12 hours - Montelukast (Singulair) 10mg, take 1 tablet by mouth once a day - Rosuvastatin Calcium 5mg, take 1 tablet by mouth once at bedtime - Albuterol HFA, take 1 puff as needed for shortness of breath/wheezing Patient will be sent home with a prescription for home physical therapy. If patient experiences any new or worsening symptoms, please call your primary care physician's office or Dr. Hernandez's office or go directly to the nearest emergency department. All medical management per Dr. Ruchi Metcalf Juan PGY2
--- NOTE | 2018-12-24 14:54 | CP.PCM.PN ---
Subjective - Date & Time of Evaluation Date of Evaluation: 12/24/18 Time of Evaluation: 14:54 - Subjective Subjective: Neurology Follow-Up Note: Mr. Hdz was evaluated this afternoon. Family at bedside. Pt states that he feels good today and is ready to be d/c. He offers no complaints today. Denies h/a, dizziness, visual changes, chest pain, palpitations, sob, cough, abd pain, n/v/d. He also denies any difficulty with speech. Objective - Vital Signs/Intake and Output Vital Signs (last 24 hours): Temp Pulse Resp BP Pulse Ox 97.5 F L 74 20 134/87 95 12/24/18 08:00 12/24/18 08:00 12/24/18 08:00 12/24/18 08:00 12/24/18 08:00 - Medications Medications: Current Medications Albuterol/Ipratropium (Duoneb 3 Mg/0.5 Mg (3 Ml) Ud) 3 ml INH RQ6 PRN PRN Reason: Shortness of Breath Last Admin: 12/24/18 07:15 Dose: 3 ml Aspirin (Aspirin Chewable) 81 mg PO DAILY [facility] Last Admin: 12/24/18 09:20 Dose: 81 mg Budesonide (Pulmicort Respules) 0.5 mg INH RQ12 [facility] Last Admin: 12/24/18 07:15 Dose: Not Given Clopidogrel Bisulfate (Plavix) 75 mg PO DAILY [facility] Last Admin: 12/24/18 09:20 Dose: 75 mg Docusate Sodium (Colace) 100 mg PO BID [facility] Last Admin: 12/24/18 09:20 Dose: 100 mg Famotidine (Pepcid) 20 mg PO DAILY [facility] Last Admin: 12/24/18 09:20 Dose: 20 mg Montelukast Sodium (Singulair) 10 mg PO DAILY [facility] Last Admin: 12/24/18 09:20 Dose: 10 mg Multivitamins (Hexavitamin) 1 tab PO DAILY [facility] Last Admin: 12/24/18 09:20 Dose: 1 tab Rosuvastatin Calcium (Crestor) 5 mg PO HS [facility] Last Admin: 12/23/18 21:17 Dose: 5 mg - Labs Labs: 12/23/18 06:07 12/23/18 06:07 PT 11.5 SECONDS (9.7-12.2) 12/21/18 06:18 INR 1.1 12/21/18 06:18 APTT 54 SECONDS (21-34) H 12/22/18 06:05 - Constitutional Appears: Well, Non-toxic, No Acute Distress - Head Exam Head Exam: ATRAUMATIC, NORMAL INSPECTION, NORMOCEPHALIC - Eye Exam Eye Exam: EOMI, Normal appearance, PERRL Pupil Exam: NORMAL ACCOMODATION, PERRL - ENT Exam ENT Exam: Mucous Membranes Moist, Normal Exam - Neck Exam Neck Exam: Full ROM, Normal Inspection - Respiratory Exam Respiratory Exam: NORMAL BREATHING PATTERN - Extremities Exam Extremities Exam: Full ROM. absent: Calf Tenderness, Pedal Edema - Back Exam Back Exam: Full ROM, NORMAL INSPECTION - Neurological Exam Neurological Exam: Alert, Awake, CN II-XII Intact, Normal Gait, Oriented x3, Reflexes Normal Neuro motor strength exam: Left Upper Extremity: 5, Right Upper Extremity: 5, Left Lower Extremity: 5, Right Lower Extremity: 5 Additional comments: Speech clear and fluid; no expressive aphasia. No facial asymmetry. Strength equal b/l. Sensation equal and intact b/l. No pronator drift noted. No dysmetria or ataxia noted; no tremors - Psychiatric Exam Psychiatric exam: Normal Affect, Normal Mood - Skin Skin Exam: Normal Color Assessment and Plan (1) Hypoperfusion of brain Assessment & Plan: Imaging reviewed: -CT head (12/18/18): No evidence of acute infarct. No intracranial mass or hemorrhage. Mild age-appropriate atrophy and chronic white matter ischemic change. No change from 12/17/2018. -MRA Neck (12/17/18): No significant stenosis bilateral common or internal carotid arteries with prominent right and [id number] left carotid bulbar atherosclerotic plaque identified. No significant stenosis in either common or internal carotid artery as imaged. -MRA Head (12/17/18): Limited examination due to motion artifacts. This is most apparent in evaluation of the basilar artery, including source images. No significant interval stenosis or occlusion is felt to be present, particularly based on source images in this noncontrast MRI of the brain. The CT angiogram of the brain is felt to be far more robust in evaluation of the arterial anatomy of the brain and neck unless there has been a significant change in the neurological status since prior CT head and neck 12/17/2018 9:41 a.m.. Note, no acute intracranial findings are demonstrated in brain MRI immediately preceding this examination 12/17/2018. -MRI Brain (12/17/18): Stable age-appropriate limited age related neuro degenerative change are identified as discussed above. There is no abnormal intracranial enhancement throughout the brain or extra-axial spaces.. -CTA Head and neck (12/17/18): 1. Limited bilateral carotid bulbar atherosclerosis without significant stenosis in the bilateral common or internal carotid arteries identified. 2. Bilateral cavernous partially calcified atherosclerosis with a least moderate stenosis at the right but no significant left-sided stenosis. Bilateral ICAs appear patent through their bifurcations. 3. No definite intracranial or extracranial arterial occlusion appreciable. 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 -CT Head (12/17/18): No evidence of acute infarct. No intracranial hemorrhage. Minimal chronic white matter ischemic change. -Continue Plavix 75 mg PO Daily in hospital and upon d/c. -Continue ASA 81 mg PO Daily in hospital and upon d/c. -Continue statin in hospital and upon d/c. -Midodrine has been d/c'd; pt does not need to continue taking upon d/c -Home or outpatient PT -Follow up with Dr. Hernandez/Dr. Medrano in the office within 4 weeks. F/u with PMD, Dr. Hopper within 1-2 weeks. Case discussed with Dr. Hernandez Status: Acute
[2018-12-24 16:39] VITALS: BP 125/84; PULSE 75; O2SAT 98
--- NOTE | 2018-12-30 07:55 | DS ---
The patient was admitted to the hospital facial weakness and arm weakness which has improved gradually overtime. The patient also has a lesion of the of the MRA. The patient is on anticoagulant. The patient is to bedrest. Neurology and cardiology evaluation. The patient is on physical therapy, aspirin and Plavix. The patient showed gradual improvement. Discharged to be followed as outpatient. DIAGNOSIS: transient ischemic attacks. The patient will continue to follow up as an outpatient. . Hi Hopper MD
== END 2018-12-24 17:36 | disposition home or self-care (01) | DRG 69 ==
LOC: C.ER 09:13 → C.9E 11:33 → C.9I 11:45 → C.5S 12-23 18:21
PROVIDERS: ADMIT Internal Medicine Pulmonary Disease; ATTEND Internal Medicine Pulmonary Disease
DX: G45.9 Transient cerebral ischemic attack, unspecified (principal); R47.01 Aphasia; J44.9 Chronic obstructive pulmonary disease, unspecified; I25.10 Atherosclerotic heart disease of native coronary artery without angina pectoris; F17.210 Nicotine dependence, cigarettes, uncomplicated; I10 Essential (primary) hypertension; G40.909 Epilepsy, unspecified, not intractable, without status epilepticus